=== PATIENT | female | born 1960 | race Hispanic/Latino ===

== ENCOUNTER 2017-08-25 09:13 | Outpatient (CLI) | payer OTHER ==
[2017-08-25] MEDS ORDERED: Iopamidol 370 76% 100 ML VIAL ONE (11:40)
--- NOTE | 2017-08-25 13:02 | CT ---
CT ABDOMEN WITH IV CONTRAST: HISTORY: Renal cysts, acquired bilaterally. FINDINGS: The lung bases are clear. The liver demonstrates decreased attenuation, compared to the spleen, cons istent with fatty infiltration. No calcified gallstones are seen. The spleen, pancreas, and adrenal glands are normal. The right kidney is normal. There is an extrarenal pelvis on the left. A 7 mm, low density lesion i s seen in the posterior cortex of the left kidney, too small to characterize. No free air, free fluid, or lymphadenopathy is seen in the abdomen or pelvis. There are vascular jairo cifications without evidence of aneurysmal dilatation of the abdominal aorta. There is sigmoid diver ticulosis without diverticulitis. A uterus is present. There are degenerative changes in the spine. IMPRESSION: 1. Fatty liver. 2. A 7 mm indeterminate lesion in the left renal cortex. A renal ultrasound would be helpful. 3. Sigmoid diverticulosis. POS: OFF
== END 2017-08-25 09:14 | disposition home or self-care (01) ==
LOC: CT 09:13
PROVIDERS: ATTEND Nurse Practitioner Family
DX: N28.1 Cyst of kidney, acquired (principal); K76.0 Fatty (change of) liver, not elsewhere classified; N28.89 Other specified disorders of kidney and ureter; K57.30 Diverticulosis of large intestine without perforation or abscess without bleeding
CPT/HCPCS: 74160

== ENCOUNTER 2017-08-25 10:47 | Outpatient (CLI) | payer BC | END 2017-08-25 10:48 | disposition home or self-care (01) | LOC: BICMAMMO 10:47 | PROVIDERS: ATTEND Nurse Practitioner Family | DX: Z12.31 Encounter for screening mammogram for malignant neoplasm of breast (principal) | CPT/HCPCS: 77063; 77067 ==

== ENCOUNTER 2017-11-24 12:01 | Outpatient (CLI) | payer BC, OTHER | END 2017-11-24 12:02 | disposition home or self-care (01) | LOC: BICRAD 12:01 | PROVIDERS: ATTEND Internal Medicine Rheumatology | DX: M25.551 Pain in right hip (principal); M25.561 Pain in right knee; M16.11 Unilateral primary osteoarthritis, right hip; M65.28 Calcific tendinitis, other site; M17.11 Unilateral primary osteoarthritis, right knee ==

== ENCOUNTER 2018-11-08 01:34 | Inpatient (IN) | payer BC ==
[2018-11-08] MEDS ORDERED: diphenhydrAMINE 50 MG/ML VIAL ONE (02:02)
[2018-11-08] MEDS ORDERED: Metoclopramide HCl 10 MG/2 ML VIAL ONE (02:07)
[2018-11-08] MEDS ORDERED: Ondansetron PF 4 MG/2 ML Vial ONE ×2 (02:18→09:50)
[2018-11-08] MEDS ORDERED: Morphine 4 MG/ML VIAL ONE (02:18)
[2018-11-08 02:30] LABS: #Basophils 0.1 thou/uL (0.0-0.2); #Eosinphils 0.2 thou/uL (0.0-0.7); #Lymphocytes 2.9 thou/uL (1.20-3.40); #Monocytes 0.8 thou/uL (0.11-0.59); #Neutrophils 9.9 thou/uL (1.40-6.50); %Basophils 0.5 % (0.0-1.0); %Eosinophils 1.2 % (0.0-10.0); %Lymphocytes 21.1 % (21.0-51.0); %Monocytes 5.8 % (0.0-10.0); %Neutrophils 71.4 % (42.0-75.0); Hemoglobin 13.6 g/dL (12.0-16.0); Mean Corpuscular HGB CONC 34.2 g/dL (32.0-36.0); Mean Corpuscular Hemoglobin 31.1 pg (27.0-31.0); Mean Corpuscular Volume 90.8 fL (78.0-98.0); Mean Platelet Volume 7.1 fL (7.4-10.4); Platelet Count 286 thou/uL (130-400); RBC Distribution Width 11.5 % (11.5-14.5); Red Blood Cell (RBC) Count 4.38 mill/uL (4.20-5.40); White Blood Cell (WBC) Count 13.8 thou/uL (4.8-10.8)
[2018-11-08 02:38] LABS: PTT 25.9 SEC (22.9-36.1); Prothrombin Time 13.2 SEC (12.0-14.7)
[2018-11-08 02:51] LABS: ALT (SGPT) 25 U/L (8-55); AST (SGOT) 23 U/L (5-34); Albumin 4.3 g/dL (3.5-5.0); Alkaline Phosphatase 123 U/L (40-150); Anion Gap 14 mmol/L (10-20); BUN (Urea Nitrogen) 17 mg/dL (9.8-20.1); Bilirubin, Total 0.3 mg/dL (0.2-1.2); Calc. Creatinine Clearance 0 mL/min (70-130); Calcium 9.6 mg/dL (7.8-10.44); Carbon Dioxide 24 mmol/L (22-29); Chloride 102 mmol/L (98-107); Estimated GFR-MDRD 78; Globulin 3.7 g/dL (2.4-3.5); Glucose 165 mg/dL (70-105); Potassium 3.7 mmol/L (3.5-5.1); Sodium 136 mmol/L (136-145)
[2018-11-08] MEDS ORDERED: Docusate 100 MG CAP PO PRN (02:51)
[2018-11-08] MEDS ORDERED: diphenhydrAMINE 50 MG CAP PO PRN (02:51)
[2018-11-08] MEDS ORDERED: hydrALAZINE 20 MG/ML VIAL SLOW IVP PRN (02:51)
[2018-11-08] MEDS ORDERED: Labetalol HCl 100 MG/20 ML VIAL SLOW IVP PRN (02:51)
[2018-11-08] MEDS ORDERED: Mag-Al 1200 mg/1200 mg/30 ML UDCUP PO PRN (02:51)
[2018-11-08] MEDS ORDERED: CCU Electrolyte Replacement 1 EACH FS ONE (02:57)
[2018-11-08] MEDS ORDERED: niCARdipine HCl 50 MG in Sodium Chloride 0.9% 250 ML 230 ML IVPB SCH (03:00)
[2018-11-08] MEDS ORDERED: CCU ELECTROLYTE REPLACEMENT PROTOCOL FS PRN (03:03)
[2018-11-08] MEDS ORDERED: Potassium Phosphate 9 MMOL in Sodium Chloride 0.9% 100 ML IVPB PRN (03:03)
[2018-11-08] MEDS ORDERED: PHOS-NAK 1 PKT PACK PO PRN ×2 (03:03)
[2018-11-08] MEDS ORDERED: Potassium Phosphate 15 MMOL in Sodium Chloride 0.9% 250 ML 250 ML IV PRN (03:03)
[2018-11-08] MEDS ORDERED: Magnesium 2 GM/50 ML 2 GM in Premix Bag 1 BAG IVPB PRN (03:03)
[2018-11-08] MEDS ORDERED: Potassium Phosphate 12 MMOL in Sodium Chloride 0.9% 250 ML 250 ML IV PRN (03:03)
[2018-11-08] MEDS ORDERED: Potassium Chloride 40 MEQ in Sodium Chloride 0.9% 250 ML 250 ML IVPB PRN (03:03)
[2018-11-08] MEDS ORDERED: Magnesium Oxide 400 MG TAB PO PRN ×2 (03:03)
[2018-11-08] MEDS ORDERED: niCARdipine 20MG In NaCl 20 MG/200 ML BAG ONE (03:24)
[2018-11-08 03:52] LABS: Bilirubin Negative (Negative); Blood, Urine Negative (Negative); Clarity CLEAR (Clear); Glucose, Urine (Dipstick) Negative (Negative); Leukocyte Negative (Negative); Nitrite Negative (Negative); Protein, Urine (Dipstick) Negative (Neg-Trace); Specific Gravity, Urine 1.037 (1.002-1.036); Urobilinogen 0.2 mg/dL (0.2-1.0)
--- NOTE | 2018-11-08 03:58 | HP ---
HISTORY OF PRESENT ILLNESS: Ms. Mota is a 57-year-old woman, who around midnight tonight, developed severe thunderclap headache with nausea and vomiting and then immediately proceeded to the emergency department here with a CT scan performed revealing diffuse subarachnoid hemorrhage. 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 Her blood pressure when presenting to the department was 158/77. Her current blood pressure is 145/75, I would like to see the systolics below 140. She denies any significant history other than hypertension. Denies taking any blood thinning medications, stating that she only takes home remedies for minor conditions. She does report a known history of hypertension, but does not take medications for this. At bedside, the patient is slightly altered and confused, but is able to tell me her name, date of , location through a son who is interpreting. Pupils are equal, round, and reactive to light. She has full motor function of the bilateral upper and bilateral lower extremities. She continually is rubbing her head and moaning regarding the pain that she feels secondary to this bleed. PAST MEDICAL HISTORY: Significant for diabetes, hypertension. CURRENT MEDICATIONS: Again home remedies, none otherwise. ALLERGIES: NO KNOWN DRUG ALLERGIES. PAST SURGICAL HISTORY: Tubal ligation. PHYSICAL EXAMINATION: HEENT: Pupils equal, round, and reactive to light. Extraocular movements are intact. GENERAL: The patient is in moderate distress, rubbing her head. HEAD: Normocephalic, atraumatic. NEUROLOGIC: 5/5 strength in bilateral upper and bilateral lower extremities. GCS 15. ASSESSMENT: Aneurysmal subarachnoid hemorrhage. PLAN: At this time, we will admit to the ICU. We will consult our hospitalist team for medical management support. She will need pressure control likely with Cardene with systolic pressures under 140 strict. We will need to place a Lima catheter and run normal saline at 125. We will repeat a CT scan at 8 o'clock this morning. We will discuss case with Dr. Crow. The patient will likely need a diagnostic angiogram with coiling later today. We will also start amlodipine and hold her p.o. intake other than medications at this time. Head of bed elevated at 30, and we will need to minimize pain as much as possible. Job ID: [id number]
[2018-11-08] MEDS: Morphine 4 MG/ML VIAL SLOW IVP PRN ×3 (04:21→21:24)
[2018-11-08] MEDS: Sodium Chloride 0.9% 1,000 ML IV SCH ×3 (04:22→20:04)
[2018-11-08] MEDS: niMODipine 30 MG CAP PO SCH ×5 (04:46→20:03)
[2018-11-08] MEDS ORDERED: Dextrose 5% in Water 1,000 ML IV PRN (06:04)
[2018-11-08] MEDS ORDERED: Dextrose 50% Abboject 50 ML SYRINGE SLOW IVP PRN (06:04)
[2018-11-08 06:18] LABS: #Lymphocytes 1.3 thou/uL (1.20-3.40); #Monocytes 0.3 thou/uL (0.11-0.59); #Neutrophils 11.5 thou/uL (1.40-6.50); %Basophils 0.1 % (0.0-1.0); %Eosinophils 0.2 % (0.0-10.0); %Lymphocytes 9.7 % (21.0-51.0); %Monocytes 2.5 % (0.0-10.0); %Neutrophils 87.4 % (42.0-75.0); Hemoglobin 13.6 g/dL (12.0-16.0); Mean Corpuscular HGB CONC 33.5 g/dL (32.0-36.0); Mean Corpuscular Hemoglobin 30.5 pg (27.0-31.0); Mean Corpuscular Volume 91.3 fL (78.0-98.0); Mean Platelet Volume 7.4 fL (7.4-10.4); Platelet Count 273 thou/uL (130-400); RBC Distribution Width 11.6 % (11.5-14.5); Red Blood Cell (RBC) Count 4.47 mill/uL (4.20-5.40); White Blood Cell (WBC) Count 13.1 thou/uL (4.8-10.8)
--- NOTE | 2018-11-08 06:31 | PDOC.PN ---
- Subjective Encounter Start Date: 11/08/18 Encounter Start Time: 06:29 Patient seen and examined for med mngt. h/o DM2 and HTN - home meds unclear. Patient lethargic. Off Cardene drip. - Objective MAR Reviewed: Yes Vital Signs & Weight: Vital Signs (12 hours) Temp Pulse Ox 11/08/18 04:01 97.5 F L 96 Weight Weight 158 lb 11.725 oz Most Recent Monitor Data Heart Rate from ECG 81 NIBP 128/65 NIBP BP-Mean 86 Respiration from ECG 17 SpO2 96 I&O: 11/06/18 11/07/18 11/08/18 06:59 06:59 06:59 Output Total 725 Balance -725 Result Diagrams: 11/08/18 06:00 11/08/18 02:22 EKG Reviewed by me: Yes (Tele SR) Phys Exam - Physical Examination Constitutional: NAD Respiratory: no wheezing, no rhonchi Cardiovascular: RRR, no rub Gastrointestinal: soft, non-tender, positive bowel sounds Musculoskeletal: no edema Dx/Plan - Plan DVT proph w/SCDs 1. 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 HTN emergency - Off Cardene drip 3. DM2 4. h/o HTN 5. CKD 2 6. Leucocytosis - unlikely to be infectious PLAN: Moderate sliding scale Cont PRN antiHTN meds for SBP <140 Nimodipine Will confirm home meds Thank you for this consultation. Will follow Review of Systems - Review of Systems Other: Cannot be reliably obtained due to current mentation - Medications/Allergies Allergies/Adverse Reactions: Allergies Allergy/AdvReac Type Severity Reaction Status Date / Time No Known Allergies Allergy Verified 09/19/13 17:25 Medications: Current Medications Al Hydroxide/Mg Hydroxide (Maalox) 30 ml PO Q6H PRN PRN Reason: Indigestion Dextrose/Water (Dextrose 50%) 25 gm SLOW IVP PRN PRN PRN Reason: Hypoglycemia Diphenhydramine HCl (Benadryl) 50 mg PO Q6H PRN PRN Reason: Itching or Insomnia Docusate Sodium (Colace) 100 mg PO BIDPRN PRN PRN Reason: Constipation Famotidine (Pepcid) 20 mg SLOW IVP Q12HR [facility] Glucagon (Glucagon) 1 mg IM PRN PRN PRN Reason: Hypoglycemia Hydralazine HCl (Apresoline) 5 mg SLOW IVP Q15M PRN PRN Reason: SBP > 140 Nicardipine HCl 50 mg/ Sodium (Chloride) 250 mls @ 0 mls/hr IVPB INF [facility]; Protocol Last Admin: 11/08/18 05:14 Dose: 250 mls Sodium Chloride (Normal Saline 0.9%) 1,000 mls @ 125 mls/hr IV .Q8H [facility] Last Admin: 11/08/18 04:22 Dose: 1,000 mls Potassium Chloride 40 meq/ (Sodium Chloride) 270 mls @ 135 mls/hr IVPB ASDIR PRN PRN Reason: FOR SERUM K+ 2.5 - 3.5 Potassium Chloride 40 meq/ (Device) 100 mls @ 50 mls/hr IVPB ASDIR PRN PRN Reason: FOR SERUM K+ 2.5 - 3.5 Magnesium Sulfate 1 gm/ Sodium (Chloride) 102 mls @ 102 mls/hr IV PRN PRN PRN Reason: MAG LEVEL 1.4 - 2.0 Magnesium Sulfate 2 gm/ Device 50 mls @ 50 mls/hr IVPB ASDIR PRN PRN Reason: MAGNESIUM < 1.4 Potassium Phosphate 9 mmol/ (Sodium Chloride) 103 mls @ 25.75 mls/hr IVPB ASDIR PRN PRN Reason: Phosphate 1.0-1.8 Potassium Phosphate 12 mmol/ (Sodium Chloride) 254 mls @ 63.5 mls/hr IV ASDIR PRN PRN Reason: Serum phosphate 0.5-0.9 Potassium Phosphate 15 mmol/ (Sodium Chloride) 255 mls @ 63.75 mls/hr IV ASDIR PRN PRN Reason: Serum Phos < 0.5 Acetaminophen 1,000 mg/ Device 100 mls @ 400 mls/hr IVPB Q6H PRN PRN Reason: Fever/Mild Pain Stop: 11/09/18 03:24 Dextrose/Water (D5w) 1,000 mls @ 0 mls/hr IV .Q0M PRN PRN Reason: Hypoglycemia Insulin Human Lispro (Humalog) 0 units SC .MODERATE SLIDING SC PRN PRN Reason: Moderate Correctional Scale Labetalol HCl (Normodyne) 10 mg SLOW IVP Q15M PRN PRN Reason: SBP > 140 Magnesium Oxide (Magnesium Oxide) 400 mg PO BIDPRN PRN PRN Reason: FOR SERUM MAG 1.4 - 2.0 Magnesium Oxide (Magnesium Oxide) 800 mg PO PRN PRN PRN Reason: FOR SERUM MAG < 1.4 Miscellaneous Medication (Phos-Nak) 1 pkt PO TIDPRN PRN PRN Reason: FOR PHOS LEVEL 1.0 - 1.8 Miscellaneous Medication (Phos-Nak) 2 pkt PO TIDPRN PRN PRN Reason: FOR PHOS LEVEL 0.5 - 1.0 Morphine Sulfate (Morphine) 2 mg SLOW IVP Q1H PRN PRN Reason: Moderate Pain (4-6) Last Admin: 11/08/18 04:21 Dose: 2 mg Nimodipine (Nimodipine) 60 mg PO Q4HR [facility] Last Admin: 11/08/18 04:46 Dose: Not Given Ccu Electrolyte (Replacement Protocol) 0 each FS PRN PRN PRN Reason: FOR ELECTROLYTE REPLACEMENT Ondansetron HCl (Zofran) 4 mg IVP Q6H PRN PRN Reason: Nausea/Vomiting Potassium Chloride (K-Dur) 40 meq PO ASDIR PRN PRN Reason: FOR SERUM K+ 2.5 - 3.5 Potassium Chloride (Klor-Con) 40 meq PER TUBE ASDIR PRN PRN Reason: FOR SERUM K+ 2.5-3.5
[2018-11-08 06:34] LABS: Anion Gap 16 mmol/L (10-20); BUN (Urea Nitrogen) 13 mg/dL (9.8-20.1); Calc. Creatinine Clearance 97 mL/min (70-130); Calcium 9.3 mg/dL (7.8-10.44); Carbon Dioxide 21 mmol/L (22-29); Chloride 102 mmol/L (98-107); Estimated GFR-MDRD 84; Glucose 171 mg/dL (70-105); Potassium 3.9 mmol/L (3.5-5.1); Sodium 135 mmol/L (136-145)
[2018-11-08] MEDS ORDERED: Iopamidol 370 76% 100 ML VIAL ONE (08:00)
[2018-11-08] MEDS ORDERED: ISOVUE-370 76%-LOCM 1 ML ONE (08:00)
[2018-11-08] MEDS ORDERED: Iopamidol 370 76% 50 ML VIAL FS ONE (08:00)
[2018-11-08] MEDS: Ondansetron PF 4 MG/2 ML Vial IVP PRN ×2 (08:03→17:28)
[2018-11-08] MEDS: Famotidine/PF 20 mg/2ml Vial SLOW IVP SCH ×2 (08:03→19:58)
--- NOTE | 2018-11-08 08:48 | CT ---
PRELIMINARY REPORT/[facility]/EMERGENTY AFTER-HOURS PROCEDURE Addendum created by Danuta Potts MD on 11/08/2018 3:03 AM Central Time ([place] & [place]) THIS REPORT CONTAINS FINDINGS THAT MAY BE CRITICAL TO PATIENT CARE. The findings were verbally commun icated via telephone conference with ELIEL Funes at 2:54 AM CDT on 11/08/2018. The findings w ere acknowledged and understood. Initial Report created on 11/08/2018 3:02 AM Central Time ([place] & [place]) CT Angiography Head Without And With Contrast EXAM DATE/TIME: 11/08/2018 2:32 AM CLINICAL HISTORY: 57 years old, female; Pain; Headache; Patient HX: Er 9; PT woke from sleep with headache, n/v. PT has no HX of headaches. Aphasia. Pt's family deny any recent trauma or injury. TECHNIQUE: Axial computed tomographic angiography images of the head without and with intravenous contrast using CT angiography protocol. Coronal and sagittal reformatted images were created and reviewed. MIP reconstructed images were created and reviewed. COMPARISON: CT Brain WO Con 11/08/2018 2:06 AM FINDINGS: Right internal carotid artery: Unremarkable. Intracranial segment is patent with no significant steno sis. No aneurysm. Right anterior cerebral artery: Unremarkable. No occlusion or significant stenosis. No aneurysm. Right middle cerebral artery: Unremarkable. No occlusion or significant stenosis. No aneurysm. Right posterior cerebral artery: Unremarkable. No occlusion or significant stenosis. No aneurysm. Right vertebral artery: Unremarkable. No occlusion or significant stenosis. No aneurysm. Left internal carotid artery: Ovoid 2 x 4 mm aneurysm distal ICA bifurcation (Se 2, Image 46). Intracranial segment is patent with no significant stenosis. Left anterior cerebral artery: Unremarkable. No occlusion or significant stenosis. No aneurysm. Left middle cerebral artery: Ovoid 4 x 4 mm saccular aneurysm involving distal M1 segment (Se 300, Im age 32) adjacent to bifurcation. Left posterior cerebral artery: Unremarkable. No occlusion or significant stenosis. No aneurysm. Left vertebral artery: Dominant. No occlusion or significant stenosis. No aneurysm. Basilar artery: Unremarkable. No occlusion or significant stenosis. No aneurysm. IMPRESSION: Findings consistent with larger 4 x 4 millimeter aneurysm involving left MCA as described above. Smal ler 2 x 4 mm aneurysm at the distal left ICA bifurcation. Thank you for allowing us to participate in the care of your patient. Dictated and Authenticated by: Danuta Potts MD 11/08/2018 3:02 AM Central Time ([place] & [place]) CT ANGIOGRAM HEAD: HISTORY: Subarachnoid hemorrhage. COMPARISON: None. FINDINGS: This report is in agreement with the preliminary report by [facility]. There is a 5 x 4 mm aneurysm in the distal left M1 segment (adjacent to the left MCA trifurcation). There does appear to be a possible second aneurysm involving the left ICA termination. This aneurysm measures approximately 2 x 2 mm. POS: [facility]
--- NOTE | 2018-11-08 08:49 | CT ---
PRELIMINARY REPORT/[facility]/EMERGENTY AFTER-HOURS PROCEDURE Addendum created by Danuta Potts MD on 11/08/2018 2:22 AM Central Time ([place] & [place]) THIS REPORT CONTAINS FINDINGS THAT MAY BE CRITICAL TO PATIENT CARE. The findings were verbally commun icated via telephone conference with Dr. All HOLLOWAY at 2:18 AM CDT on 11/08/2018. The findings wer e acknowledged and understood. Initial Report created on 11/08/2018 2:21 AM Central Time ([place] & [place]) CT Head Without Contrast EXAM DATE/TIME: 11/08/2018 2:06 AM CLINICAL HISTORY: 57 years old, female; Pain; Headache; Patient HX: Patient presents for evaluation of headache. TECHNIQUE: Axial computed tomography images of the head/brain without contrast. COMPARISON: No relevant prior studies available. FINDINGS: Brain: Moderate-marked diffuse subarachnoid hemorrhage throughout the basilar cisterns and bilateral cerebral sulci. Ventricles: Normal. No ventriculomegaly. Bones/joints: Unremarkable. No acute fracture. Sinuses: Visualized sinuses are unremarkable. No acute sinusitis. Mastoid air cells: Visualized mastoid air cells are unremarkable. No mastoid effusion. Soft tissues: Unremarkable. IMPRESSION: Moderate-marked diffuse subarachnoid hemorrhage throughout the basilar cisterns and bilateral cerebra l sulci. Thank you for allowing us to participate in the care of your patient. Dictated and Authenticated by: Danuta Potts MD 11/08/2018 2:21 AM Central Time ([place] & [place]) FINAL REPORT HEAD CT WITHOUT CONTRAST: HISTORY: Headache. COMPARISON: None. FINDINGS: This report is in agreement with the preliminary report by [facility] [place]. There is diffuse subarachnoid hemorr gem. No midline shift. Cortical whitney-white matter differentiation is preserved. POS: [facility]
[2018-11-08] MEDS ORDERED: Rocuronium Bromide 10 MG/ML (10ML VIAL) ONE (09:50)
[2018-11-08] MEDS ORDERED: PROPOFOL 200 MG/20 ML VIAL ONE (09:50)
[2018-11-08] MEDS ORDERED: Lidocaine 1% PF 5 ML VIAL ONE (09:50)
--- NOTE | 2018-11-08 09:50 | CT ---
CT HEAD NONCONTRAST: COMPARISON: Reference made to head CT from earlier same date. FINDINGS: Redemonstration of diffuse bilateral subarachnoid hemorrhage. There is intraventricular hemorrhagic extension again seen. There is prominence of the temporal horns, relating to a component of obstruct andressa hydrocephalus. No midline shift. IMPRESSION: Redemonstration of diffuse bilateral subarachnoid hemorrhage, with intraventricular hemorrhagic exten corby and obstructive hydrocephalus. Recommend continued imaging followup. POS: [facility]
--- NOTE | 2018-11-08 10:16 | CON ---
DATE OF CONSULTATION: 11/08/2018 CONSULTING PHYSICIAN: Neurosurgical Team. REASON FOR CONSULTATION: ICU management. HISTORY OF PRESENT ILLNESS: This is a 57-year-old Italian-speaking female, obtained her history from reading the chart data. She came in yesterday with a thunderclap headache. She was found to have an aneurysm on the left side. She is going for followup CT this morning. She was hypertensive at the time of admission. She has been placed on a nicardipine drip and her blood pressure right now is running around systolic of 120. Nurse tells me they are not having any problems at this time. PAST MEDICAL HISTORY: 1. Diabetes mellitus. 2. Hypertension. PAST SURGICAL HISTORY: Tubal ligation. MEDICATIONS: Prior to admission, none. ALLERGIES: NONE. PHYSICAL EXAMINATION: VITAL SIGNS: Temperature 98.7; pulse 78; and blood pressure 120/60, that is on nicardipine 2.5 mg/hour. HEENT: Unremarkable. NECK: No JVD. CHEST: Clear. CARDIAC: S1 and S2, regular. ABDOMEN: Soft. EXTREMITIES: No edema. LABORATORY DATA: White blood cell count 13, hematocrit 40, and platelet count 273. Sodium 135, potassium 3.9, chloride 102, CO2 of 21, BUN 13, creatinine 0.7, and glucose 171. IMAGING DATA: CT of the head was reviewed. ASSESSMENT: 1. Aneurysmal brain bleed. 2. Diabetes mellitus. 3. Hypertension. PLAN: Agree with current management including the nicardipine, nimodipine, and sliding-scale insulin. Nothing further to add at this time and we will follow peripherally. Job ID: [id number]
--- NOTE | 2018-11-08 10:57 | PRG ---
DATE OF SERVICE: 11/08/2018 SUBJECTIVE: Ms. Mota is a 57-year-old female admitted after awakening from sleep with severe headache. She presented to the ER where she had a noncontrast head CT which revealed the presence of a diffuse subarachnoid hemorrhage. She had a CT angiogram performed thereafter, which revealed a small left MCA bifurcation aneurysm and a second small left ICA terminus region aneurysm. It is difficult to know which one of these hemorrhage, but there is a propensity blood out within the sylvian fissure, which may suggest the MCA aneurysm was the culprit. CT scan did not show any evidence for ventriculomegaly. She has since had a repeat CT scan which shows that it is stable. I visited with her in the unit today, where she is resting comfortably. She does complain of headache as expected. She has also struggled with nausea over that period of time as well. I met with the patient and three of her daughters, discussed with them the imaging and diagnosis and plans moving forward. I have advocated for cerebral angiography to further characterize the aneurysms. I indicated two of them that they may be amenable to coil endovascular treatment, but if not, she would need a craniotomy with clipping. Also discussed with them ongoing concerns we have over the next couple of few weeks as it relates to hydrocephalus and vasospasm. I did relay to them that she is in a precarious situation and even after treatment of the aneurysm, there are a number of obstacles we will need to overcome. I discussed risks, benefits, and alternatives of all these treatments. They provided informed consent. Job ID: [id number]
[2018-11-08] MEDS ORDERED: Heparin 10,000 UNITS/1 ML VIAL ONE (10:58)
[2018-11-08] MEDS: Acetaminophen 1,000 MG in Premix Bag 1 BAG IVPB PRN ×2 (11:03→19:58)
[2018-11-08] MEDS ORDERED: Heparin 1,000 UNITS/ML VIAL ONE (11:11)
[2018-11-08] MEDS ORDERED: Fentanyl 250 MCG/5 ML VIAL ONE (12:35)
[2018-11-08] MEDS ORDERED: SUGAMMADEX SODIUM 200 MG/2 ML VIAL ONE (14:58)
[2018-11-08] MEDS ORDERED: SUGAMMADEX SODIUM 500 MG/5 ML VIAL ONE (14:58)
[2018-11-08] MEDS ORDERED: Tranexamic Acid 1,000 MG in Sodium Chloride 0.9% 250 ML 250 ML IVPB SCH (17:00)
[2018-11-08] MEDS ORDERED: Tranexamic Acid 1,000 MG in Sodium Chloride 0.9% 100 ML IVPB SCH (17:00)
[2018-11-08] MEDS: Promethazine HCl 25 MG/ML VIAL SLOW IVP PRN (21:24)
--- NOTE | 2018-11-09 01:12 | PRG ---
DATE OF SERVICE: 11/08/2018 This is a 50-minute subsequent patient evaluation, in which greater than 50% of the exam was spent in counseling and coordinating the patient's care. Remainder of the exam was spent in review of patient's medical records and review of appropriate imaging studies. CHIEF COMPLAINT: Status post ruptured left PCOM aneurysm in two areas not amenable to coiling. HISTORY OF PRESENT ILLNESS: As described above, Ms. Mota had presented to our colleague, Dr. Crow with left MCA aneurysm and PCOM ruptured aneurysm and coiling was attempted. Unfortunately, it did not occur and the patient will need clipping of the aneurysm to help secure it. Dr. Cifuentes and I will plan to do this on Thursday. The patient has been started on tranexamic acid and amlodipine and her systolic blood pressure needs to remain less than 140. She clearly is meningitic and that she has significant headaches, nausea and vomiting secondary to irriatation from intracranial hemorrhage throughout the brain. I had a long discussion with the patient and especially her family in regard to treatment and at this time, we will plan to continue clipping of the aneurysm on Thursday. I discussed the possibility of rebleed, which is 3% per day. We will plan for repeat head CT in the morning sooner should the patient decline neurologically. In regard to the patient's exam, again she prefers to keep her eyes closed, will open them, but prefers to keep them closed. She follows commands equally in all four extremities. Again, she is somewhat sleepy and does snore some, but is easily arousable and again follows commands. We will continue to monitor her. Please call with any changes in patient's neurologic status. Job ID: [id number] [facility]
[2018-11-09] MEDS: niMODipine 30 MG CAP PO SCH ×7 (01:19→19:25)
[2018-11-09] MEDS: Sodium Chloride 0.9% 1,000 ML IV SCH ×3 (04:09→16:25)
--- NOTE | 2018-11-09 06:38 | CT ---
CT HEAD WITHOUT CONTRAST: INDICATIONS: Intracranial hemorrhage. Ruptured aneurysm. Followup. COMPARISON: Previous day. FINDINGS: A diffuse bilateral subarachnoid hemorrhage is redemonstrated. No new mass effect, midline shift, or significant size increase of the ventricular system. The prior layering, hyperdense intraventricula r hemorrhage is grossly stable in volume. No additional significant interval change. IMPRESSION: Grossly stable diffuse bilateral subarachnoid hemorrhage. POS: [facility]
[2018-11-09] MEDS: Famotidine/PF 20 mg/2ml Vial SLOW IVP SCH ×2 (07:53→19:25)
[2018-11-09] MEDS: Morphine 4 MG/ML VIAL SLOW IVP PRN ×3 (07:54→19:25)
[2018-11-09] MEDS: Ondansetron PF 4 MG/2 ML Vial IVP PRN ×3 (07:54→20:24)
--- NOTE | 2018-11-09 07:58 | PRG ---
DATE OF SERVICE: 11/09/2018 SUBJECTIVE: The patient is doing reasonably well this morning. She has been weaned off the nicardipine drip. She is communicative. OBJECTIVE: VITAL SIGNS: On exam, temperature is 97.7, pulse 66, blood pressure 124/61, and O2 sat 100%. Intake 3627, output 1930. Weight 168 pounds. HEENT: Unremarkable. NECK: No JVD. CHEST: Clear. CARDIAC: S1 and S2, regular. ABDOMEN: Soft. EXTREMITIES: No edema. LABORATORY DATA: Labs were not done today. ASSESSMENT: 1. Status post brain bleed from aneurysm. 2. Hypertension, which is under control. PLAN: 1. Aneurysmal clipping tomorrow by Dr. Cifuentes. 2. Nicardipine as needed for blood pressure control. 3. Recheck labs tomorrow. Job ID: [id number]
[2018-11-09 10:19] LABS: #Lymphocytes 2.9 thou/uL (1.20-3.40); #Monocytes 0.8 thou/uL (0.11-0.59); #Neutrophils 8.3 thou/uL (1.40-6.50); %Basophils 0.4 % (0.0-1.0); %Lymphocytes 24.3 % (21.0-51.0); %Neutrophils 68.3 % (42.0-75.0); Hemoglobin 13.1 g/dL (12.0-16.0); Mean Corpuscular HGB CONC 32.9 g/dL (32.0-36.0); Mean Corpuscular Hemoglobin 30.2 pg (27.0-31.0); Mean Corpuscular Volume 91.9 fL (78.0-98.0); Mean Platelet Volume 6.8 fL (7.4-10.4); Platelet Count 256 thou/uL (130-400); RBC Distribution Width 11.8 % (11.5-14.5); Red Blood Cell (RBC) Count 4.33 mill/uL (4.20-5.40); White Blood Cell (WBC) Count 12.1 thou/uL (4.8-10.8)
[2018-11-09 10:47] LABS: Anion Gap 12 mmol/L (10-20); BUN (Urea Nitrogen) 8 mg/dL (9.8-20.1); Calc. Creatinine Clearance 120 mL/min (70-130); Calcium 8.8 mg/dL (7.8-10.44); Carbon Dioxide 23 mmol/L (22-29); Chloride 111 mmol/L (98-107); Estimated GFR-MDRD Greater than 90; Glucose 110 mg/dL (70-105); Potassium 3.4 mmol/L (3.5-5.1); Sodium 143 mmol/L (136-145)
--- NOTE | 2018-11-09 11:04 | PRG ---
DATE OF SERVICE: 11/09/2018 This is 50-minute initial hospital visit note, in which 50 minutes were spent reviewing the imaging record, evaluation, examination of the patient, formulation of plan on Colleen Mota. I reviewed the notes of my colleague, Greg Chilel PA-C and I agree with its content. SUBJECTIVE: Ms. Mota is a very pleasant 57-year-old woman, who presented with thunderclap headache early Thursday morning. She is a first-degree relative, namely her father who had a ruptured aneurysm and prior to hospitalization. She has 2 daughters, who were at the bedside currently. While her head CT demonstrated a Hameed 3+1 subarachnoid hemorrhage with intraventricular extension, there was no associated hydrocephalus, but as expected, cerebral edema present. She remains, however, good clinical grade. She is drowsy and has photophobia and phonophobia, not surprising given the subarachnoid hemorrhage and dural irritation, however, she is otherwise nonfocal. She has been on IV fluids and most recently has had increased urine output. Urine specific gravity is 1.003. We are sending a blood sodium to assess her diabetes insipidus. She has also on nimodipine and her hemodynamics have been essentially stable and non-hypertensive. Endovascular attempted coil embolization was performed yesterday. A CT angiogram demonstrated a left PCOM aneurysm and a left MCA bifurcation aneurysm with suspicion that the bleed source is the left MCA aneurysm, but we were unable to endovascularly treat the aneurysm given its morphology and configuration. As such, the plan is for craniotomy and clipping of both aneurysms tomorrow morning. I extensively discussed the surgery of left frontotemporal craniotomy with possible external ventricular drain or lumbar drain placement to treat cerebral edema and hydrocephalus and attempted brain relaxation with the family and clipping of both aneurysms for obliteration. I understand the risks are up to and including, but not limited to, wound healing issues such as infection, dehiscence, CSF leak, recurrence of aneurysm, the need for further surgery such as shunt, stroke, seizure temporary and permanent neurologic deficit and associated medical complications. They understand the morbidity and mortality associated with the aneurysmal subarachnoid hemorrhage despite treatment and they wish that we proceed. We will proceed tomorrow morning. We will follow up on her urine output studies x1, left MCA bifurcation, and left PCOM aneurysm with subarachnoid hemorrhage. Job ID: [id number]
--- NOTE | 2018-11-09 13:47 | PDOC.PN ---
- Subjective Encounter Start Date: 11/09/18 Encounter Start Time: 13:00 Subjective: awake, c/o headache, no vomiting but mild nausea - Objective MAR Reviewed: Yes Vital Signs & Weight: Vital Signs (12 hours) Temp Pulse Pulse BP BP Pulse Ox Pulse Ox 11/09/18 10:15 69 70 128/54 L 131/56 L 100 99 11/09/18 08:00 97.5 F L 11/09/18 04:00 97.7 F Weight Admit Weight 168 lb Weight 168 lb 3.403 oz Most Recent Monitor Data Heart Rate from ECG 70 NIBP 135/57 NIBP BP-Mean 83 Respiration from ECG 18 SpO2 100 I&O: 11/08/18 11/09/18 11/10/18 06:59 06:59 06:59 Intake Total 3627 60 Output Total 725 1498 8081 Balance -725 1379 -2228 Result Diagrams: 11/09/18 10:11 11/09/18 10:11 Additional Labs: Accuchecks 11/09/18 11/09/18 11/08/18 12:07 04:58 21:38 POC Glucose 105 136 H 145 H 11/08/18 16:24 POC Glucose 120 H Phys Exam - Physical Examination HEENT: PERRLA, moist MMs Neck: no JVD, supple Respiratory: no wheezing, no rales Cardiovascular: RRR, no significant murmur Gastrointestinal: soft, non-tender, positive bowel sounds Musculoskeletal: no edema, pulses present Neurological: non-focal, moves all 4 limbs Psychiatric: normal affect, A&O x 3 Dx/Plan (1) SAH (subarachnoid hemorrhage) Code(s): I60.9 - NONTRAUMATIC SUBARACHNOID HEMORRHAGE, UNSPECIFIED Status: Acute (2) Intracranial aneurysm Code(s): I67.1 - CEREBRAL ANEURYSM, NONRUPTURED Status: Acute Comment: pcom for clipping in am (3) HTN (hypertension) Code(s): I10 - ESSENTIAL (PRIMARY) HYPERTENSION Status: Acute Qualifiers: Hypertension type: essential hypertension Qualified Code(s): I10 - Essential (primary) hypertension - Plan for aneurysmal clipping in am by -: nimodipine, cardene prn for sbp <140 -: morphine and ultram prn -: hemostable now, no motor deficits as of now -: family had detailed d/w at bedside * . Review of Systems - Medications/Allergies Allergies/Adverse Reactions: Allergies Allergy/AdvReac Type Severity Reaction Status Date / Time No Known Allergies Allergy Verified 09/19/13 17:25 Medications: Current Medications Al Hydroxide/Mg Hydroxide (Maalox) 30 ml PO Q6H PRN PRN Reason: Indigestion Dextrose/Water (Dextrose 50%) 25 gm SLOW IVP PRN PRN PRN Reason: Hypoglycemia Diphenhydramine HCl (Benadryl) 50 mg PO Q6H PRN PRN Reason: Itching or Insomnia Docusate Sodium (Colace) 100 mg PO BIDPRN PRN PRN Reason: Constipation Famotidine (Pepcid) 20 mg SLOW IVP Q12HR [facility] Last Admin: 11/09/18 07:53 Dose: 20 mg Glucagon (Glucagon) 1 mg IM PRN PRN PRN Reason: Hypoglycemia Hydralazine HCl (Apresoline) 5 mg SLOW IVP Q15M PRN PRN Reason: SBP > 140 Nicardipine HCl 50 mg/ Sodium (Chloride) 250 mls @ 0 mls/hr IVPB INF ARIEL; Protocol Last Admin: 11/08/18 05:14 Dose: 250 mls Sodium Chloride (Normal Saline 0.9%) 1,000 mls @ 125 mls/hr IV .Q8H [facility] Last Admin: 11/09/18 12:10 Dose: Not Given Potassium Chloride 40 meq/ (Sodium Chloride) 270 mls @ 135 mls/hr IVPB ASDIR PRN PRN Reason: FOR SERUM K+ 2.5 - 3.5 Potassium Chloride 40 meq/ (Device) 100 mls @ 50 mls/hr IVPB ASDIR PRN PRN Reason: FOR SERUM K+ 2.5 - 3.5 Magnesium Sulfate 1 gm/ Sodium (Chloride) 102 mls @ 102 mls/hr IV PRN PRN PRN Reason: MAG LEVEL 1.4 - 2.0 Magnesium Sulfate 2 gm/ Device 50 mls @ 50 mls/hr IVPB ASDIR PRN PRN Reason: MAGNESIUM < 1.4 Potassium Phosphate 9 mmol/ (Sodium Chloride) 103 mls @ 25.75 mls/hr IVPB ASDIR PRN PRN Reason: Phosphate 1.0-1.8 Potassium Phosphate 12 mmol/ (Sodium Chloride) 254 mls @ 63.5 mls/hr IV ASDIR PRN PRN Reason: Serum phosphate 0.5-0.9 Potassium Phosphate 15 mmol/ (Sodium Chloride) 255 mls @ 63.75 mls/hr IV ASDIR PRN PRN Reason: Serum Phos < 0.5 Dextrose/Water (D5w) 1,000 mls @ 0 mls/hr IV .Q0M PRN PRN Reason: Hypoglycemia Tranexamic Acid 1,000 mg/ (Sodium Chloride) 260 mls @ 32.5 mls/hr IVPB INF [facility] Stop: 11/10/18 12:00 Last Admin: 11/08/18 17:14 Dose: 260 mls Insulin Human Lispro (Humalog) 0 units SC .MODERATE SLIDING SC PRN PRN Reason: Moderate Correctional Scale Labetalol HCl (Normodyne) 10 mg SLOW IVP Q15M PRN PRN Reason: SBP > 140 Magnesium Oxide (Magnesium Oxide) 400 mg PO BIDPRN PRN PRN Reason: FOR SERUM MAG 1.4 - 2.0 Magnesium Oxide (Magnesium Oxide) 800 mg PO PRN PRN PRN Reason: FOR SERUM MAG < 1.4 Miscellaneous Medication (Phos-Nak) 1 pkt PO TIDPRN PRN PRN Reason: FOR PHOS LEVEL 1.0 - 1.8 Miscellaneous Medication (Phos-Nak) 2 pkt PO TIDPRN PRN PRN Reason: FOR PHOS LEVEL 0.5 - 1.0 Morphine Sulfate (Morphine) 2 mg SLOW IVP Q1H PRN PRN Reason: Moderate Pain (4-6) Last Admin: 11/09/18 07:54 Dose: 2 mg Nimodipine (Nimodipine) 60 mg PO Q4HR [facility] Last Admin: 11/09/18 07:54 Dose: 60 mg Ccu Electrolyte (Replacement Protocol) 0 each FS PRN PRN PRN Reason: FOR ELECTROLYTE REPLACEMENT Ondansetron HCl (Zofran) 4 mg IVP Q6H PRN PRN Reason: Nausea/Vomiting Last Admin: 11/09/18 07:54 Dose: 4 mg Potassium Chloride (K-Dur) 40 meq PO ASDIR PRN PRN Reason: FOR SERUM K+ 2.5 - 3.5 Potassium Chloride (Klor-Con) 40 meq PER TUBE ASDIR PRN PRN Reason: FOR SERUM K+ 2.5-3.5 Promethazine HCl (Phenergan) 6.25 mg SLOW IVP Q6H PRN PRN Reason: Nausea/Vomiting Last Admin: 11/08/18 21:24 Dose: 6.25 mg Tramadol HCl (Ultram) 50 mg PO Q6H PRN PRN Reason: Pain
[2018-11-09] MEDS: traMADol HCl 50 MG TAB PO PRN ×2 (14:09→20:24)
[2018-11-09] MEDS: Promethazine HCl 25 MG/ML VIAL SLOW IVP PRN (17:50)
[2018-11-09] MEDS: Promethazine HCl 6.25 MG in Sodium Chloride 0.9% 50 ML IVPB PRN (23:40)
[2018-11-10] MEDS: niMODipine 30 MG CAP PO SCH ×6 (00:18→21:06)
[2018-11-10] MEDS: Sodium Chloride 0.9% 1,000 ML IV SCH ×4 (03:12→21:07)
[2018-11-10] MEDS: Morphine 4 MG/ML VIAL SLOW IVP PRN (03:12)
[2018-11-10 04:19] LABS: #Lymphocytes 2.6 thou/uL (1.20-3.40); #Monocytes 0.7 thou/uL (0.11-0.59); #Neutrophils 7.4 thou/uL (1.40-6.50); %Basophils 0.2 % (0.0-1.0); %Eosinophils 0.1 % (0.0-10.0); %Lymphocytes 24.1 % (21.0-51.0); %Monocytes 6.3 % (0.0-10.0); %Neutrophils 69.3 % (42.0-75.0); Hemoglobin 12.1 g/dL (12.0-16.0); Mean Corpuscular HGB CONC 33.5 g/dL (32.0-36.0); Mean Corpuscular Hemoglobin 30.9 pg (27.0-31.0); Mean Corpuscular Volume 92.3 fL (78.0-98.0); Mean Platelet Volume 6.9 fL (7.4-10.4); Platelet Count 226 thou/uL (130-400); RBC Distribution Width 11.8 % (11.5-14.5); Red Blood Cell (RBC) Count 3.93 mill/uL (4.20-5.40); White Blood Cell (WBC) Count 10.7 thou/uL (4.8-10.8)
[2018-11-10 04:37] LABS: Anion Gap 13 mmol/L (10-20); BUN (Urea Nitrogen) 9 mg/dL (9.8-20.1); Calc. Creatinine Clearance 126 mL/min (70-130); Calcium 8.3 mg/dL (7.8-10.44); Carbon Dioxide 21 mmol/L (22-29); Chloride 104 mmol/L (98-107); Estimated GFR-MDRD Greater than 90; Glucose 110 mg/dL (70-105); Potassium 3.3 mmol/L (3.5-5.1); Sodium 135 mmol/L (136-145)
[2018-11-10] MEDS: Potassium Chloride 20 MEQ TAB PO PRN (05:29)
[2018-11-10] MEDS: traMADol HCl 50 MG TAB PO PRN (05:29)
[2018-11-10] MEDS ORDERED: niCARdipine HCl 25 MG in Sodium Chloride 0.9% 250 ML 240 ML IVPB SCH (06:00)
[2018-11-10] MEDS ORDERED: Midazolam HCl 2 mg/2 ml Vial ONE (06:49)
[2018-11-10] MEDS ORDERED: Fentanyl 100 MCG/2 ML VIAL ONE ×4 (06:49→10:35)
[2018-11-10] MEDS ORDERED: Papaverine 60 MG/2 ML VIAL ONE (06:51)
[2018-11-10] MEDS ORDERED: Lidocaine 0.5%/Epinephrine 1:200,000 50 ml Vial ONE (06:51)
[2018-11-10] MEDS ORDERED: Sodium Chloride 0.9% 30 ML ONE (06:52)
[2018-11-10] MEDS ORDERED: Bacitracin Zinc Ointment 30 gm TUBE ONE (06:52)
[2018-11-10] MEDS ORDERED: Indocyanine Green 25 MG/10 ML VIAL ONE (07:00)
[2018-11-10] MEDS ORDERED: Insulin Regular 300 UNITS/3 ML VIAL ONE (07:06)
--- NOTE | 2018-11-10 07:51 | PRG ---
DATE OF SERVICE: 11/10/2018 SUBJECTIVE: Ms. Mota is doing well and only complaints of a headache. She is scheduled to go down for craniotomy for aneurysm clipping today. OBJECTIVE: VITAL SIGNS: On exam, temperature is 98.2, pulse 67, blood pressure 131/67. Intake 3606, output 5960. HEENT: Unremarkable. NECK: No JVD. CHEST: Clear. CARDIAC: S1, S2. Regular. ABDOMEN: Soft. EXTREMITIES: Trace edema. LABORATORY DATA: Sodium 135, down from 143, potassium 3.3, chloride 104, CO2 of 21, BUN 9, creatinine 0.5, glucose 110. White blood cell count 10.7, hemoglobin 12, hematocrit 36, and platelet count 226. Her serum osmolality was 296. ASSESSMENT: 1. Status post aneurysmal bleed. 2. Two brain aneurysms. 3. Salt-wasting leading to excess urine output. 4. Hypertension. 5. Hypokalemia. PLAN: 1. Her potassium will be replaced. 2. Continue to monitor sodium. 3. Continue CCU care. It is anticipated she will be in here for quite a while, because of risk of vasospasms. Job ID: [id number]
[2018-11-10] MEDS: Famotidine/PF 20 mg/2ml Vial SLOW IVP SCH ×2 (09:23→21:06)
[2018-11-10] MEDS ORDERED: Ondansetron PF 4 MG/2 ML Vial ONE (09:56)
[2018-11-10] MEDS ORDERED: PHENYLEPHRINE-NS 100 MCG/ML 10 ML SYRINGE ONE (09:56)
[2018-11-10] MEDS ORDERED: Lidocaine 1% PF 5 ML VIAL ONE (09:56)
[2018-11-10] MEDS ORDERED: Dexamethasone 20 MG/5 ML VIAL ONE (09:56)
[2018-11-10] MEDS ORDERED: Glycopyrrolate 0.2 MG/ML 5 ML SYRINGE ONE (09:56)
[2018-11-10] MEDS ORDERED: Rocuronium Bromide 10 MG/ML (10ML VIAL) ONE (09:56)
[2018-11-10] MEDS ORDERED: PROPOFOL 200 MG/20 ML VIAL ONE (09:56)
[2018-11-10] MEDS ORDERED: Rocuronium Bromide 50 MG/5 ML VIAL ONE (10:35)
[2018-11-10] MEDS ORDERED: Sodium Chloride 0.9% 10 ML ONE (13:09)
[2018-11-10] MEDS ORDERED: Labetalol HCl 100 MG/20 ML VIAL SLOW IVP PRN (14:56)
[2018-11-10] MEDS ORDERED: hydrALAZINE 20 MG/ML VIAL SLOW IVP PRN (14:57)
[2018-11-10] MEDS ORDERED: Promethazine HCl 25 MG/ML VIAL IM PRN (15:23)
[2018-11-10] MEDS ORDERED: Ondansetron HCl/PF 4 MG/2 ML Vial IVP PRN (15:23)
[2018-11-10] MEDS ORDERED: Promethazine HCl 25 MG/ML VIAL SLOW IVP PRN (15:23)
[2018-11-10] MEDS: HumaLOG 300 UNITS/3 ML VIAL SC PRN (16:17)
--- NOTE | 2018-11-10 19:22 | PDOC.PN ---
- Subjective Encounter Start Date: 11/10/18 Encounter Start Time: 17:00 Patient seen and examined for med mngt. No new complaints. No overnight events - Objective MAR Reviewed: Yes Vital Signs & Weight: Vital Signs (12 hours) Temp Pulse Ox 11/10/18 16:25 98 11/10/18 16:00 98.7 F Weight Admit Weight 168 lb Weight 161 lb 6.054 oz Most Recent Monitor Data Heart Rate from ECG 68 NIBP 137/63 NIBP BP-Mean 87 Respiration from ECG 15 SpO2 98 I&O: 11/09/18 11/10/18 11/11/18 06:59 06:59 06:59 Intake Total 3627 3606.9 283 Output Total 1930 5960 660 Balance 1697 -2353.1 -377 Result Diagrams: 11/10/18 04:10 11/10/18 04:10 Additional Labs: Accuchecks 11/10/18 11/10/18 11/09/18 16:01 05:37 23:01 POC Glucose 155 H 95 108 Phys Exam - Physical Examination Constitutional: NAD Respiratory: no wheezing, no rhonchi Cardiovascular: RRR, no rub Gastrointestinal: soft, positive bowel sounds Musculoskeletal: no edema Neurological: moves all 4 limbs Dx/Plan - Plan DVT proph w/SCDs 1. 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 HTN emergency 3. DM2 4. Hypokalemia 5. h/o HTN 6. CKD 2 PLAN: Cont sliding scale Cont PRN antiHTN meds for SBP <140 Nimodipine Cont IVF AM labs Review of Systems - Review of Systems Cardiovascular: negative: chest pain, palpitations, orthopnea, paroxysmal nocturnal dyspnea, edema, light headedness, other Gastrointestinal: negative: Nausea, Vomiting, Abdominal Pain, Diarrhea, Constipation, Melena, Hematochezia, Other - Medications/Allergies Allergies/Adverse Reactions: Allergies Allergy/AdvReac Type Severity Reaction Status Date / Time No Known Allergies Allergy Verified 09/19/13 17:25 Medications: Current Medications Al Hydroxide/Mg Hydroxide (Maalox) 30 ml PO Q6H PRN PRN Reason: Indigestion Dextrose/Water (Dextrose 50%) 25 gm SLOW IVP PRN PRN PRN Reason: Hypoglycemia Diphenhydramine HCl (Benadryl) 50 mg PO Q6H PRN PRN Reason: Itching or Insomnia Docusate Sodium (Colace) 100 mg PO BIDPRN PRN PRN Reason: Constipation Famotidine (Pepcid) 20 mg SLOW IVP Q12HR [facility] Last Admin: 11/10/18 09:23 Dose: Not Given Glucagon (Glucagon) 1 mg IM PRN PRN PRN Reason: Hypoglycemia Hydralazine HCl (Apresoline) 5 mg SLOW IVP Q15M PRN PRN Reason: SBP > 190 Potassium Chloride 40 meq/ (Sodium Chloride) 270 mls @ 135 mls/hr IVPB ASDIR PRN PRN Reason: FOR SERUM K+ 2.5 - 3.5 Last Admin: 11/09/18 16:25 Dose: 270 mls Potassium Chloride 40 meq/ (Device) 100 mls @ 50 mls/hr IVPB ASDIR PRN PRN Reason: FOR SERUM K+ 2.5 - 3.5 Magnesium Sulfate 1 gm/ Sodium (Chloride) 102 mls @ 102 mls/hr IV PRN PRN PRN Reason: MAG LEVEL 1.4 - 2.0 Last Admin: 11/09/18 16:25 Dose: 102 mls Magnesium Sulfate 2 gm/ Device 50 mls @ 50 mls/hr IVPB ASDIR PRN PRN Reason: MAGNESIUM < 1.4 Potassium Phosphate 9 mmol/ (Sodium Chloride) 103 mls @ 25.75 mls/hr IVPB ASDIR PRN PRN Reason: Phosphate 1.0-1.8 Potassium Phosphate 12 mmol/ (Sodium Chloride) 254 mls @ 63.5 mls/hr IV ASDIR PRN PRN Reason: Serum phosphate 0.5-0.9 Potassium Phosphate 15 mmol/ (Sodium Chloride) 255 mls @ 63.75 mls/hr IV ASDIR PRN PRN Reason: Serum Phos < 0.5 Dextrose/Water (D5w) 1,000 mls @ 0 mls/hr IV .Q0M PRN PRN Reason: Hypoglycemia Promethazine HCl 6.25 mg/ (Sodium Chloride) 50.25 mls @ 201 mls/hr IVPB Q6H PRN PRN Reason: Nausea Last Admin: 11/09/18 23:40 Dose: 50.25 mls Sodium Chloride (Normal Saline 0.9%) 1,000 mls @ 150 mls/hr IV .Q6H40M [facility] Last Admin: 11/10/18 16:20 Dose: 1,000 mls Cefazolin Sodium/Dextrose 2 gm (/ Device) 50 mls @ 100 mls/hr IVPB Q8HR [facility] Insulin Human Lispro (Humalog) 0 units SC .MODERATE SLIDING SC PRN PRN Reason: Moderate Correctional Scale Last Admin: 11/10/18 16:17 Dose: 2 unit Labetalol HCl (Normodyne) 10 mg SLOW IVP Q15M PRN PRN Reason: SBP > 190 Magnesium Oxide (Magnesium Oxide) 400 mg PO BIDPRN PRN PRN Reason: FOR SERUM MAG 1.4 - 2.0 Magnesium Oxide (Magnesium Oxide) 800 mg PO PRN PRN PRN Reason: FOR SERUM MAG < 1.4 Miscellaneous Medication (Phos-Nak) 1 pkt PO TIDPRN PRN PRN Reason: FOR PHOS LEVEL 1.0 - 1.8 Miscellaneous Medication (Phos-Nak) 2 pkt PO TIDPRN PRN PRN Reason: FOR PHOS LEVEL 0.5 - 1.0 Morphine Sulfate (Morphine) 2 mg SLOW IVP Q1H PRN PRN Reason: Moderate Pain (4-6) Last Admin: 11/10/18 03:12 Dose: 2 mg Nimodipine (Nimodipine) 60 mg PO Q4HR [facility] Last Admin: 11/10/18 17:33 Dose: 60 mg Ccu Electrolyte (Replacement Protocol) 0 each FS PRN PRN PRN Reason: FOR ELECTROLYTE REPLACEMENT Ondansetron HCl (Zofran) 4 mg IVP Q6H PRN PRN Reason: Nausea/Vomiting Last Admin: 11/09/18 20:24 Dose: 4 mg Potassium Chloride (K-Dur) 40 meq PO ASDIR PRN PRN Reason: FOR SERUM K+ 2.5 - 3.5 Last Admin: 11/10/18 05:29 Dose: 40 meq Potassium Chloride (Klor-Con) 40 meq PER TUBE ASDIR PRN PRN Reason: FOR SERUM K+ 2.5-3.5 Promethazine HCl (Phenergan) 6.25 mg SLOW IVP Q6H PRN PRN Reason: Nausea/Vomiting Last Admin: 11/09/18 17:50 Dose: 6.25 mg Tramadol HCl (Ultram) 50 mg PO Q6H PRN PRN Reason: Pain Last Admin: 11/10/18 05:29 Dose: 50 mg
[2018-11-10] MEDS: CEFAZOLIN 2 GM in Premix Bag 1 BAG IVPB SCH (21:07)
[2018-11-10] MEDS: Ondansetron PF 4 MG/2 ML Vial IVP PRN (21:58)
[2018-11-11] MEDS: niMODipine 30 MG CAP PO SCH ×6 (02:06→20:33)
[2018-11-11 03:30] LABS: Anion Gap 12 mmol/L (10-20); BUN (Urea Nitrogen) 11 mg/dL (9.8-20.1); Calc. Creatinine Clearance 121 mL/min (70-130); Calcium 7.7 mg/dL (7.8-10.44); Carbon Dioxide 20 mmol/L (22-29); Chloride 110 mmol/L (98-107); Estimated GFR-MDRD Greater than 90; Glucose 112 mg/dL (70-105); Potassium 3.1 mmol/L (3.5-5.1); Sodium 139 mmol/L (136-145)
[2018-11-11] MEDS: CEFAZOLIN 2 GM in Premix Bag 1 BAG IVPB SCH ×3 (05:07→20:35)
[2018-11-11] MEDS: Sodium Chloride 0.9% 1,000 ML IV SCH ×3 (05:12→17:03)
--- NOTE | 2018-11-11 06:56 | CT ---
CT HEAD NONCONTRAST: CLINICAL HISTORY: Status post aneurysm clipping. History of ruptured aneurysm with acute subarachnoid hemorrhage. COMPARISON: 11/09/2018 FINDINGS: Interval development of left pterional craniotomy with aneurysm clips present at the course of the le ft MCA with associated streak artifact. There is a postoperative pneumocephalus. There is residual, diffuse bilateral subarachnoid hemorrhage, although this has decreased in volume slightly. Mild res idual intraventricular hemorrhage is present, which has decreased in density. The ventricular system has slightly decreased in volume. Mild rightward midline shift measures approximately 4 mm at the l evel of the septum pellucidum. Partially imaged small fluid level is seen at the inferior right maxi llary sinus. There is opacification of the left frontal air cell. IMPRESSION: 1. Status post left middle cerebral artery region aneurysm clipping with streak artifact. 2. There is a postoperative pneumocephalus with mild rightward subfalcine herniation. 3. Interval slight decrease in volume of diffuse bilateral subarachnoid hemorrhage. Recommend continued imaging followup. POS: [facility]
--- NOTE | 2018-11-11 08:01 | PRG ---
DATE OF SERVICE: 11/11/2018 SUBJECTIVE: The patient is status post aneurysmal clipping yesterday. She has done well. It does not look like she has required any type of vasopressor therapy for vasospasm. OBJECTIVE: VITAL SIGNS: Temperature 98.5, pulse 74, blood pressure 141/73, O2 saturation 100%. HEENT: She has a large dressing around her head. Oropharynx clear. NECK: No adenopathy. No JVD. CHEST: Clear. CARDIAC: S1, S2. Regular. ABDOMEN: Soft, nontender. EXTREMITIES: She has generalized edema throughout. LABORATORY DATA: Sodium 139, potassium 3.1, chloride 110, CO2 of 20, BUN 11, creatinine 0.5, glucose 112. Head CT result was reviewed. ASSESSMENT: 1. Status post aneurysmal clipping. 2. Salt-wasting leading to excessive urine output, which is now stabilized. 3. Hypertension. 4. Hypokalemia. PLAN: 1. Replace potassium. 2. Continue to monitor in the CCU for vasospasm. 3. She continues on nimodipine. 4. Continue IV fluids. Job ID: [id number]
[2018-11-11] MEDS: Famotidine/PF 20 mg/2ml Vial SLOW IVP SCH ×2 (10:11→20:33)
[2018-11-11 11:15] LABS: Sodium 138 mmol/L (136-145)
--- NOTE | 2018-11-11 13:41 | OP ---
DATE OF PROCEDURE: 11/10/2018 MANAGER ADOBE: Greg Chilel PA-C. 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 POSTPROCEDURE DIAGNOSES: Two anterior circulation aneurysms, one left PCOM aneurysm and one left MCA bifurcation aneurysm with subarachnoid hemorrhage (left PCOM was the ruptured aneurysm). PROCEDURES PERFORMED: 1. Left frontotemporal craniotomy with drilling down of the sphenoid wing for exposure with subfrontal/transylvian approach for clipping of simple left PCOM aneurysm and clipping reconstruction of complex left MCA aneurysm. 2. Use of operative microscope for microdissection. DESCRIPTION OF PROCEDURE: After informed consent was obtained from the patient' s family, the patient was brought to the OR. Proper patient, pause, and identification were carried out. She was placed under excellent endotracheal anesthesia and positioned supine on the OR table with her head turned to the right and secured in the [place] [facility] head cook. Identified the left frontotemporal region allowing for the malar eminence to be the highest point. We then clipped hair and berna out a question-carolyn incision and this area was sterilely cleansed, prepared, and draped. Local anesthetic was used for the pin sites in the incision. This area was sterilely cleansed, prepared, and draped. Proper patient, pause, and identification were carried out. The wound was then opened with combination of sharp, monopolar, and blunt dissection and then scalp flap was flapped forward with the temporalis muscle included, frankie holes were fashioned and a craniotomy was performed. We did not enter the frontal sinus. I made sure we came low enough to allow for subfrontal transsylvian approach. The dura was opened and flapped with the scalp flap. Copious irrigation occurred. We maximized hemostasis. The microscope was then brought into the field and with the use of the Seferino Halo retractor, we gently retracted the inferior left frontal lobe. I then proceeded to expose the left optic nerve and the opticocarotid triangle. I visualized the left third nerve in the PCOM aneurysm. I was sure to obtain proximal control with the left supraclinoid carotid in case of intraoperative rupture as it was unclear which of the two aneurysms had presented with rupture for causing the patient's subarachnoid hemorrhage. I dissected the neck of the aneurysm and it was adherent to the third nerve. While dissecting along the neck, rebleed occurred, and I knew that the left PCOM aneurysm was one that hemorrhaged. I then put a temporary clip on the supraclinoid carotid for 62 seconds and was able to obtain control and then clipped the PCOM aneurysm. I assured the clip was free of the PCOM and the third nerve and did not incorporate the anterior choroidal artery. Again, the clamp time on the carotid was 62 seconds and the clip was removed and perfusion restored. We then dissected along the medial sylvian fissure and identified the supraclinoid for the portions of the carotid terminus along with the left M1. I proceeded along the M1 to the bifurcation and it was at that point, I discovered a very complex multilobulated with at least three daughter sacs aneurysm at the left MCA bifurcation. This had not ruptured, but it was quite adherent to both of the post bifurcation segments of the M1. In fact, it took quite tedious dissection to at least to free it up from one of the segments. I was able to do so, but it was quite clear that in order to secure this aneurysm, I needed to use multiple clips as such I used a right angled clip, a curved clip, and a straight clip to obliterate the aneurysm. At the conclusion, we used IC green angiography to make sure that we did not have any worrisome stenosis. There was moderate vasospasm of the MCA and I used papaverine to promote vasodilation. At the conclusion, we copiously irrigated the wound, maximized hemostasis. The dura was reapproximated as was the craniotomy flap with titanium plates and screws. The wound was then closed in anatomic layers over drain. The patient then emerged from anesthesia. Job ID: [id number] [facility]AMPUSLeonela
--- NOTE | 2018-11-11 14:41 | OP ---
DATE OF PROCEDURE: 11/10/2018 PIG MACHINE OPERATOR HELPER: Greg Chilel PA-C PREPROCEDURE DIAGNOSES: 1. Ruptured left middle cerebral artery versus left posterior cerebral artery aneurysm with subarachnoid hemorrhage. 2. Left frontotemporal craniotomy with clipping of left middle cerebral artery and left posterior cerebral artery aneurysm. POSTPROCEDURE DIAGNOSES: 1. Ruptured left middle cerebral artery versus left posterior cerebral artery aneurysm with subarachnoid hemorrhage. 2. Left frontotemporal craniotomy with clipping of left middle cerebral artery and left posterior cerebral artery aneurysm. SPECIMENS: None. ESTIMATED BLOOD LOSS: 400 mL. FINDINGS: 1. Ruptured left MCA versus left SIGNAL INSPECTOR aneurysm with subarachnoid hemorrhage. 2. Left frontotemporal craniotomy with clipping of left MCA and left SIGNAL INSPECTOR aneurysm. Job ID: [id number]
--- NOTE | 2018-11-11 16:10 | ULT ---
BILATERAL LOWER EXTREMITY VENOUS DOPPLER ULTRASOUND: Date: 11/11/18 HISTORY: Recent brain surgery, bilateral lower extremity pain and edema. TECHNIQUE: Bueno scale ultrasound with color flow and spectral Doppler imaging of the deep venous systems of the lower extremities was performed bilaterally. FINDINGS: There is good flow, compression, and augmentation noted in the common femoral, femoral, deep femoral, popliteal, posterior tibial, and greater saphenous veins on either side. IMPRESSION: No evidence of deep venous thrombosis in either lower extremity. POS: [facility]
--- NOTE | 2018-11-11 16:17 | SPC ---
SONOGRAPHIC GUIDED LEFT UPPER EXTREMITY PICC PLACEMENT: Date: 11/11/18 HISTORY: Infection. Need for long-term antibiotics. FINDINGS: After explaining the procedure and answering all questions, the left upper extremity was prepped and draped in the usual sterile fashion. Sterile technique, buffered local anesthesia, sonographic guidan ce, and a 22 gauge needle were used to carefully access the left cephalic vein. Standard technique wa s then used to place the tip of a 5 Macedonian dual lumen PICC so that the tip lies at the level of the c avoatrial junction. The catheter was flushed and secured externally. The patient tolerated the proced ure well. IMPRESSION: Left upper extremity PICC is ready for use. POS: [facility]
[2018-11-11 16:41] LABS: Sodium 140 mmol/L (136-145)
[2018-11-11] MEDS: Morphine 4 MG/ML VIAL SLOW IVP PRN ×2 (20:33→23:19)
[2018-11-11] MEDS: Promethazine HCl 6.25 MG in Sodium Chloride 0.9% 50 ML IVPB PRN (21:00)
--- NOTE | 2018-11-11 22:42 | PDOC.PN ---
- Subjective Encounter Start Date: 11/11/18 Encounter Start Time: 13:00 Patient seen and examined for med mngt. No new complaints. No overnight events - Objective MAR Reviewed: Yes Vital Signs & Weight: Vital Signs (12 hours) Temp 11/11/18 20:00 99.1 F 11/11/18 15:00 98.4 F 11/11/18 13:00 98.5 F Weight Admit Weight 168 lb Weight 162 lb 14.4 oz Most Recent Monitor Data Heart Rate from ECG 69 NIBP 140/68 NIBP BP-Mean 92 Respiration from ECG 18 SpO2 97 I&O: 11/10/18 11/11/18 11/12/18 06:59 06:59 06:59 Intake Total 3606.9 2123 2608 Output Total 5960 6790 3830 Balance -2353.1 -247 -1222 Result Diagrams: 11/12/18 04:40 11/12/18 04:40 Additional Labs: Accuchecks 11/11/18 11/11/18 11/11/18 22:12 16:12 11:15 POC Glucose 106 113 H 111 H 11/11/18 11/10/18 11/10/18 05:07 12:53 08:48 POC Glucose 114 H 135 H 112 H EKG Reviewed by me: Yes (Tele SR) Phys Exam - Physical Examination Constitutional: NAD Respiratory: no wheezing, no rhonchi Cardiovascular: RRR, no rub Gastrointestinal: soft, non-tender, positive bowel sounds Musculoskeletal: no edema Dx/Plan - Plan plan discussed w/ family, DVT proph w/SCDs 1. 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 HTN emergency - Off Cardene drip 3. DM2 - on sliding scale 4. Hypokalemia 5. h/o HTN 6. CKD 2 PLAN: Cont sliding scale - ACHS Nimodipine Q6hr Cont IVF AM labs Not on antiplatelet agent due to SAH. Review of Systems - Review of Systems Respiratory: negative: Cough, Dry, Shortness of Breath, Hemoptysis, SOB with Excertion, Pleuritic Pain, Sputum, Wheezing Cardiovascular: negative: chest pain, palpitations, orthopnea, paroxysmal nocturnal dyspnea, edema, light headedness, other - Medications/Allergies Allergies/Adverse Reactions: Allergies Allergy/AdvReac Type Severity Reaction Status Date / Time No Known Allergies Allergy Verified 09/19/13 17:25 Medications: Current Medications Al Hydroxide/Mg Hydroxide (Maalox) 30 ml PO Q6H PRN PRN Reason: Indigestion Dextrose/Water (Dextrose 50%) 25 gm SLOW IVP PRN PRN PRN Reason: Hypoglycemia Diphenhydramine HCl (Benadryl) 50 mg PO Q6H PRN PRN Reason: Itching or Insomnia Docusate Sodium (Colace) 100 mg PO BIDPRN PRN PRN Reason: Constipation Famotidine (Pepcid) 20 mg SLOW IVP Q12HR [facility] Last Admin: 11/11/18 20:33 Dose: 20 mg Glucagon (Glucagon) 1 mg IM PRN PRN PRN Reason: Hypoglycemia Hydralazine HCl (Apresoline) 5 mg SLOW IVP Q15M PRN PRN Reason: SBP > 190 Potassium Chloride 40 meq/ (Sodium Chloride) 270 mls @ 135 mls/hr IVPB ASDIR PRN PRN Reason: FOR SERUM K+ 2.5 - 3.5 Last Admin: 11/09/18 16:25 Dose: 270 mls Potassium Chloride 40 meq/ (Device) 100 mls @ 50 mls/hr IVPB ASDIR PRN PRN Reason: FOR SERUM K+ 2.5 - 3.5 Magnesium Sulfate 1 gm/ Sodium (Chloride) 102 mls @ 102 mls/hr IV PRN PRN PRN Reason: MAG LEVEL 1.4 - 2.0 Last Admin: 11/09/18 16:25 Dose: 102 mls Magnesium Sulfate 2 gm/ Device 50 mls @ 50 mls/hr IVPB ASDIR PRN PRN Reason: MAGNESIUM < 1.4 Potassium Phosphate 9 mmol/ (Sodium Chloride) 103 mls @ 25.75 mls/hr IVPB ASDIR PRN PRN Reason: Phosphate 1.0-1.8 Potassium Phosphate 12 mmol/ (Sodium Chloride) 254 mls @ 63.5 mls/hr IV ASDIR PRN PRN Reason: Serum phosphate 0.5-0.9 Potassium Phosphate 15 mmol/ (Sodium Chloride) 255 mls @ 63.75 mls/hr IV ASDIR PRN PRN Reason: Serum Phos < 0.5 Dextrose/Water (D5w) 1,000 mls @ 0 mls/hr IV .Q0M PRN PRN Reason: Hypoglycemia Promethazine HCl 6.25 mg/ (Sodium Chloride) 50.25 mls @ 201 mls/hr IVPB Q6H PRN PRN Reason: Nausea Last Admin: 11/11/18 21:00 Dose: 50.25 mls Sodium Chloride (Normal Saline 0.9%) 1,000 mls @ 150 mls/hr IV .Q6H40M [facility] Last Admin: 11/11/18 17:03 Dose: 1,000 mls Cefazolin Sodium/Dextrose 2 gm (/ Device) 50 mls @ 100 mls/hr IVPB Q8HR [facility] Last Admin: 11/11/18 20:35 Dose: 50 mls Norepinephrine Bitartrate (Levophed) 250 mls @ 0 mls/hr IVPB INF [facility]; Protocol Insulin Human Lispro (Humalog) 0 units SC .MODERATE SLIDING SC PRN PRN Reason: Moderate Correctional Scale Last Admin: 11/10/18 16:17 Dose: 2 unit Labetalol HCl (Normodyne) 10 mg SLOW IVP Q15M PRN PRN Reason: SBP > 190 Magnesium Oxide (Magnesium Oxide) 400 mg PO BIDPRN PRN PRN Reason: FOR SERUM MAG 1.4 - 2.0 Magnesium Oxide (Magnesium Oxide) 800 mg PO PRN PRN PRN Reason: FOR SERUM MAG < 1.4 Miscellaneous Medication (Phos-Nak) 1 pkt PO TIDPRN PRN PRN Reason: FOR PHOS LEVEL 1.0 - 1.8 Miscellaneous Medication (Phos-Nak) 2 pkt PO TIDPRN PRN PRN Reason: FOR PHOS LEVEL 0.5 - 1.0 Morphine Sulfate (Morphine) 2 mg SLOW IVP Q1H PRN PRN Reason: Moderate Pain (4-6) Last Admin: 11/11/18 20:33 Dose: 2 mg Nimodipine (Nimodipine) 60 mg PO Q4HR [facility] Last Admin: 11/11/18 20:33 Dose: 60 mg Ccu Electrolyte (Replacement Protocol) 0 each FS PRN PRN PRN Reason: FOR ELECTROLYTE REPLACEMENT Ondansetron HCl (Zofran) 4 mg IVP Q6H PRN PRN Reason: Nausea/Vomiting Last Admin: 11/10/18 21:58 Dose: 4 mg Potassium Chloride (K-Dur) 40 meq PO ASDIR PRN PRN Reason: FOR SERUM K+ 2.5 - 3.5 Last Admin: 11/10/18 05:29 Dose: 40 meq Potassium Chloride (Klor-Con) 40 meq PER TUBE ASDIR PRN PRN Reason: FOR SERUM K+ 2.5-3.5 Promethazine HCl (Phenergan) 6.25 mg SLOW IVP Q6H PRN PRN Reason: Nausea/Vomiting Last Admin: 11/09/18 17:50 Dose: 6.25 mg Tramadol HCl (Ultram) 50 mg PO Q6H PRN PRN Reason: Pain Last Admin: 11/10/18 05:29 Dose: 50 mg
[2018-11-12] MEDS: niMODipine 30 MG CAP PO SCH ×6 (01:47→21:00)
[2018-11-12] MEDS: Sodium Chloride 0.9% 1,000 ML IV SCH ×4 (03:45→21:33)
[2018-11-12 04:56] LABS: #Basophils 0.1 thou/uL (0.0-0.2); #Lymphocytes 2.7 thou/uL (1.20-3.40); %Basophils 0.5 % (0.0-1.0); %Eosinophils 0.1 % (0.0-10.0); %Lymphocytes 21.2 % (21.0-51.0); %Monocytes 7.6 % (0.0-10.0); %Neutrophils 70.6 % (42.0-75.0); Hemoglobin 10.3 g/dL (12.0-16.0); Mean Corpuscular HGB CONC 33.6 g/dL (32.0-36.0); Mean Corpuscular Hemoglobin 30.8 pg (27.0-31.0); Mean Corpuscular Volume 91.7 fL (78.0-98.0); Mean Platelet Volume 6.8 fL (7.4-10.4); Platelet Count 241 thou/uL (130-400); RBC Distribution Width 11.6 % (11.5-14.5); Red Blood Cell (RBC) Count 3.35 mill/uL (4.20-5.40); White Blood Cell (WBC) Count 12.8 thou/uL (4.8-10.8)
[2018-11-12 05:18] LABS: Anion Gap 12 mmol/L (10-20); BUN (Urea Nitrogen) 8 mg/dL (9.8-20.1); Calc. Creatinine Clearance 134 mL/min (70-130); Calcium 7.9 mg/dL (7.8-10.44); Carbon Dioxide 25 mmol/L (22-29); Chloride 104 mmol/L (98-107); Estimated GFR-MDRD Greater than 90; Glucose 99 mg/dL (70-105); Magnesium 1.8 mg/dL (1.6-2.6); Phosphorus 2.6 mg/dL (2.3-4.7); Sodium 138 mmol/L (136-145)
[2018-11-12 05:22] LABS: Potassium 2.6 mmol/L (3.5-5.1)
[2018-11-12] MEDS: CEFAZOLIN 2 GM in Premix Bag 1 BAG IVPB SCH ×3 (06:07→21:33)
[2018-11-12] MEDS: Potassium Chloride 40 MEQ in Premix Bag 1 BAG IVPB PRN ×2 (06:10→19:03)
[2018-11-12] MEDS: traMADol HCl 50 MG TAB PO PRN ×2 (09:16→18:41)
[2018-11-12] MEDS: Famotidine/PF 20 mg/2ml Vial SLOW IVP SCH ×2 (09:17→21:34)
--- NOTE | 2018-11-12 10:05 | PRG ---
DATE OF SERVICE: 11/12/2018 SUBJECTIVE: The patient is doing okay. She still has a headache. OBJECTIVE: VITAL SIGNS: Temperature 99.2, pulse 73, blood pressure 134/59, O2 saturation 94%. HEENT: Unremarkable, except for the head dressing. NECK: No JVD. CHEST: Clear. CARDIAC: S1, S2. Regular. ABDOMEN: Soft. EXTREMITIES: No edema. LABORATORY DATA: White blood cell count 12.8, hematocrit 30.7, and platelet count 241. Sodium 138, potassium 2.6, chloride 104, CO2 of 25, BUN 8, creatinine 0.5, glucose 99. ASSESSMENT: 1. Status post aneurysmal bleed. 2. Status post aneurysmal clipping. 3. Hypokalemia. 4. Possible vasospasm. PLAN: 1. I will touch base with the neurosurgeons to see whether or not they want the Levophed drip on and what pressure they want the patient to be titrated to. 2. We need to replace her potassium and recheck it this afternoon. Job ID: [id number]
[2018-11-12] MEDS ORDERED: Potassium Chloride 40 MEQ in Premix Bag 1 BAG IVPB SCH (10:30)
--- NOTE | 2018-11-12 11:33 | PRG ---
DATE OF SERVICE: 11/12/2018 Ms. 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 She is Tajik-speaking only, but this morning, she is able to speak appropriately. She is alert. She follows commands in a nonfocal way in all four extremities. She remains on nimodipine 60 mg every 4 hours and we are using pressors to try and drive her blood pressure over 140 systolic, given her risk of vasospasm. She is on normal saline at 150 mL/h, and her fluid balance has been essentially slightly negative. Ultrasound of lower extremities was negative for DVT yesterday. I would be fine with beginning to mobilize her and we have consulted Rehab. The pressor support is only if she is not able to maintain adequate perfusion. She has a KENDELL drain in place and Ancef as well. KENDELL is in the subgaleal space and may be removed perhaps sometime this weekend as the drain output is decreasing. Job ID: [id number]
[2018-11-12] MEDS: Morphine 4 MG/ML VIAL SLOW IVP PRN ×2 (13:00→21:34)
[2018-11-12 17:40] LABS: Potassium 3.1 mmol/L (3.5-5.1)
[2018-11-12] MEDS: Norepinephrine 8 MG/250 ML IVPB SCH (21:36)
[2018-11-13] MEDS: Sodium Chloride 0.9% 1,000 ML IV SCH ×3 (00:17→16:20)
[2018-11-13] MEDS: niMODipine 30 MG CAP PO SCH ×6 (00:18→21:08)
[2018-11-13 04:50] LABS: Anion Gap 14 mmol/L (10-20); BUN (Urea Nitrogen) 6 mg/dL (9.8-20.1); Calc. Creatinine Clearance 117 mL/min (70-130); Calcium 8.1 mg/dL (7.8-10.44); Carbon Dioxide 23 mmol/L (22-29); Chloride 103 mmol/L (98-107); Estimated GFR-MDRD Greater than 90; Glucose 131 mg/dL (70-105); Potassium 3.3 mmol/L (3.5-5.1); Sodium 137 mmol/L (136-145)
[2018-11-13] MEDS: CEFAZOLIN 2 GM in Premix Bag 1 BAG IVPB SCH ×3 (05:25→21:09)
[2018-11-13] MEDS: Potassium Chloride 40 MEQ in Premix Bag 1 BAG IVPB PRN (06:30)
[2018-11-13] MEDS: Famotidine/PF 20 mg/2ml Vial SLOW IVP SCH ×2 (08:36→21:10)
[2018-11-13] MEDS: traMADol HCl 50 MG TAB PO PRN ×3 (08:41→19:19)
[2018-11-13] MEDS: HumaLOG 300 UNITS/3 ML VIAL SC PRN ×2 (10:51→17:04)
[2018-11-13] MEDS: Morphine 4 MG/ML VIAL SLOW IVP PRN ×4 (10:52→19:12)
--- NOTE | 2018-11-13 11:08 | PRG ---
DATE OF SERVICE: 11/13/2018 SUBJECTIVE: Ms. Mota is actually doing fairly well. She has a mild headache, but says overall that has improved. She is on a Levophed drip because of a labile blood pressure; however, she has had no real symptoms of vasospasm. OBJECTIVE: VITAL SIGNS: Temperature is 99.0, pulse 69, blood pressure 135/61, O2 saturation 99%. HEENT: Unremarkable except for the dressing in place. NECK: No JVD. CHEST: Clear to auscultation. CARDIAC: S1 and S2 regular. ABDOMEN: Soft. EXTREMITIES: No edema. LABORATORY DATA: Sodium 137, potassium 3.3, BUN 6, creatinine 0.5, glucose 131. ASSESSMENT: 1. Status post craniotomy for aneurysmal clipping. 2. 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 3. Hypokalemia. PLAN: 1. Additional dose of potassium this afternoon. 2. Continue Levophed to maintain adequate blood pressure. 3. Continue CCU care at this time. Job ID: [id number]
--- NOTE | 2018-11-13 12:23 | PRG ---
DATE OF SERVICE: 11/13/2018 SUBJECTIVE: Ms. Mota has subarachnoid hemorrhage day #3, post clipping day #2 for aneurysmal subarachnoid hemorrhage from ruptured left PCOM and left MCA aneurysm. The stoma is doing relatively well. She is speaking in Ukrainian to her family. She makes perfect sense. She has good memory. They report that she is doing well and just complaining of head pain. OBJECTIVE: VITAL SIGNS: T-max was 100.1 degrees Fahrenheit. Her other vital signs have been stable. Dr. Cifuentes's goal systolic blood pressures have been 140s to 180s prophylactically to prevent symptomatic vasospasm. We will continue that protocol. In my examination, Ms. Mota has no lateralized motor or sensory deficits. Her cranial nerves are intact. Her speech is fluent. LABORATORY DATA: Sodium is 137 this morning. Her white blood cell count is 12.8. Going forward, we will check her sodium twice a day, first with the morning labs and then and one in the afternoon. We will continue to check a CBC. We will monitor blood pressure. IV fluids are running at 150 mL an hour and I think keeping her pressures in the 140s to 180s seems reasonable. If there is any hint of neurological decline, we will get a CT angiogram looking for vasospasm. A 1.5 normal saline can be begun, if she develops any hyponatremia. Job ID: [id number]
[2018-11-13] MEDS: Potassium Chloride 20 MEQ TAB PO SCH (14:43)
[2018-11-13] MEDS: Norepinephrine 8 MG/250 ML IVPB SCH (14:45)
[2018-11-13 19:27] LABS: Sodium 134 mmol/L (136-145)
--- NOTE | 2018-11-13 21:14 | PDOC.PN ---
- Subjective Encounter Start Date: 11/13/18 Encounter Start Time: 12:30 Patient seen and examined for med mngt. No new complaints. No overnight events - Objective MAR Reviewed: Yes Vital Signs & Weight: Vital Signs (12 hours) Temp 11/13/18 20:00 100.8 F H 11/13/18 16:00 98.6 F 11/13/18 12:00 98.4 F Weight Admit Weight 168 lb Weight 151 lb 10.848 oz Most Recent Monitor Data Heart Rate from ECG 70 NIBP 165/72 NIBP BP-Mean 103 Respiration from ECG 20 SpO2 95 I&O: 11/12/18 11/13/18 11/14/18 06:59 06:59 06:59 Intake Total 4640 5470.1 2313 Output Total 5105 4565 2505 Balance -465 905.1 -192 Result Diagrams: 11/12/18 04:40 11/13/18 19:09 Additional Labs: Accuchecks 11/13/18 11/13/18 11/13/18 17:04 10:45 05:33 POC Glucose 163 H 163 H 117 H Phys Exam - Physical Examination Constitutional: NAD Respiratory: no wheezing, no rhonchi Cardiovascular: RRR, no rub Gastrointestinal: soft, non-tender, positive bowel sounds Musculoskeletal: no edema Dx/Plan - Plan DVT proph w/SCDs 1. 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 HTN emergency - Off Cardene drip 3. DM2 - on sliding scale 4. Hypokalemia 5. h/o HTN 6. CKD 2 PLAN: Cont sliding scale - ACHS Nimodipine Q6hr per NSG Cont IVF AM labs Not on antiplatelet agent due to SAH. Review of Systems - Review of Systems Cardiovascular: negative: chest pain, palpitations, orthopnea, paroxysmal nocturnal dyspnea, edema, light headedness, other Gastrointestinal: negative: Nausea, Vomiting, Abdominal Pain, Diarrhea, Constipation, Melena, Hematochezia, Other - Medications/Allergies Allergies/Adverse Reactions: Allergies Allergy/AdvReac Type Severity Reaction Status Date / Time No Known Allergies Allergy Verified 09/19/13 17:25 Medications: Current Medications Al Hydroxide/Mg Hydroxide (Maalox) 30 ml PO Q6H PRN PRN Reason: Indigestion Dextrose/Water (Dextrose 50%) 25 gm SLOW IVP PRN PRN PRN Reason: Hypoglycemia Diphenhydramine HCl (Benadryl) 50 mg PO Q6H PRN PRN Reason: Itching or Insomnia Docusate Sodium (Colace) 100 mg PO BIDPRN PRN PRN Reason: Constipation Famotidine (Pepcid) 20 mg SLOW IVP Q12HR [facility] Last Admin: 11/13/18 21:10 Dose: 20 mg Glucagon (Glucagon) 1 mg IM PRN PRN PRN Reason: Hypoglycemia Hydralazine HCl (Apresoline) 5 mg SLOW IVP Q15M PRN PRN Reason: SBP > 190 Potassium Chloride 40 meq/ (Sodium Chloride) 270 mls @ 135 mls/hr IVPB ASDIR PRN PRN Reason: FOR SERUM K+ 2.5 - 3.5 Last Admin: 11/09/18 16:25 Dose: 270 mls Potassium Chloride 40 meq/ (Device) 100 mls @ 50 mls/hr IVPB ASDIR PRN PRN Reason: FOR SERUM K+ 2.5 - 3.5 Last Admin: 11/13/18 06:30 Dose: 100 mls Magnesium Sulfate 1 gm/ Sodium (Chloride) 102 mls @ 102 mls/hr IV PRN PRN PRN Reason: MAG LEVEL 1.4 - 2.0 Last Admin: 11/09/18 16:25 Dose: 102 mls Magnesium Sulfate 2 gm/ Device 50 mls @ 50 mls/hr IVPB ASDIR PRN PRN Reason: MAGNESIUM < 1.4 Potassium Phosphate 9 mmol/ (Sodium Chloride) 103 mls @ 25.75 mls/hr IVPB ASDIR PRN PRN Reason: Phosphate 1.0-1.8 Potassium Phosphate 12 mmol/ (Sodium Chloride) 254 mls @ 63.5 mls/hr IV ASDIR PRN PRN Reason: Serum phosphate 0.5-0.9 Potassium Phosphate 15 mmol/ (Sodium Chloride) 255 mls @ 63.75 mls/hr IV ASDIR PRN PRN Reason: Serum Phos < 0.5 Dextrose/Water (D5w) 1,000 mls @ 0 mls/hr IV .Q0M PRN PRN Reason: Hypoglycemia Promethazine HCl 6.25 mg/ (Sodium Chloride) 50.25 mls @ 201 mls/hr IVPB Q6H PRN PRN Reason: Nausea Last Admin: 11/11/18 21:00 Dose: 50.25 mls Sodium Chloride (Normal Saline 0.9%) 1,000 mls @ 150 mls/hr IV .Q6H40M [facility] Last Admin: 11/13/18 16:20 Dose: 1,000 mls Cefazolin Sodium/Dextrose 2 gm (/ Device) 50 mls @ 100 mls/hr IVPB Q8HR [facility] Last Admin: 11/13/18 21:09 Dose: 50 mls Norepinephrine Bitartrate (Levophed) 250 mls @ 0 mls/hr IVPB INF [facility]; Protocol Last Admin: 11/13/18 14:45 Dose: 250 mls Insulin Human Lispro (Humalog) 0 units SC .MODERATE SLIDING SC PRN PRN Reason: Moderate Correctional Scale Last Admin: 11/13/18 17:04 Dose: 2 unit Labetalol HCl (Normodyne) 10 mg SLOW IVP Q15M PRN PRN Reason: SBP > 190 Magnesium Oxide (Magnesium Oxide) 400 mg PO BIDPRN PRN PRN Reason: FOR SERUM MAG 1.4 - 2.0 Magnesium Oxide (Magnesium Oxide) 800 mg PO PRN PRN PRN Reason: FOR SERUM MAG < 1.4 Miscellaneous Medication (Phos-Nak) 1 pkt PO TIDPRN PRN PRN Reason: FOR PHOS LEVEL 1.0 - 1.8 Miscellaneous Medication (Phos-Nak) 2 pkt PO TIDPRN PRN PRN Reason: FOR PHOS LEVEL 0.5 - 1.0 Morphine Sulfate (Morphine) 2 mg SLOW IVP Q1H PRN PRN Reason: Moderate Pain (4-6) Last Admin: 11/13/18 19:12 Dose: 2 mg Nimodipine (Nimodipine) 60 mg PO Q4HR [facility] Last Admin: 11/13/18 21:08 Dose: 60 mg Ccu Electrolyte (Replacement Protocol) 0 each FS PRN PRN PRN Reason: FOR ELECTROLYTE REPLACEMENT Ondansetron HCl (Zofran) 4 mg IVP Q6H PRN PRN Reason: Nausea/Vomiting Last Admin: 11/10/18 21:58 Dose: 4 mg Potassium Chloride (K-Dur) 40 meq PO ASDIR PRN PRN Reason: FOR SERUM K+ 2.5 - 3.5 Last Admin: 11/10/18 05:29 Dose: 40 meq Potassium Chloride (Klor-Con) 40 meq PER TUBE ASDIR PRN PRN Reason: FOR SERUM K+ 2.5-3.5 Potassium Chloride (K-Dur) 40 meq PO 1500 [facility] Stop: 11/14/18 17:00 Last Admin: 11/13/18 14:43 Dose: 40 meq Promethazine HCl (Phenergan) 6.25 mg SLOW IVP Q6H PRN PRN Reason: Nausea/Vomiting Last Admin: 11/09/18 17:50 Dose: 6.25 mg Tramadol HCl (Ultram) 50 mg PO Q6H PRN PRN Reason: Pain Last Admin: 11/13/18 19:19 Dose: 50 mg
[2018-11-14] MEDS: Sodium Chloride 0.9% 1,000 ML IV SCH ×2 (00:04→05:47)
[2018-11-14] MEDS: niMODipine 30 MG CAP PO SCH ×6 (00:04→21:02)
[2018-11-14] MEDS: Norepinephrine 8 MG/250 ML IVPB SCH ×3 (03:14→23:46)
[2018-11-14] MEDS: Morphine 4 MG/ML VIAL SLOW IVP PRN ×2 (03:18→16:49)
[2018-11-14] MEDS: CEFAZOLIN 2 GM in Premix Bag 1 BAG IVPB SCH (05:51)
[2018-11-14 05:56] LABS: Anion Gap 12 mmol/L (10-20); BUN (Urea Nitrogen) 5 mg/dL (9.8-20.1); Calc. Creatinine Clearance 135 mL/min (70-130); Calcium 8.1 mg/dL (7.8-10.44); Carbon Dioxide 23 mmol/L (22-29); Chloride 101 mmol/L (98-107); Estimated GFR-MDRD Greater than 90; Glucose 140 mg/dL (70-105); Potassium 3.2 mmol/L (3.5-5.1); Sodium 133 mmol/L (136-145)
[2018-11-14] MEDS ORDERED: SODIUM CHLORIDE IV SCH (07:15)
[2018-11-14] MEDS ORDERED: STERILE WATER IV SCH (07:15)
[2018-11-14] MEDS: Famotidine/PF 20 mg/2ml Vial SLOW IVP SCH ×2 (07:38→21:02)
[2018-11-14] MEDS: Potassium Chloride 20 MEQ TAB PO PRN (08:22)
--- NOTE | 2018-11-14 10:42 | PRG ---
DATE OF SERVICE: 11/14/2018 SUBJECTIVE: The patient is awake and alert, has no complaints. OBJECTIVE: VITAL SIGNS: On exam; temperature 99.7, pulse 72, blood pressure 147/60, and O2 saturation 97%. Currently on a Levophed drip at 10 mcg/minute. HEENT: She has a bandage in place. NECK: No JVD. CHEST: Clear. CARDIAC: S1 and S2. Regular. ABDOMEN: Soft. EXTREMITIES: No edema. LABORATORY DATA: Sodium 133, potassium 3.2, chloride 101, CO2 of 23, BUN 5, creatinine 0.5, and glucose 140. ASSESSMENT: 1. Salt wasting nephropathy. 2. Status post aneurysmal clipping. 3. Receiving empiric treatment for vasospasm with Levophed. PLAN: 1. She has been switched to 1.5% normal saline by the Neurosurgery Service and they are monitoring her sodium level. 2. Potassium supplementation. 3. Continue Levophed. Job ID: [id number]
[2018-11-14 11:38] LABS: Bilirubin Negative (Negative); Blood, Urine Small (Negative); Clarity CLEAR (Clear); Glucose, Urine (Dipstick) 250 mg/dL (Negative); Leukocyte Negative (Negative); Nitrite Negative (Negative); Protein, Urine (Dipstick) Negative (Neg-Trace); Specific Gravity, Urine 1.008 (1.002-1.036); pH, Urine 6.5 (5.0-9.0)
[2018-11-14 11:40] LABS: Bacteria/HPF None Seen HPF (None Seen); Hyaline Casts/LPF 0-3 HYALINE CAST LPF (0-3 Hyaline); Squamous Epithelial None Seen HPF (0-3); WBC/HPF None Seen HPF (0-3)
--- NOTE | 2018-11-14 11:45 | PRG ---
DATE OF SERVICE: 11/14/2018 I saw Ms. Mota. She is on subarachnoid hemorrhage day 4, post clipping day 3 from aneurysmal subarachnoid hemorrhage. She has been changed from normal saline to 1.5 normal saline. We are attempting to keep blood pressures in the 140s to 180s in anticipation of trouble vasospasm. Overnight, her family tells me that she is a little confused. When she speaks, all the words are appropriate, she makes sense, she responds to questions. However, at some point, the phrases do not seem to make sense. She once told her family that the pillows need to be put in front of the fireplace, and there is obviously no fireplace in the room. Her vital signs have been relatively stable. Her sodium is drifting down, however. On exam, she has no focal motor or sensory deficits. She has mild confusion. I will order a CT angiogram of the brain for the morning. This is to assess the caliber of the cerebral arteries. I will not make change to the blood pressure parameters, but I will increase to 1.5 normal saline. We ensured she is off her D5. If the sodium continues to drift down, we can even increase the rate of her 1.5 normal saline which we moved up to 150 mL an hour this morning and it could be moved up to 175 later if necessary. We will start needing pressors and increase her goal blood pressure significantly, then we will enlist the support of her Critical Care colleagues. For now, we will attempt to treat her with IV changes alone. Job ID: [id number]
[2018-11-14] MEDS: STERILE WATER IV SCH ×3 (12:17→21:01)
[2018-11-14] MEDS: traMADol HCl 50 MG TAB PO PRN ×2 (12:17→21:09)
[2018-11-14] MEDS: SODIUM CHLORIDE IV SCH ×3 (12:17→21:01)
[2018-11-14] MEDS: HumaLOG 300 UNITS/3 ML VIAL SC PRN ×2 (12:20→16:51)
[2018-11-14 14:01] LABS: Sodium 134 mmol/L (136-145)
[2018-11-14] MEDS ORDERED: Acetaminophen 650 MG Suppository PR PRN (14:45)
--- NOTE | 2018-11-14 15:34 | CT ---
CT BRAIN: DATE: 11/14/2018. PROVIDED CLINICAL HISTORY: Change in mental status, confusion. FINDINGS: Comparison is made with the study dated 11/11/2018. Postoperative changes of the left MCA aneurysm cl ipping are redemonstrated. There is diminished attenuation within the adjacent left frontal lobe. I nterval decrease in degree of pneumocephalus. Scattered subarachnoid hemorrhage is again noted, appe aring probably slightly less than on prior. There is no significant shift of the midline structures. The visualized portions of the basilar cistern is not obscured by susceptibility artifact appear pa tent. The extracranial soft tissues and osseous structures demonstrate no significant interval burroughs e. IMPRESSION: 1. Interval improvement in pneumocephalus and stable to slightly less conspicuous scattered subarach noid hemorrhage. 2. Diminished attenuation within the posterior left frontal region adjacent to the aneurysm clips wh ich may reflect edema or infarct. POS: [facility]
--- NOTE | 2018-11-14 15:35 | RAD ---
PORTABLE CHEST: 11/14/2018 PROVIDED CLINICAL HISTORY: Fever. COMPARISON: None. FINDINGS: The cardiac silhouette appears enlarged, which may be at least partially on the basis of the portable technique. No focal consolidation, pleural fluid, or pneumothorax apparent. A left upper extremity PICC line is noted, overlying the expected location of the right atrium. IMPRESSION: No evidence for an acute cardiopulmonary process. POS: [facility]
[2018-11-14] MEDS: Acetaminophen 325 MG TAB PO PRN (15:52)
[2018-11-14] MEDS: Potassium Chloride 20 MEQ TAB PO SCH (15:53)
--- NOTE | 2018-11-14 16:07 | ULT ---
BILATERAL LOWER EXTREMITY VENOUS DOPPLER ULTRASOUND: 11/14/2018 HISTORY: Recent brain surgery. Immobility. Assess for DVT. COMPARISON: None. TECHNIQUE: Multiplanar whitney-scale sonographic imaging of the venous structures of the bilateral lower extremitie s obtained with color-flow and spectral analysis. FINDINGS: Bilateral greater saphenous veins, common femoral veins, profunda femoral veins, femoral veins, popli teal veins, and posterior tibial veins are patent. Normal blood flow, augmentation, and compression within the deep venous system bilaterally. No evidence for DVT on either side. IMPRESSION: No evidence for deep venous thrombosis of either lower extremity. POS: [facility]
[2018-11-14 16:53] LABS: Sodium 132 mmol/L (136-145)
[2018-11-14] MEDS ORDERED: [UNRECOGNIZED DRUG - REMARK] FS SCH (17:45)
[2018-11-14 18:21] LABS: Sodium 134 mmol/L (136-145)
--- NOTE | 2018-11-14 23:08 | PDOC.PN ---
- Subjective Encounter Start Date: 11/14/18 Encounter Start Time: 11:30 Patient seen and examined for med mngt. Mild gen headache. No new focal deficits. No new complaints. No overnight events - Objective MAR Reviewed: Yes Vital Signs & Weight: Vital Signs (12 hours) Temp Pulse Pulse BP BP Pulse Ox Pulse Ox 11/14/18 20:00 98.2 F 98 11/14/18 17:00 100.5 F H 11/14/18 14:04 75 80 146/61 H 141/63 H 97 11/14/18 14:00 101.0 F H 11/14/18 12:00 99.6 F Pulse Ox 11/14/18 20:00 11/14/18 17:00 11/14/18 14:04 98 11/14/18 14:00 11/14/18 12:00 Weight Admit Weight 168 lb Weight 160 lb 14.999 oz Most Recent Monitor Data Heart Rate from ECG 76 NIBP 148/62 NIBP BP-Mean 90 Respiration from ECG 17 SpO2 97 I&O: 11/13/18 11/14/18 11/15/18 06:59 06:59 06:59 Intake Total 5470.1 5607 2303 Output Total 4565 4490 3635 Balance 905.1 1117 -0262 Result Diagrams: 11/12/18 04:40 11/14/18 18:07 Additional Labs: Accuchecks 11/14/18 11/14/18 11/14/18 21:16 16:48 12:13 POC Glucose 160 H 173 H 179 H EKG Reviewed by me: Yes (Tele SR) Phys Exam - Physical Examination Constitutional: NAD Respiratory: no wheezing, no rhonchi Cardiovascular: RRR, no rub Gastrointestinal: soft, non-tender, positive bowel sounds Musculoskeletal: no edema Neurological: moves all 4 limbs Dx/Plan - Plan DVT proph w/SCDs 1. SAH due to aneurysmal rupture - Mngt per NSG, On Leveophed to maintain SBP > 140, On Nimodipine 2. HTN emergency requiring Cardene drip on admission 3. DM2 - on sliding scale 4. Fever 5. h/o HTN 6. CKD 2 7. Hypokalemia PLAN: CXR UA Blood culture Cont sliding scale - ACHS Cont IVF AM labs Not on antiplatelet agent due to SAH. Review of Systems - Review of Systems Respiratory: negative: Cough, Dry, Shortness of Breath, Hemoptysis, SOB with Excertion, Pleuritic Pain, Sputum, Wheezing Cardiovascular: negative: chest pain, palpitations, orthopnea, paroxysmal nocturnal dyspnea, edema, light headedness, other - Medications/Allergies Allergies/Adverse Reactions: Allergies Allergy/AdvReac Type Severity Reaction Status Date / Time No Known Allergies Allergy Verified 09/19/13 17:25 Medications: Current Medications Acetaminophen (Tylenol) 650 mg PO Q4H PRN PRN Reason: Headache/Fever or Mild Pain Last Admin: 11/14/18 15:52 Dose: 650 mg Acetaminophen (Tylenol) 650 mg AK Q4H PRN PRN Reason: Headache/Fever or Pain Al Hydroxide/Mg Hydroxide (Maalox) 30 ml PO Q6H PRN PRN Reason: Indigestion Diphenhydramine HCl (Benadryl) 50 mg PO Q6H PRN PRN Reason: Itching or Insomnia Docusate Sodium (Colace) 100 mg PO BIDPRN PRN PRN Reason: Constipation Famotidine (Pepcid) 20 mg SLOW IVP Q12HR ARIEL Last Admin: 11/14/18 21:02 Dose: 20 mg Glucagon (Glucagon) 1 mg IM PRN PRN PRN Reason: Hypoglycemia Hydralazine HCl (Apresoline) 5 mg SLOW IVP Q15M PRN PRN Reason: SBP > 190 Potassium Chloride 40 meq/ (Sodium Chloride) 270 mls @ 135 mls/hr IVPB ASDIR PRN PRN Reason: FOR SERUM K+ 2.5 - 3.5 Last Admin: 11/09/18 16:25 Dose: 270 mls Potassium Chloride 40 meq/ (Device) 100 mls @ 50 mls/hr IVPB ASDIR PRN PRN Reason: FOR SERUM K+ 2.5 - 3.5 Last Admin: 11/13/18 06:30 Dose: 100 mls Magnesium Sulfate 1 gm/ Sodium (Chloride) 102 mls @ 102 mls/hr IV PRN PRN PRN Reason: MAG LEVEL 1.4 - 2.0 Last Admin: 11/09/18 16:25 Dose: 102 mls Magnesium Sulfate 2 gm/ Device 50 mls @ 50 mls/hr IVPB ASDIR PRN PRN Reason: MAGNESIUM < 1.4 Potassium Phosphate 9 mmol/ (Sodium Chloride) 103 mls @ 25.75 mls/hr IVPB ASDIR PRN PRN Reason: Phosphate 1.0-1.8 Potassium Phosphate 12 mmol/ (Sodium Chloride) 254 mls @ 63.5 mls/hr IV ASDIR PRN PRN Reason: Serum phosphate 0.5-0.9 Potassium Phosphate 15 mmol/ (Sodium Chloride) 255 mls @ 63.75 mls/hr IV ASDIR PRN PRN Reason: Serum Phos < 0.5 Promethazine HCl 6.25 mg/ (Sodium Chloride) 50.25 mls @ 201 mls/hr IVPB Q6H PRN PRN Reason: Nausea Last Admin: 11/11/18 21:00 Dose: 50.25 mls Norepinephrine Bitartrate (Levophed) 250 mls @ 0 mls/hr IVPB INF ARIEL; Protocol Last Admin: 11/14/18 16:51 Dose: 250 mls Sodium Chloride 256.66 meq/ (Sterile Water) 1,064.165 mls @ 175 mls/hr IV .Q6H5M ARIEL Last Admin: 11/14/18 21:01 Dose: 1,064.165 mls Insulin Human Lispro (Humalog) 0 units SC .MODERATE SLIDING SC PRN PRN Reason: Moderate Correctional Scale Last Admin: 11/14/18 16:51 Dose: 2 unit Labetalol HCl (Normodyne) 10 mg SLOW IVP Q15M PRN PRN Reason: SBP > 190 Magnesium Oxide (Magnesium Oxide) 400 mg PO BIDPRN PRN PRN Reason: FOR SERUM MAG 1.4 - 2.0 Magnesium Oxide (Magnesium Oxide) 800 mg PO PRN PRN PRN Reason: FOR SERUM MAG < 1.4 Miscellaneous Medication (Phos-Nak) 1 pkt PO TIDPRN PRN PRN Reason: FOR PHOS LEVEL 1.0 - 1.8 Miscellaneous Medication (Phos-Nak) 2 pkt PO TIDPRN PRN PRN Reason: FOR PHOS LEVEL 0.5 - 1.0 Morphine Sulfate (Morphine) 2 mg SLOW IVP Q1H PRN PRN Reason: Moderate Pain (4-6) Last Admin: 11/14/18 16:49 Dose: 2 mg Nimodipine (Nimodipine) 60 mg PO Q4HR ARIEL Last Admin: 11/14/18 21:02 Dose: 60 mg Ccu Electrolyte (Replacement Protocol) 0 each FS PRN PRN PRN Reason: FOR ELECTROLYTE REPLACEMENT No Hypotonic Solns 0 each FS .NO HYPOTONIC SOLNS ARIEL Ondansetron HCl (Zofran) 4 mg IVP Q6H PRN PRN Reason: Nausea/Vomiting Last Admin: 11/10/18 21:58 Dose: 4 mg Potassium Chloride (K-Dur) 40 meq PO ASDIR PRN PRN Reason: FOR SERUM K+ 2.5 - 3.5 Last Admin: 11/14/18 08:22 Dose: 40 meq Potassium Chloride (Klor-Con) 40 meq PER TUBE ASDIR PRN PRN Reason: FOR SERUM K+ 2.5-3.5 Promethazine HCl (Phenergan) 6.25 mg SLOW IVP Q6H PRN PRN Reason: Nausea/Vomiting Last Admin: 11/09/18 17:50 Dose: 6.25 mg Tramadol HCl (Ultram) 50 mg PO Q6H PRN PRN Reason: Pain Last Admin: 11/14/18 21:09 Dose: 50 mg
[2018-11-15] MEDS: niMODipine 30 MG CAP PO SCH ×6 (01:34→19:47)
[2018-11-15] MEDS: traMADol HCl 50 MG TAB PO PRN (03:16)
[2018-11-15 03:45] LABS: #Basophils 0.1 thou/uL (0.0-0.2); #Lymphocytes 1.5 thou/uL (1.20-3.40); #Monocytes 0.8 thou/uL (0.11-0.59); #Neutrophils 10.8 thou/uL (1.40-6.50); %Basophils 0.4 % (0.0-1.0); %Eosinophils 0.3 % (0.0-10.0); %Lymphocytes 11.5 % (21.0-51.0); %Monocytes 6.1 % (0.0-10.0); %Neutrophils 81.8 % (42.0-75.0); Hemoglobin 10.5 g/dL (12.0-16.0); Mean Corpuscular HGB CONC 33.7 g/dL (32.0-36.0); Mean Corpuscular Hemoglobin 30.9 pg (27.0-31.0); Mean Corpuscular Volume 91.5 fL (78.0-98.0); Mean Platelet Volume 6.6 fL (7.4-10.4); Platelet Count 324 thou/uL (130-400); RBC Distribution Width 12.2 % (11.5-14.5); Red Blood Cell (RBC) Count 3.41 mill/uL (4.20-5.40); White Blood Cell (WBC) Count 13.2 thou/uL (4.8-10.8)
[2018-11-15 04:04] LABS: Anion Gap 13 mmol/L (10-20); BUN (Urea Nitrogen) 5 mg/dL (9.8-20.1); Calc. Creatinine Clearance 147 mL/min (70-130); Calcium 8.3 mg/dL (7.8-10.44); Carbon Dioxide 22 mmol/L (22-29); Chloride 104 mmol/L (98-107); Estimated GFR-MDRD Greater than 90; Glucose 181 mg/dL (70-105); Magnesium 1.7 mg/dL (1.6-2.6); Potassium 3.4 mmol/L (3.5-5.1); Sodium 136 mmol/L (136-145)
[2018-11-15] MEDS: HumaLOG 300 UNITS/3 ML VIAL SC PRN ×4 (06:34→20:13)
[2018-11-15] MEDS: Norepinephrine 8 MG/250 ML IVPB SCH ×3 (06:47→19:47)
[2018-11-15] MEDS: Potassium Chloride 20 MEQ TAB PO PRN (07:01)
[2018-11-15] MEDS: Acetaminophen 325 MG TAB PO PRN ×3 (07:01→21:33)
--- NOTE | 2018-11-15 08:10 | CT ---
CTA OF THE HEAD WITH AND WITHOUT CONTRAST UTILIZING 3D REFORMATTED IMAGING: INDICATION: Followup subarachnoid hemorrhage and evaluate for vasospasm. COMPARISON: Noncontrast CT of the brain dated 11/14/[address] of the head dated 11/08/2018. FINDINGS: The area of subcortical hypodensity involving the anterior convexity of the left frontal lobe is stab le possibly reflecting edema or infarct. Area of edema or infarct involving the anterior left insula r cortex is stable. Four separate aneurysm clips involving the left MCA trifurcation and left caroti d terminus are stable. There is not apparent flow seen within the previously demonstrated aneurysm t o the left carotid terminus or left MCA trifurcation. Beam scattered artifact slightly limits evalua te ion of the M1 and M2 segments of the left MCA; however, there is opacification seen within the MCA branches overlying the left convexity. No additional hemodynamically significant stenosis, occlusio n, or aneurysmal formation evident. The right vertebral artery terminates as PICA. The left vertebr al artery is dominant. There is slightly less subarachnoid hemorrhage seen within the sulci overlyin g the convexities bilaterally. There is improvement in the extent of the pneumocephalus overlying th e left frontal convexity. Left frontotemporal craniotomy site is unchanged. IMPRESSION: 1. Improvement in the extent of the subarachnoid hemorrhage overlying the sulci of both cerebral hem ispheres. Improvement in pneumocephalus overlying the left frontal convexity. 2. Opacification of the left middle cerebral artery branches distal to the aneurysm clips. Beam sca ttered artifact limits evaluation of the M1 and M2 segments of the left middle cerebral artery and le ft carotid terminus. There is no visible opacification of the previously demonstrated aneurysms of t he left carotid terminus and left middle cerebral artery bifurcation. 3. No midline shift or hydrocephalus is demonstrated. 4. Small air fluid level within the right and left maxillary sinuses. POS: [facility]
[2018-11-15] MEDS ORDERED: VANCOMYCIN IVPB PRN (08:30)
--- NOTE | 2018-11-15 08:56 | PRG ---
DATE OF SERVICE: 11/15/2018 SUBJECTIVE: Ms. Mota began having altered mental status yesterday and suspected that she could be having cerebral vasospasm; however, around the same time, she began spiking some fever. She is currently not on any antibiotics, although she was on Ancef for prophylactic coverage prior to yesterday. OBJECTIVE: VITAL SIGNS: Temperature 100.9, pulse 76, blood pressure 151/72, O2 saturation 95%. 24-hour intake 4717, output 6710. HEENT: Unremarkable. NECK: No JVD. LUNGS: Clear to auscultation. CARDIAC: S1 and S2 regular. ABDOMEN: Soft. EXTREMITIES: No edema. NEUROLOGICAL: She is not alert or oriented. LABORATORY DATA: White blood cell count 13.2, hematocrit 31.2, and platelet count 324 with 81% neutrophils. Sodium 136, potassium 3.4, chloride 104, CO2 of 22, BUN 5, creatinine 0.5, glucose 181. Urinalysis from yesterday did not show any white blood cells. ASSESSMENT: 1. Altered mental status-vasospasm versus meningitis/encephalitis. 2. Status post aneurysmal clipping. 3. Status post subarachnoid hemorrhage. PLAN: 1. I will go ahead and re-culture and start broad-spectrum IV antibiotics include cefepime and vancomycin. 2. Continue Levophed as needed for her blood pressure. 3. Keep in CCU. Job ID: [id number]
[2018-11-15] MEDS: Famotidine/PF 20 mg/2ml Vial SLOW IVP SCH ×2 (09:17→19:48)
[2018-11-15] MEDS: Cefepime 1 GM in Sodium Chloride 0.9% 100 ML IVPB SCH ×2 (09:17→19:47)
[2018-11-15] MEDS: STERILE WATER IV SCH ×3 (09:20→19:46)
[2018-11-15] MEDS: SODIUM CHLORIDE IV SCH ×3 (09:20→19:46)
[2018-11-15] MEDS: Vancomycin HCl 1.5 GM in Sodium Chloride 0.9% 250 ML 300 ML IVPB SCH ×2 (09:25→21:29)
--- NOTE | 2018-11-15 09:36 | PRG ---
DATE OF SERVICE: 11/15/2018 SUBJECTIVE: Ms. 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 CT angiogram this morning demonstrates no obvious concerning vasospasm. The left frontal hypodensity in my opinion is simply edema from exposure of the aneurysm. We performed subfrontal transsylvian approach. This morning, she does tell us good morning, but otherwise is drowsy and much less verbal than she was last week. I think it is simply going to take time. Cultures have been ordered. Her sodium is 136. She is on 1.5% saline fluids. There is no hydrocephalus on her CT scan. We will continue to closely follow her. Job ID: [id number]
--- NOTE | 2018-11-15 11:43 | PDOC.PN ---
- Subjective Encounter Start Date: 11/15/18 Encounter Start Time: 12:20 Subjective: Patient still confused, not making sense to family in room. -: No changes overnight. - Objective MAR Reviewed: Yes Vital Signs & Weight: Vital Signs (12 hours) Temp Pulse Ox 11/15/18 11:00 99.2 F 11/15/18 08:00 98.9 F 11/15/18 07:55 95 11/15/18 04:00 100.9 F H 11/15/18 00:00 98.3 F Weight Admit Weight 168 lb Weight 155 lb 3.287 oz Most Recent Monitor Data Heart Rate from ECG 75 NIBP 167/69 NIBP BP-Mean 101 Respiration from ECG 20 SpO2 98 I&O: 11/14/18 11/15/18 11/16/18 06:59 06:59 06:59 Intake Total 5607 4717 420 Output Total 4490 6710 860 Balance 1117 -1993 -440 Result Diagrams: 11/15/18 03:20 11/15/18 03:20 Additional Labs: Accuchecks 11/15/18 11/15/18 11/14/18 11:17 06:33 21:16 POC Glucose 166 H 177 H 160 H 11/14/18 11/14/18 16:48 12:13 POC Glucose 173 H 179 H Phys Exam - Physical Examination Constitutional: NAD HEENT: moist MMs Respiratory: no wheezing, no rales, no rhonchi Cardiovascular: RRR, no significant murmur Gastrointestinal: soft, positive bowel sounds Musculoskeletal: no edema Deviation from normal: sleeping, arousable but goes right back to sleep Dx/Plan (1) SAH (subarachnoid hemorrhage) Code(s): I60.9 - NONTRAUMATIC SUBARACHNOID HEMORRHAGE, UNSPECIFIED Status: Acute Comment: due to aneurismal rupture, s/p clipping Left PCOM and Left MCA aneurysms (2) Intracranial aneurysm Code(s): I67.1 - CEREBRAL ANEURYSM, NONRUPTURED Status: Resolved (3) HTN (hypertension) Code(s): I10 - ESSENTIAL (PRIMARY) HYPERTENSION Status: Acute Qualifiers: Hypertension type: essential hypertension Qualified Code(s): I10 - Essential (primary) hypertension Comment: hypertensive emergency resolved with cardene drip (4) Acute metabolic encephalopathy Code(s): G93.41 - METABOLIC ENCEPHALOPATHY Status: Acute (5) Sepsis Code(s): A41.9 - SEPSIS, UNSPECIFIED ORGANISM Status: Acute Comment: fever and leukocytosis, cultured and abx started 11/14/2018 Cefepime and Vancomycin (6) Hypokalemia Code(s): E87.6 - HYPOKALEMIA Status: Acute Comment: replacing - Plan cont current plan of care, continue antibiotics, PT/OT * . - Discharge Day Encounter end time: 12:40
[2018-11-15 16:34] LABS: Sodium 133 mmol/L (136-145)
[2018-11-16] MEDS: niMODipine 30 MG CAP PO SCH ×7 (00:10→21:35)
[2018-11-16] MEDS: Norepinephrine 8 MG/250 ML IVPB SCH ×4 (02:26→20:42)
[2018-11-16] MEDS: Acetaminophen 325 MG TAB PO PRN ×2 (04:49→13:06)
[2018-11-16 05:18] LABS: #Basophils 0.1 thou/uL (0.0-0.2); #Eosinphils 0.1 thou/uL (0.0-0.7); #Monocytes 0.9 thou/uL (0.11-0.59); #Neutrophils 8.7 thou/uL (1.40-6.50); %Basophils 0.7 % (0.0-1.0); %Eosinophils 0.5 % (0.0-10.0); %Lymphocytes 17.4 % (21.0-51.0); %Monocytes 7.2 % (0.0-10.0); %Neutrophils 74.3 % (42.0-75.0); Hemoglobin 10.4 g/dL (12.0-16.0); Mean Corpuscular HGB CONC 34.6 g/dL (32.0-36.0); Mean Corpuscular Hemoglobin 31.5 pg (27.0-31.0); Mean Corpuscular Volume 91.1 fL (78.0-98.0); Mean Platelet Volume 6.7 fL (7.4-10.4); Platelet Count 287 thou/uL (130-400); RBC Distribution Width 12.3 % (11.5-14.5); Red Blood Cell (RBC) Count 3.32 mill/uL (4.20-5.40); White Blood Cell (WBC) Count 11.8 thou/uL (4.8-10.8)
[2018-11-16 05:37] LABS: Anion Gap 14 mmol/L (10-20); BUN (Urea Nitrogen) 5 mg/dL (9.8-20.1); Calc. Creatinine Clearance 110 mL/min (70-130); Calcium 8.4 mg/dL (7.8-10.44); Carbon Dioxide 23 mmol/L (22-29); Chloride 104 mmol/L (98-107); Estimated GFR-MDRD Greater than 90; Glucose 166 mg/dL (70-105); Sodium 138 mmol/L (136-145)
[2018-11-16] MEDS: SODIUM CHLORIDE IV SCH ×3 (06:07→21:03)
[2018-11-16] MEDS: Potassium Chloride 20 MEQ TAB PO PRN (06:07)
[2018-11-16] MEDS: STERILE WATER IV SCH ×3 (06:07→21:03)
[2018-11-16] MEDS: Potassium Chloride 40 MEQ in Premix Bag 1 BAG IVPB PRN (06:22)
[2018-11-16] MEDS: Cefepime 1 GM in Sodium Chloride 0.9% 100 ML IVPB SCH ×2 (08:53→20:42)
[2018-11-16] MEDS: Vancomycin HCl 1.5 GM in Sodium Chloride 0.9% 250 ML 300 ML IVPB SCH ×2 (08:54→22:07)
[2018-11-16] MEDS: Famotidine/PF 20 mg/2ml Vial SLOW IVP SCH ×2 (08:54→20:43)
--- NOTE | 2018-11-16 09:29 | PRG ---
DATE OF SERVICE: 11/16/2018 SUBJECTIVE: She is continuing to experience cerebral vasospasm. Her mental status waxes and wanes. It is definitely dependent on blood pressure and the goal now is keeping her blood pressure between 160 and 180 systolic. OBJECTIVE: VITAL SIGNS: Temperature is 100.4, it has been as high as 101.7, pulse 81, and blood pressure 167/81. HEENT: Unremarkable except for the dressing. NECK: No JVD. CHEST: Clear. CARDIAC: S1 and S2. Regular. ABDOMEN: Soft. EXTREMITIES: No edema. LABORATORY DATA: Sodium 138, potassium 3.0, chloride 104, CO2 of 23, BUN 5, creatinine 0.5, and glucose 166. White count 11.8, hematocrit 30.2, and platelet count 287. Micro shows no growth to-date. ASSESSMENT AND PLAN: 1. The patient is experiencing cerebral vasospasms. She is being treated with 1.5% saline to maintain adequate sodium. She is also on Levophed for blood pressure management. 2. She is having a fever, started empiric cefepime and vancomycin yesterday. I will check a chest x-ray today. 3. Tube feeding needs to be started through a Dobbhoff tube as she is not consistently eating. We will check a KUB for tube placement. Job ID: [id number]
--- NOTE | 2018-11-16 09:31 | RAD ---
SINGLE VIEW CHEST: Date: 11/16/18 COMPARISON: 11/14/18. HISTORY: Pulmonary infiltrate. FINDINGS: Single view of the chest shows a cardiomediastinal silhouette which is upper limits of normal in size . The PICC line is unchanged n position. There is a Dobbhoff tube with its tip in the left upper quad rant of the abdomen, likely within the stomach. There is no evidence of consolidation, mass, or pleur al effusion. IMPRESSION: No evidence of acute cardiopulmonary disease. POS: [facility]
--- NOTE | 2018-11-16 10:22 | RAD ---
RADIOGRAPH ABDOMEN ONE VIEW: 11/16/2018 8:37 a.m. HISTORY: A 58-year-old female, status post Dobhoff tube placement. FINDINGS: Dobhoff tube descends from the left paramedian chest, takes a wide loop across the midline at the mid abdomen, and then doubles back upon itself to the medial aspect of the left upper quadrant, very nimco se to the diaphragmatic shadow. The introducer sheath envelopes almost the entire Dobhoff feeding tu be, except for its distal tip. IMPRESSION: The Dobhoff feeding tube is apparently doubling back upon itself from the mid to distal body of the s tomach, back to the gastric fundus or cardia. POS: [facility]
--- NOTE | 2018-11-16 10:28 | PDOC.PN ---
- Subjective Encounter Start Date: 11/16/18 Encounter Start Time: 11:00 Subjective: Patient not as responsive today. Still saying things that don't make -: sense per family. - Objective MAR Reviewed: Yes Vital Signs & Weight: Vital Signs (12 hours) Temp 11/16/18 08:00 100.4 F H 11/16/18 04:00 101.7 F H 11/16/18 03:00 100.9 F H 11/16/18 00:00 100.9 F H Weight Admit Weight 168 lb Weight 140 lb 14.006 oz Most Recent Monitor Data Heart Rate from ECG 79 NIBP 151/83 NIBP BP-Mean 105 Respiration from ECG 22 SpO2 98 I&O: 11/15/18 11/16/18 11/17/18 06:59 06:59 06:59 Intake Total 4717 6814 Output Total 6710 5825 575 989 -075 Result Diagrams: 11/16/18 04:46 11/16/18 04:46 Additional Labs: Accuchecks 11/15/18 11/15/18 11/15/18 20:11 16:06 11:17 POC Glucose 262 H 159 H 166 H Phys Exam - Physical Examination Constitutional: NAD HEENT: moist MMs Respiratory: no wheezing, no rales, no rhonchi Cardiovascular: RRR Gastrointestinal: soft, positive bowel sounds Deviation from normal: opens eyes to stimulation, not following any commands, no vocalization for me Dx/Plan (1) SAH (subarachnoid hemorrhage) Code(s): I60.9 - NONTRAUMATIC SUBARACHNOID HEMORRHAGE, UNSPECIFIED Status: Acute Comment: due to aneurismal rupture, s/p clipping Left PCOM and Left MCA aneurysms (2) Intracranial aneurysm Code(s): I67.1 - CEREBRAL ANEURYSM, NONRUPTURED Status: Resolved (3) HTN (hypertension) Code(s): I10 - ESSENTIAL (PRIMARY) HYPERTENSION Status: Acute Qualifiers: Hypertension type: essential hypertension Qualified Code(s): I10 - Essential (primary) hypertension Comment: hypertensive emergency resolved with cardene drip (4) Acute metabolic encephalopathy Code(s): G93.41 - METABOLIC ENCEPHALOPATHY Status: Acute Comment: due to cerebral vasospasm, keep BP 160-180 (5) Sepsis Code(s): A41.9 - SEPSIS, UNSPECIFIED ORGANISM Status: Acute Comment: fever and leukocytosis, cultured and abx started 11/14/2018 Cefepime and Vancomycin (6) Hypokalemia Code(s): E87.6 - HYPOKALEMIA Status: Acute Comment: replacing - Plan cont current plan of care, continue antibiotics, PT/OT * . - Discharge Day Encounter end time: 11:10
--- NOTE | 2018-11-16 10:30 | PRG ---
DATE OF SERVICE: 11/16/2018 SUBJECTIVE: Ms. Mota is hospital day 8 and also bleed day 8 for ruptured left PCOM aneurysm and clipping of both the left PCOM and the left MCA aneurysm. CT angiogram did not disclose any worrisome vasospasm yesterday. There was no hydrocephalus. There was clearing of her subarachnoid hemorrhage and obliteration of both aneurysms with clipping. This morning, she opens her eyes, looks at me and smiles and even says hello. She follows commands. Her family continues to be concerned about her neurologic state, although daily, we have re-emphasized on multiple occasions that ruptured aneurysm can sometimes be fatal and often times carries high morbidity and requires prolongation for recovery along with patients. We obtained an ultrasound of the lower extremities on the and this was negative. We had also obtained one on the and this was also negative. I should note that she has a mild leukocytosis at 11.8, but is on antibiotics. Her fluid balance yesterday was positive and I should note her sodium is currently 138, which is acceptable. Continue to closely follow Ms. Mota. I have let the family know that we are likely on the downward slope in regard to vasospasm in which is good news. Job ID: [id number]
--- NOTE | 2018-11-16 11:19 | RAD ---
Exam: Single view of the abdomen HISTORY: Abdominal pain COMPARISON: None FINDINGS: Single view of the abdomen shows a nonspecific, nonobstructive bowel gas pattern. A Dobbhof f tube is seen in the stomach. No suspicious calcifications are seen. The bones are unremarkable. IMPRESSION: Dobbhoff tube located in the stomach.
--- NOTE | 2018-11-16 12:12 | RAD ---
ABDOMEN 1 VIEW: Date: 11/16/18 HISTORY: Dobbhoff tube placement. FINDINGS/IMPRESSION: Comparison made with exam at 1102 hours from the same date. The feeding tube is in the stomach. Bowel gas pattern is unremarkable. POS: [facility]
[2018-11-16] MEDS: HumaLOG 300 UNITS/3 ML VIAL SC PRN (13:20)
[2018-11-16 16:24] LABS: Sodium 137 mmol/L (136-145)
[2018-11-16 21:27] LABS: Vancomycin, Trough 5.7 ug/mL
[2018-11-17] MEDS: Acetaminophen 325 MG TAB PO PRN (00:12)
[2018-11-17] MEDS: SODIUM CHLORIDE IV SCH ×4 (00:12→20:04)
[2018-11-17] MEDS: STERILE WATER IV SCH ×4 (00:12→20:04)
[2018-11-17] MEDS: niMODipine 30 MG CAP PO SCH ×6 (00:13→20:41)
[2018-11-17] MEDS: Norepinephrine 8 MG/250 ML IVPB SCH ×3 (02:03→21:05)
[2018-11-17] MEDS: Vancomycin HCl 1.5 GM in Sodium Chloride 0.9% 250 ML 300 ML IVPB SCH ×3 (05:46→22:04)
[2018-11-17 06:06] LABS: #Basophils 0.1 thou/uL (0.0-0.2); #Eosinphils 0.1 thou/uL (0.0-0.7); #Lymphocytes 3.1 thou/uL (1.20-3.40); #Monocytes 1.1 thou/uL (0.11-0.59); #Neutrophils 7.5 thou/uL (1.40-6.50); %Basophils 0.7 % (0.0-1.0); %Eosinophils 0.9 % (0.0-10.0); %Lymphocytes 26.3 % (21.0-51.0); %Neutrophils 63.1 % (42.0-75.0); Hemoglobin 10.6 g/dL (12.0-16.0); Mean Corpuscular HGB CONC 33.3 g/dL (32.0-36.0); Mean Corpuscular Hemoglobin 30.8 pg (27.0-31.0); Mean Corpuscular Volume 92.3 fL (78.0-98.0); Mean Platelet Volume 6.7 fL (7.4-10.4); Platelet Count 335 thou/uL (130-400); RBC Distribution Width 12.5 % (11.5-14.5); Red Blood Cell (RBC) Count 3.44 mill/uL (4.20-5.40); White Blood Cell (WBC) Count 11.8 thou/uL (4.8-10.8)
[2018-11-17 06:15] LABS: Anion Gap 14 mmol/L (10-20); BUN (Urea Nitrogen) 8 mg/dL (9.8-20.1); Calc. Creatinine Clearance 110 mL/min (70-130); Calcium 8.5 mg/dL (7.8-10.44); Carbon Dioxide 22 mmol/L (22-29); Chloride 106 mmol/L (98-107); Estimated GFR-MDRD Greater than 90; Glucose 160 mg/dL (70-105); Sodium 139 mmol/L (136-145)
[2018-11-17 06:19] LABS: Potassium 2.9 mmol/L (3.5-5.1)
[2018-11-17] MEDS: Potassium Chloride 40 MEQ in Premix Bag 1 BAG IVPB PRN (06:25)
--- NOTE | 2018-11-17 07:55 | PRG ---
DATE OF SERVICE: 11/17/2018 SUBJECTIVE: She is more awake and alert this morning. Her Nimotop was held because of wildly fluctuating blood pressures. OBJECTIVE: VITAL SIGNS: Temperature 99.2. Her T-max is 101.5. Pulse 72, blood pressure 178/74. HEENT: Unremarkable, except for NG tube in her left naris. NECK: No JVD. CHEST: Clear to auscultation without wheezing. CARDIAC: S1, S2. Regular. ABDOMEN: Soft. EXTREMITIES: No edema. LABORATORY DATA: Sodium 139, potassium 2.9, chloride 106, CO2 of 22, BUN 8, creatinine 0.5, glucose 160. White blood cell count 11.8, hematocrit 31.8, and platelet count 335. Chest x-ray shows no mass, effusion, or infiltrate. The KUB shows that the Dobhoff tube was located in the stomach. ASSESSMENT: 1. Cerebral vasospasm, which clinically appears to be improved today symptomatic. 2. Status post aneurysmal bleed. 3. Hypokalemia secondary to salt wasting due to giving her slightly hypertonic saline. PLAN: 1. Replace potassium. 2. Continue the empiric antibiotics for the time being, although so far cultures have not come back positive. It is my feeling that the fever is probably central in nature. 3. Discontinue the Seroquel. 4. Recheck potassium later today. Job ID: [id number]
--- NOTE | 2018-11-17 08:52 | RAD ---
CHEST 1 VIEW: INDICATION: History of pneumonia. COMPARISON: Prior exam dated 11/16/2018. FINDINGS: Tubes and lines are stable. Mild cardiomegaly persists. No consolidation or pleural effusion is lamine dent. IMPRESSION: Stable exam. POS: [facility]
[2018-11-17] MEDS: Cefepime 1 GM in Sodium Chloride 0.9% 100 ML IVPB SCH ×2 (09:23→20:40)
[2018-11-17] MEDS: Famotidine/PF 20 mg/2ml Vial SLOW IVP SCH ×2 (09:24→20:41)
--- NOTE | 2018-11-17 10:40 | ULT ---
FUltrasound Doppler duplex venous bilateral lower extremities: 11/17/2018 HISTORY: Bilateral lower extremity edema in 58-year-old female. TECHNIQUE: Grayscale, color-flow, and spectral analysis, of major veins of bilateral lower extremities. FINDINGS: There is demonstration of blood flow with normal compressibility, of the bilateral common femoral, pr ofunda femoral, greater saphenous, femoral, popliteal, and posterior tibial, veins. IMPRESSION: Negative. No deep venous thrombosis of bilateral lower extremities.
[2018-11-17] MEDS: traMADol HCl 50 MG TAB PO PRN ×2 (11:36→16:51)
--- NOTE | 2018-11-17 12:19 | PDOC.PN ---
- Subjective Encounter Start Date: 11/17/18 Encounter Start Time: 12:20 Subjective: Patient with improvement in alertness and mentation today, talking -: a little more sense and responding more normally. Still confused. - Objective MAR Reviewed: Yes Vital Signs & Weight: Vital Signs (12 hours) Temp Pulse Ox 11/17/18 08:00 100 11/17/18 04:00 99.2 F Weight Admit Weight 168 lb Weight 140 lb 12.8 oz Most Recent Monitor Data Heart Rate from ECG 73 NIBP 168/72 NIBP BP-Mean 104 Respiration from ECG 25 SpO2 98 I&O: 11/16/18 11/17/18 11/18/18 06:59 06:59 06:59 Intake Total 6814 4467 Output Total 5886 5313 655 Balance 989 559 -965 Result Diagrams: 11/17/18 05:30 11/17/18 12:42 Additional Labs: Accuchecks 11/16/18 11/16/18 11/16/18 20:26 17:18 13:14 POC Glucose 181 H 136 H 157 H Phys Exam - Physical Examination Constitutional: NAD HEENT: moist MMs Respiratory: no wheezing, no rales, no rhonchi Cardiovascular: RRR Gastrointestinal: soft, positive bowel sounds Musculoskeletal: no edema Psychiatric: normal affect Deviation from normal: alert, responding properly to pleasantries Dx/Plan (1) SAH (subarachnoid hemorrhage) Code(s): I60.9 - NONTRAUMATIC SUBARACHNOID HEMORRHAGE, UNSPECIFIED Status: Acute Comment: due to aneurismal rupture, s/p clipping Left PCOM and Left MCA aneurysms (2) Intracranial aneurysm Code(s): I67.1 - CEREBRAL ANEURYSM, NONRUPTURED Status: Resolved (3) HTN (hypertension) Code(s): I10 - ESSENTIAL (PRIMARY) HYPERTENSION Status: Acute Qualifiers: Hypertension type: essential hypertension Qualified Code(s): I10 - Essential (primary) hypertension Comment: hypertensive emergency resolved with cardene drip (4) Acute metabolic encephalopathy Code(s): G93.41 - METABOLIC ENCEPHALOPATHY Status: Acute Comment: due to cerebral vasospasm, keep BP 160-180 (5) Sepsis Code(s): A41.9 - SEPSIS, UNSPECIFIED ORGANISM Status: Acute Comment: fever and leukocytosis, cultured and abx started 11/14/2018 Cefepime and Vancomycin, all cultures neg so likely central in origin (6) Hypokalemia Code(s): E87.6 - HYPOKALEMIA Status: Acute Comment: replacing - Plan cont current plan of care, continue antibiotics, PT/OT * . - Discharge Day Encounter end time: 12:30
--- NOTE | 2018-11-17 12:41 | PRG ---
DATE OF SERVICE: 11/17/2018 This is Greg Chilel PA-C dictating a report for Maxi Cifuentes MD. Ms. Mota is now hospital day 9 and post bleed day #9 with postoperative day #7, having undergone ruptured aneurysm and clipping of aneurysm. She is doing well today. She smiles and is awake and interactive. Her incision is covered. She has fluctuating blood pressures, but is still able to follow commands equally in all four extremities. She is doing well today. I have updated her family in great detail that she may have some waxing and waning of symptoms, but overall she is improving. I would like to normalize her as much as possible, and therefore, I have asked that she become more mobile and work with therapies more actively. She is still on the vasospasm window and she remains on Levophed in order to improve her blood pressure. Please call with any changes in the patient's neurologic status. I should note that we will check an ultrasound of the bilateral lower extremities, but again, plan to mobilize her much more and hope to normalize her activity soon. Please call with any changes in the patient's neurologic status. Job ID: [id number]
[2018-11-17 13:16] LABS: Potassium 3.6 mmol/L (3.5-5.1)
[2018-11-17 15:37] LABS: Potassium 3.1 mmol/L (3.5-5.1)
[2018-11-17 17:02] LABS: Sodium 140 mmol/L (136-145)
[2018-11-17] MEDS: HumaLOG 300 UNITS/3 ML VIAL SC PRN (18:04)
[2018-11-17 21:57] LABS: Vancomycin, Trough 12.8 ug/mL
[2018-11-18] MEDS: niMODipine 30 MG CAP PO SCH ×6 (00:04→20:04)
[2018-11-18] MEDS: Melatonin 3 MG TAB PO PRN (00:17)
[2018-11-18] MEDS: SODIUM CHLORIDE IV SCH ×4 (01:13→17:49)
[2018-11-18] MEDS: STERILE WATER IV SCH ×4 (01:13→17:49)
[2018-11-18] MEDS: Norepinephrine 8 MG/250 ML IVPB SCH ×2 (01:44→06:42)
[2018-11-18] MEDS: traMADol HCl 50 MG TAB PO PRN ×4 (01:47→22:42)
[2018-11-18 04:43] LABS: #Basophils 0.1 thou/uL (0.0-0.2); #Eosinphils 0.2 thou/uL (0.0-0.7); #Monocytes 0.9 thou/uL (0.11-0.59); #Neutrophils 8.8 thou/uL (1.40-6.50); %Basophils 0.9 % (0.0-1.0); %Eosinophils 1.6 % (0.0-10.0); %Lymphocytes 16.4 % (21.0-51.0); %Monocytes 7.7 % (0.0-10.0); %Neutrophils 73.4 % (42.0-75.0); Hemoglobin 10.6 g/dL (12.0-16.0); Mean Corpuscular HGB CONC 33.8 g/dL (32.0-36.0); Mean Corpuscular Hemoglobin 31.3 pg (27.0-31.0); Mean Corpuscular Volume 92.6 fL (78.0-98.0); Mean Platelet Volume 6.8 fL (7.4-10.4); Platelet Count 344 thou/uL (130-400); RBC Distribution Width 12.5 % (11.5-14.5)
[2018-11-18 05:01] LABS: Anion Gap 13 mmol/L (10-20); BUN (Urea Nitrogen) 4 mg/dL (9.8-20.1); Calc. Creatinine Clearance 118 mL/min (70-130); Calcium 8.4 mg/dL (7.8-10.44); Carbon Dioxide 26 mmol/L (22-29); Chloride 101 mmol/L (98-107); Estimated GFR-MDRD Greater than 90; Glucose 166 mg/dL (70-105); Sodium 137 mmol/L (136-145)
[2018-11-18 05:04] LABS: Potassium 2.5 mmol/L (3.5-5.1)
[2018-11-18] MEDS: Potassium Chloride 40 MEQ in Premix Bag 1 BAG IVPB PRN (05:07)
[2018-11-18] MEDS: Acetaminophen 325 MG TAB PO PRN ×3 (05:07→21:10)
[2018-11-18] MEDS: Vancomycin HCl 1.5 GM in Sodium Chloride 0.9% 250 ML 300 ML IVPB SCH (05:07)
[2018-11-18] MEDS: HumaLOG 300 UNITS/3 ML VIAL SC PRN ×2 (06:11→15:50)
[2018-11-18] MEDS: Cefepime 1 GM in Sodium Chloride 0.9% 100 ML IVPB SCH ×2 (08:32→21:17)
[2018-11-18] MEDS: Famotidine/PF 20 mg/2ml Vial SLOW IVP SCH ×2 (08:32→21:09)
--- NOTE | 2018-11-18 09:00 | PRG ---
DATE OF SERVICE: 11/18/2018 SUBJECTIVE: She is in much better spirits. Family says she is more oriented. She remains on a Levophed drip at 20 mcg/minute. OBJECTIVE: VITAL SIGNS: Temperature is 97.6, pulse 79, blood pressure 154/67, and O2 saturation 98%. HEENT: Remarkable for bandage in place. NECK: No JVD. CHEST: Clear. CARDIAC: S1 and S2. Regular. ABDOMEN: Soft. EXTREMITIES: No edema. LABORATORY DATA: Sodium 137 and potassium is 2.5. Hemoglobin 10.6, hematocrit 31.5, and platelet count 344. ASSESSMENT: 1. Cerebral vasospasm, which has improved. 2. Hypokalemia. PLAN: 1. Replace potassium and wean Levophed. 2. I will go ahead and stop the vancomycin. I think the gram-positive lesli that resulted is a contaminant. She will continue the cefepime. Neurosurgery may be moving her to the floor once she is off the Levophed. Job ID: [id number]
--- NOTE | 2018-11-18 09:50 | PRG ---
DATE OF SERVICE: 11/18/2018 SUBJECTIVE: Ms. Mota is now 10 days out of her following her subarachnoid hemorrhage, 8 days out from clipping of both aneurysms. She is alert and appropriate this morning. She follows commands and is nonfocal. We will decrease her 1.5% fluids to 100 mL an hour, and I should note an ultrasound of lower extremities was negative yesterday. We will discontinue her pressor support. She is coming here the end of her vasospasm window, and a CT angiogram postoperatively demonstrated obliteration of the aneurysms and no worrisome vasospasm. We will plan to mobilize her on the floor and arrange for inpatient rehab. Job ID: [id number]
--- NOTE | 2018-11-18 10:21 | PDOC.PN ---
- Subjective Encounter Start Date: 11/18/18 Encounter Start Time: 12:20 Subjective: Patient much more alert, talking normally. Some persistent headache , no -: other complaints. Weaning off levophed per NS recs. - Objective MAR Reviewed: Yes Vital Signs & Weight: Vital Signs (12 hours) Temp 11/18/18 03:00 97.6 F 11/17/18 23:00 99.8 F H Weight Admit Weight 168 lb Weight 138 lb 13.201 oz Most Recent Monitor Data Heart Rate from ECG 79 NIBP 154/67 NIBP BP-Mean 96 Respiration from ECG 20 SpO2 98 I&O: 11/17/18 11/18/18 11/19/18 06:59 06:59 06:59 Intake Total 4467 5668 Output Total 4150 4160 Balance 317 1508 Result Diagrams: 11/18/18 04:05 11/18/18 04:05 Additional Labs: Accuchecks 11/17/18 11/17/18 11/17/18 21:13 17:24 11:59 POC Glucose 149 H 180 H 169 H 11/17/18 05:31 POC Glucose 142 H Phys Exam - Physical Examination Constitutional: NAD HEENT: moist MMs scalp incision well closed, healing well Respiratory: no wheezing, no rales, no rhonchi Cardiovascular: RRR, no significant murmur Gastrointestinal: soft, non-tender, positive bowel sounds Neurological: moves all 4 limbs Psychiatric: normal affect Dx/Plan (1) SAH (subarachnoid hemorrhage) Code(s): I60.9 - NONTRAUMATIC SUBARACHNOID HEMORRHAGE, UNSPECIFIED Status: Acute Comment: due to aneurismal rupture, s/p clipping Left PCOM and Left MCA aneurysms (2) Intracranial aneurysm Code(s): I67.1 - CEREBRAL ANEURYSM, NONRUPTURED Status: Resolved (3) HTN (hypertension) Code(s): I10 - ESSENTIAL (PRIMARY) HYPERTENSION Status: Acute Qualifiers: Hypertension type: essential hypertension Qualified Code(s): I10 - Essential (primary) hypertension Comment: hypertensive emergency resolved with cardene drip (4) Acute metabolic encephalopathy Code(s): G93.41 - METABOLIC ENCEPHALOPATHY Status: Acute Comment: due to cerebral vasospasm, keep BP 160-180, markedly improved (5) Sepsis Code(s): A41.9 - SEPSIS, UNSPECIFIED ORGANISM Status: Acute Comment: fever and leukocytosis, cultured and abx started 11/14/2018 Cefepime and Vancomycin, likely central in origin. 1/2 cultures positive for gram + rods on day 4, likely contaminent. Keep abx up for now until ID'd (6) Hypokalemia Code(s): E87.6 - HYPOKALEMIA Status: Acute Comment: replacing - Plan cont current plan of care, PT/OT Can transfer to floor once off levophed and work on rehab placement * . - Discharge Day Encounter end time: 12:30
[2018-11-18] MEDS: Ondansetron PF 4 MG/2 ML Vial IVP PRN (16:06)
[2018-11-18 16:11] LABS: Sodium 135 mmol/L (136-145)
[2018-11-18 16:12] LABS: Potassium 3.3 mmol/L (3.5-5.1)
[2018-11-18] MEDS: Potassium Chloride 20 MEQ TAB PO PRN (17:21)
[2018-11-18 21:14] LABS: Vancomycin, Trough 5.9 ug/mL
[2018-11-19] MEDS: niMODipine 30 MG CAP PO SCH ×6 (01:55→20:34)
[2018-11-19] MEDS ORDERED: Lorazepam 1 MG TAB PO PRN (02:11)
[2018-11-19] MEDS: SODIUM CHLORIDE IV SCH ×5 (05:55→16:35)
[2018-11-19] MEDS: STERILE WATER IV SCH ×5 (05:55→16:35)
[2018-11-19 08:42] LABS: #Monocytes 0.6 thou/uL (0.11-0.59); #Neutrophils 9.2 thou/uL (1.40-6.50); %Basophils 0.2 % (0.0-1.0); %Eosinophils 0.3 % (0.0-10.0); %Monocytes 5.8 % (0.0-10.0); %Neutrophils 84.8 % (42.0-75.0); Hemoglobin 10.1 g/dL (12.0-16.0); Mean Corpuscular HGB CONC 33.8 g/dL (32.0-36.0); Mean Corpuscular Hemoglobin 30.7 pg (27.0-31.0); Mean Corpuscular Volume 90.9 fL (78.0-98.0); Mean Platelet Volume 6.9 fL (7.4-10.4); Platelet Count 307 thou/uL (130-400); RBC Distribution Width 12.4 % (11.5-14.5); Red Blood Cell (RBC) Count 3.28 mill/uL (4.20-5.40); White Blood Cell (WBC) Count 10.9 thou/uL (4.8-10.8)
[2018-11-19] MEDS: Cefepime 1 GM in Sodium Chloride 0.9% 100 ML IVPB SCH ×2 (08:51→20:33)
[2018-11-19] MEDS: Famotidine/PF 20 mg/2ml Vial SLOW IVP SCH ×2 (08:51→20:33)
[2018-11-19 09:01] LABS: Anion Gap 10 mmol/L (10-20); BUN (Urea Nitrogen) 5 mg/dL (9.8-20.1); Calc. Creatinine Clearance 143 mL/min (70-130); Calcium 8.8 mg/dL (7.8-10.44); Carbon Dioxide 26 mmol/L (22-29); Chloride 100 mmol/L (98-107); Estimated GFR-MDRD Greater than 90; Glucose 148 mg/dL (70-105); Potassium 3.2 mmol/L (3.5-5.1); Sodium 133 mmol/L (136-145)
--- NOTE | 2018-11-19 09:08 | PRG ---
DATE OF SERVICE: 11/19/2018 SUBJECTIVE: I saw Ms. Mota upon the surgical floor this morning. The patient is very confused. The daughter states that the patient had a bad night. She was screaming out, did not sleep, was not acting herself all night long. These are symptoms that have been consistent with vasospasm in her in the past. OBJECTIVE: VITAL SIGNS: Currently, her temperature is 98.1, pulse 65, blood pressure 110/57, O2 saturation 95%. HEENT: Unremarkable. NECK: No JVD. CHEST: Clear to auscultation. CARDIAC: S1 and S2, regular. ABDOMEN: Soft. EXTREMITIES: No edema. LABORATORY DATA: For some reason, her labs were not done today. ASSESSMENT: 1. Probable recurrent vasospasm. 2. Status post aneurysmal clipping. PLAN: 1. She will be transferred to the ICU. We will check a stat basic metabolic panel. She is currently on 1.5% saline. This may need to be changed in the upcoming days. 2. Discussed with Dr. Cifuentes. We will repeat CT angiogram. 3. I will go ahead and restart the Levophed for the time being. Job ID: [id number]
--- NOTE | 2018-11-19 10:19 | CT ---
FCT angiogram of head with and without contrast: DATE: 11/19/2018 HISTORY: 58-year-old female status post clipping of intracranial aneurysm. Vasospasm follow-up. COMPARISON: 11/15/2018 TECHNIQUE: Noncontrast brain CT performed. Iodinated IV contrast injected. Bolus chasing technique scan performed through the head. Coronal and sagittal 3-D MIP reconstructions. FINDINGS: Again noted are the left pterional craniotomy changes. Again noted are the aneurysm clips in the irene on of the left middle cerebral artery. There is contrast opacification of the posterior circulation a nd the M1 segments of the bilateral middle cerebral arteries. All visualized intracranial arteries ar e diffusely small in caliber. No contrast opacification of the aneurysm is visualized, but there is s evere streak artifact from the aneurysm clips could easily obscure it. There is contrast opacificatio n of branches of the left middle cerebral artery. Again noted is the small focus of brain parenchymal low attenuation in the left upper frontal lobe. Small amount of left temporal subdural blood is unch anged. There is edema in the brain parenchyma adjacent to the aneurysm clips. There is another region of edema focally in the left lateral suprasylvian brain parenchyma which may represent a new acute i nfarction (axial image 21 of 36, series 2). No new hemorrhage. No obstructive hydrocephalus. No mass effect or midline shift. Diffuse effacement of sulcal markings unchanged. Small amount of intraventri cular hemorrhage in the occipital horns has become less dense. IMPRESSION: 1. Status post clipping of left middle cerebral artery aneurysm via a left pterional craniotomy. 2. There is contrast opacification of branches of the left middle cerebral artery. 3. Interval development of small acute infarction in left middle cerebral artery territory at left fr ontotemporal lateral junction. 4. Left inferior frontal and left superior frontal small infarctions, recent, unchanged.
[2018-11-19] MEDS: Potassium Chloride 20 MEQ TAB PO PRN (10:51)
[2018-11-19 11:04] LABS: Anion Gap 13 mmol/L (10-20); BUN (Urea Nitrogen) 5 mg/dL (9.8-20.1); Calc. Creatinine Clearance 132 mL/min (70-130); Calcium 9.1 mg/dL (7.8-10.44); Carbon Dioxide 25 mmol/L (22-29); Chloride 99 mmol/L (98-107); Estimated GFR-MDRD Greater than 90; Glucose 139 mg/dL (70-105); Potassium 3.5 mmol/L (3.5-5.1); Sodium 133 mmol/L (136-145)
--- NOTE | 2018-11-19 11:55 | PRG ---
DATE OF SERVICE: 11/19/2018 SUBJECTIVE: Ms. Mota is hospital day 11 and postoperative day 9 for clipping of a ruptured left PCOM aneurysm and an ruptured left MCA aneurysm. From a neurological standpoint, she had a couple days of doing very well on the ICU and was beyond the peak vasospasm window. Head CT was satisfactory with area of hypodensity in the subfrontal region, likely related to retraction edema. However, no clear vasospasm. As such, I felt that she was safe to transfer to the floor. We did this and evidently last night, she had a very difficult night with hallucinations, delirium nonfocal exam, appeared to be more drowsy. Head CT, CTA this morning demonstrates no evidence of hydrocephalus. There is a small left frontal infarct that was minimally visible on the prior head CT and I do not think this is clinically symptomatic and may be a smaller one in the left temporal region, although I did a subfrontal transsylvian approach, some of this may be simply edema. There is no clear vasospasm on the CTA and the aneurysms remain secure and again there is no hydrocephalus and there has been clearing of her subarachnoid hemorrhage. I think that the delirium may be related to change of location given the fact that she has been essentially prolonged bed rest and she has mild hyponatremia at 133, I decreased to 1.5% IV fluids from 175 mL/h to 100 mL/h, and what I will plan to do is transfer her back to the ICU for closer monitoring as I do not think she is out of the vasospasm window necessarily at this point, and we will increase her fluids to 175 mL an hour. We will restart Levophed for pressor to obtain target systolic blood pressures in the 140 to 180 range and we will check b.i.d. sodiums. My hope is that we will only need to be in the ICU through the weekend and perhaps transfer back to the floor on early this week. On exam, she is drowsy, but does follow commands and wakens easily. Her wound is healing well. She has not demonstrated any evidence of delirium or hallucinations at this point. The family has been updated. I should note we will also check cultures as she had one positive culture of gram-positive lesli, but she has been on cefepime already and she has been afebrile with mild leukocytosis at 10.9, which is trended down from high point of 13.2 four days ago. Overall, I am very pleased with how Ms. Mota is doing, this is typical for postoperative subarachnoid hemorrhage related aneurysm rupture and clipping. Job ID: [id number]
[2018-11-19] MEDS: Norepinephrine 8 MG/0.9% NS 250 ML IVPB SCH (12:00)
[2018-11-19] MEDS ORDERED: Norepinephrine 8 MG/250 ML IVPB SCH (13:00)
--- NOTE | 2018-11-19 13:09 | PDOC.PN ---
- Subjective Encounter Start Date: 11/19/18 Encounter Start Time: 13:08 Subjective: had confusion and hallucinations last night. -: could not get nimodipine due to soft BP. Transfered back to ICU. -: Sleeping. - Objective Vital Signs & Weight: Vital Signs (12 hours) Temp Pulse Resp BP BP Pulse Ox 11/19/18 09:45 99.3 F 11/19/18 09:20 126/79 11/19/18 08:10 110/57 L 11/19/18 08:00 98.6 F 72 16 110/57 L 93 L 11/19/18 04:00 98.1 F 65 20 137/74 95 11/19/18 02:12 77 134/71 Weight Admit Weight 168 lb Weight 163 lb 3 oz Most Recent Monitor Data Heart Rate from ECG 74 NIBP 133/74 NIBP BP-Mean 93 Respiration from ECG 28 SpO2 97 I&O: 11/18/18 11/19/18 11/20/18 06:59 06:59 06:59 Intake Total 5667 3493 240 Output Total 4160 4475 1600 Balance 1508 -862 -2760 Result Diagrams: 11/19/18 08:28 11/19/18 10:30 Additional Labs: Accuchecks 11/19/18 11/18/18 11/18/18 05:56 20:59 15:49 POC Glucose 150 H 124 H 172 H Phys Exam - Physical Examination Constitutional: NAD HEENT: moist MMs Neck: no JVD, supple Respiratory: no wheezing, no rhonchi fair air entry bilaterally Cardiovascular: RRR Gastrointestinal: soft, no distention, positive bowel sounds Musculoskeletal: no edema Neurological: moves all 4 limbs sleeping but arousable Dx/Plan (1) Hyponatremia Code(s): E87.1 - HYPO-OSMOLALITY AND HYPONATREMIA Status: Acute (2) Acute metabolic encephalopathy Code(s): G93.41 - METABOLIC ENCEPHALOPATHY Status: Acute Comment: thought to be due to cerebral vasospasm, keep BP 140-180. (3) HTN (hypertension) Code(s): I10 - ESSENTIAL (PRIMARY) HYPERTENSION Status: Acute Qualifiers: Hypertension type: essential hypertension Qualified Code(s): I10 - Essential (primary) hypertension Comment: BP soft hence started on levophed. (4) Hypokalemia Code(s): E87.6 - HYPOKALEMIA Status: Acute Comment: replacing (5) SAH (subarachnoid hemorrhage) Code(s): I60.9 - NONTRAUMATIC SUBARACHNOID HEMORRHAGE, UNSPECIFIED Status: Acute Comment: due to aneurismal rupture, s/p clipping Left PCOM and Left MCA aneurysms (6) Intracranial aneurysm Code(s): I67.1 - CEREBRAL ANEURYSM, NONRUPTURED Status: Resolved (7) Diabetes mellitus Code(s): E11.9 - TYPE 2 DIABETES MELLITUS WITHOUT COMPLICATIONS Status: Acute - Plan Keep SBP between 140 to 180 with levophed. -: Hypertonic saline treatment as per Neurology. -: Get magnesium level. Replete serum potassium. -: Neurochecks and close monitoring. -: Continue nimodipine, sefepime and sliding scale insulin. * .
[2018-11-19] MEDS ORDERED: ISOVUE-370 76%-LOCM 1 ML ONE (15:24)
[2018-11-19] MEDS: Acetaminophen 325 MG TAB PO PRN ×3 (15:25→20:24)
[2018-11-19 16:19] LABS: Sodium 137 mmol/L (136-145)
[2018-11-20] MEDS: niMODipine 30 MG CAP PO SCH ×6 (00:29→21:28)
[2018-11-20] MEDS: Acetaminophen 325 MG TAB PO PRN ×3 (00:31→16:12)
[2018-11-20] MEDS: SODIUM CHLORIDE IV SCH ×2 (01:30→15:00)
[2018-11-20] MEDS: STERILE WATER IV SCH ×2 (01:30→15:00)
[2018-11-20] MEDS: traMADol HCl 50 MG TAB PO PRN ×2 (05:10→10:31)
[2018-11-20] MEDS: HumaLOG 300 UNITS/3 ML VIAL SC PRN (05:47)
[2018-11-20 05:57] LABS: Anion Gap 12 mmol/L (10-20); BUN (Urea Nitrogen) 8 mg/dL (9.8-20.1); Calc. Creatinine Clearance 134 mL/min (70-130); Calcium 8.5 mg/dL (7.8-10.44); Carbon Dioxide 24 mmol/L (22-29); Chloride 104 mmol/L (98-107); Estimated GFR-MDRD Greater than 90; Glucose 146 mg/dL (70-105); Sodium 137 mmol/L (136-145)
[2018-11-20 06:00] LABS: Potassium 2.8 mmol/L (3.5-5.1)
[2018-11-20] MEDS: Famotidine/PF 20 mg/2ml Vial SLOW IVP SCH ×2 (08:00→21:27)
[2018-11-20] MEDS: Cefepime 1 GM in Sodium Chloride 0.9% 100 ML IVPB SCH ×2 (08:01→21:27)
[2018-11-20] MEDS: Potassium Chloride 20 MEQ TAB PO PRN (08:01)
[2018-11-20] MEDS: Norepinephrine 8 MG/0.9% NS 250 ML IVPB SCH (09:20)
--- NOTE | 2018-11-20 10:14 | PRG ---
DATE OF SERVICE: 11/20/2018 SUBJECTIVE: The patient is a 58-year-old female, hospital day #12 and postoperative day #10, status post clipping of a ruptured left PCOM aneurysm and a left MCA aneurysm. Yesterday, she required transfer back to the ICU after worsening delirium, was transferred to the floor. She was also found to have slight hyponatremia at 133 and her 1.5 NS was increased to 175 an hour. Since her transfer back to the ICU, she has improved significantly. She is much less confused at this time. Her sodium is now normal, and I have decreased her fluids back to 100 mL per hour. She did have hypokalemia at 2.7 this morning. OBJECTIVE: NEUROLOGIC: My exam, this morning, the patient is awake and oriented x3, in no acute distress. Her pupils are equal and reactive to light. Her extraocular movements are intact. She has no focal neurologic deficits appreciated on my exam. PLAN: We will plan to continue to monitor her in the ICU. We will continue her 1.5 NS at 100 mL per hour. Her potassium has also been replaced, and we will continue to monitor this with rechecks of her labs. I anticipate she will remain with us in the ICU throughout the weekend. Job ID: [id number]
[2018-11-20] MEDS ORDERED: Bisacodyl 10 MG SUPP PR PRN (10:34)
--- NOTE | 2018-11-20 10:58 | PRG ---
DATE OF SERVICE: 11/20/2018 SERVICE: Pulmonary Medicine. INTERVAL HISTORY: The patient is doing fine from respiratory standpoint. Her mentation is improved significantly with elevated blood pressure, and improvement in sodium. She has no complaints of chills, nausea, vomiting, or fevers. There has been no overnight events. She has not had a bowel movement in several days. Otherwise, she is actually doing quite well. PHYSICAL EXAMINATION: VITAL SIGNS: Afebrile, pulse 80, blood pressure 114/78, respirations 26, and saturation 99% on room air. GENERAL: The patient is awake and alert, in no apparent distress. LUNGS: Excellent air entry. No prolonged expiratory phase or wheezing is appreciated. HEART: Normal rate, regular. ABDOMEN: Soft, nontender, and nondistended. Bowel sounds are positive. MUSCULOSKELETAL: No cyanosis or clubbing. No pitting in bilateral lower extremities. NEUROLOGIC: Grossly nonfocal. LABORATORY DATA: Sodium 137, potassium 2.8. Basic metabolic profile is otherwise unremarkable. Blood cultures x2 are negative. IMAGING: CT of the [place] of [place] demonstrates status post clipping of the left MCA aneurysm. Contrast opacification at the branch of the left MCA. Interval development of a small acute infarction in the left MCA territory at left frontotemporal lateral junction. Left inferior frontal and left superior frontal small infarctions, recent interval change. ASSESSMENT: 1. Subarachnoid hemorrhage. 2. Hyponatremia. 3. Vasospasm, likely recurrent. DISCUSSION AND PLAN: We will continue her hypertonic fluid. I will replace the potassium. She got 40 so far and we will give her additional 80. I will recheck a level tomorrow morning. Dulcolax will be scheduled to be used on a p.r.n. basis. Pulmonary/Critical Care will continue to follow along as the patient will need to remain in the ICU. We will wean pressors as tolerated over the next 24 to 48 hours. Job ID: [id number]
[2018-11-20] MEDS: Potassium Chloride 20 MEQ TAB PO SCH ×2 (11:15→16:12)
[2018-11-20] MEDS: Morphine 2 MG/ML SYRINGE SLOW IVP PRN ×2 (12:48→19:20)
--- NOTE | 2018-11-20 14:42 | PDOC.PN ---
- Subjective Encounter Start Date: 11/20/18 Encounter Start Time: 14:40 Subjective: Mentation is improving. -: c/o headaches. -: No chest pain or fever - Objective Vital Signs & Weight: Vital Signs (12 hours) Temp Pulse Ox 11/20/18 12:00 100.8 F H 11/20/18 08:00 99 11/20/18 07:00 97.8 F 11/20/18 04:00 98.7 F Weight Admit Weight 168 lb Weight 171 lb 4.787 oz Most Recent Monitor Data Heart Rate from ECG 65 NIBP 183/83 NIBP BP-Mean 116 Respiration from ECG 21 SpO2 96 I&O: 11/19/18 11/20/18 11/21/18 06:59 06:59 06:59 Intake Total 3493 3351 750 Output Total 8255 5180 1045 [facility] -[phone] Result Diagrams: 11/19/18 08:28 11/20/18 04:35 Phys Exam - Physical Examination HEENT: moist MMs Neck: supple Respiratory: no wheezing, no rhonchi, clear to auscultation bilateral Cardiovascular: RRR systolic murmur noted Gastrointestinal: soft, non-tender, no distention, positive bowel sounds Musculoskeletal: no edema, pulses present conversational when awake. moving all limbs Dx/Plan (1) Hypokalemia Code(s): E87.6 - HYPOKALEMIA Status: Acute Comment: replacing (2) Hyponatremia Code(s): E87.1 - HYPO-OSMOLALITY AND HYPONATREMIA Status: Acute (3) Acute metabolic encephalopathy Code(s): G93.41 - METABOLIC ENCEPHALOPATHY Status: Acute Comment: May be due to poor perfusion due to soft BP and cerebral vasospasm. Improved with BP 140-180 and continuation of nimodipine. (4) HTN (hypertension) Code(s): I10 - ESSENTIAL (PRIMARY) HYPERTENSION Status: Acute Qualifiers: Hypertension type: essential hypertension Qualified Code(s): I10 - Essential (primary) hypertension Comment: BP soft hence started on levophed. (5) SAH (subarachnoid hemorrhage) Code(s): I60.9 - NONTRAUMATIC SUBARACHNOID HEMORRHAGE, UNSPECIFIED Status: Acute Comment: due to aneurismal rupture, s/p clipping Left PCOM and Left MCA aneurysms (6) Intracranial aneurysm Code(s): I67.1 - CEREBRAL ANEURYSM, NONRUPTURED Status: Resolved (7) Diabetes mellitus Code(s): E11.9 - TYPE 2 DIABETES MELLITUS WITHOUT COMPLICATIONS Status: Acute - Plan Replete serum potassium. Get serum magnesium and replete as needed -: Continue other treatments. -: Analgesic as needed for headache. -: Continue supportive care in the ICU -: Monitor electrolytes and replete as needed * .
[2018-11-20 16:23] LABS: Sodium 136 mmol/L (136-145)
[2018-11-21] MEDS: Norepinephrine 8 MG/0.9% NS 250 ML IVPB SCH ×2 (01:33→23:17)
[2018-11-21] MEDS: SODIUM CHLORIDE IV SCH ×3 (01:33→20:33)
[2018-11-21] MEDS: STERILE WATER IV SCH ×3 (01:33→20:33)
[2018-11-21] MEDS: niMODipine 30 MG CAP PO SCH ×6 (01:34→20:34)
[2018-11-21] MEDS: Morphine 2 MG/ML SYRINGE SLOW IVP PRN ×4 (02:20→23:21)
[2018-11-21 05:58] LABS: Anion Gap 12 mmol/L (10-20); BUN (Urea Nitrogen) 7 mg/dL (9.8-20.1); Calc. Creatinine Clearance 133 mL/min (70-130); Calcium 8.7 mg/dL (7.8-10.44); Carbon Dioxide 24 mmol/L (22-29); Chloride 102 mmol/L (98-107); Estimated GFR-MDRD Greater than 90; Glucose 144 mg/dL (70-105); Potassium 3.4 mmol/L (3.5-5.1); Sodium 135 mmol/L (136-145)
[2018-11-21] MEDS: traMADol HCl 50 MG TAB PO PRN (07:45)
[2018-11-21] MEDS ORDERED: Potassium Chloride 20 MEQ TAB PO SCH (08:30)
[2018-11-21] MEDS: Potassium Chloride 20 MEQ TAB PO PRN (09:17)
[2018-11-21] MEDS: Cefepime 1 GM in Sodium Chloride 0.9% 100 ML IVPB SCH ×2 (09:18→20:34)
[2018-11-21] MEDS: Famotidine/PF 20 mg/2ml Vial SLOW IVP SCH ×2 (09:18→20:33)
--- NOTE | 2018-11-21 09:47 | PRG ---
DATE OF SERVICE: 11/21/2018 The patient is alert and appropriate. She is fully interactive and moves all 4s. She is verbally interactive, although her is acting as a food selector. She remains on pressors and her blood pressure has been elevated as desired. There were transient drops with amlodipine, but not substantially so. Her sodium yesterday was 136 and a sodium this morning is pending. We will continue with hyperosmolar and hyperdynamic treatment through the weekend, at which time, Dr. Cifuentes will consider weaning these. Job ID: [id number]
--- NOTE | 2018-11-21 09:51 | PRG ---
DATE OF SERVICE: 11/21/2018 SERVICE: Pulmonary Medicine. INTERVAL HISTORY: The patient is doing really well from mentation standpoint. Last night, she got an amlodipine. It dropped her blood pressures down to the 80s and we had to go up on the Levophed ever so slightly. Denies any current chest pain, fevers, or chills. Otherwise, there are no mentation issues overnight. PHYSICAL EXAMINATION: VITAL SIGNS: Afebrile with a T-max of 100.8 at noon yesterday, pulse 66, blood pressure 143/63, respirations 22, and saturation 97% on room air. GENERAL: The patient is awake and alert, in no apparent distress. LUNGS: Decent air entry without any prolonged expiratory phase or wheezing. HEART: Normal rate, regular. ABDOMEN: Soft, nontender, and nondistended. Bowel sounds are positive. MUSCULOSKELETAL: No cyanosis or clubbing. There is no pitting in bilateral lower extremities. NEUROLOGIC: Grossly nonfocal. LABORATORY DATA: Sodium 135 and roughly stable, potassium 3.4. Basic metabolic profile is otherwise unremarkable. Magnesium 1.9. Blood culture x2 are unremarkable. ASSESSMENT: 1. Subarachnoid hemorrhage. 2. Status post aneurysmal clipping. 3. Vasospasm. 4. Hyponatremia. DISCUSSION AND PLAN: We will continue our hypertonic fluid. I will replace potassium today. We will wean away pressors as tolerated. She requires amlodipine. Whenever she gets a dose, occasionally she will drop blood pressure and develop mentation issues. We will encourage a little bit of fluid today. Obviously, this will not be a free water type of a scenario. She will need to remain in the ICU because she is on 2 medicines requiring intensive monitoring. Job ID: [id number]
[2018-11-21] MEDS: HumaLOG 300 UNITS/3 ML VIAL SC PRN (10:19)
[2018-11-21] MEDS: Acetaminophen 325 MG TAB PO PRN (13:33)
--- NOTE | 2018-11-21 13:46 | PDOC.PN ---
- Subjective Encounter Start Date: 11/21/18 Encounter Start Time: 13:44 Subjective: Had hypotension last following amlodipine associated with AMS -: Feeling better. Still c/o righgt sided severe headache. -: No fever, chest pain. - Objective Vital Signs & Weight: Vital Signs (12 hours) Temp Pulse Ox 11/21/18 12:00 99.4 F 98 11/21/18 08:00 97.7 F 11/21/18 07:50 98 11/21/18 04:00 98.0 F Weight Admit Weight 168 lb Weight 162 lb 0.636 oz Most Recent Monitor Data Heart Rate from ECG 87 NIBP 148/68 NIBP BP-Mean 94 Respiration from ECG 23 SpO2 98 I&O: 11/20/18 11/21/18 11/22/18 06:59 06:59 06:59 Intake Total 3351 2679 1320 Output Total 5170 3615 1570 Balance -1829 -886 -250 Result Diagrams: 11/19/18 08:28 11/21/18 05:22 Additional Labs: Accuchecks 11/20/18 11/20/18 11/20/18 21:41 17:31 12:30 POC Glucose 144 H 133 H 131 H 11/20/18 11/19/18 11/19/18 05:46 20:33 17:04 POC Glucose 176 H 132 H 137 H 11/19/18 10:57 POC Glucose 159 H Phys Exam - Physical Examination acutely ill looking, afebrile, fatigued HEENT: PERRLA, moist MMs Neck: supple Respiratory: no wheezing fair air entry b ilaterally Cardiovascular: RRR Gastrointestinal: soft, no distention, positive bowel sounds Musculoskeletal: no edema, pulses present Neurological: moves all 4 limbs Psychiatric: A&O x 3 Dx/Plan (1) Hypokalemia Code(s): E87.6 - HYPOKALEMIA Status: Acute Comment: Persistent. (2) Hyponatremia Code(s): E87.1 - HYPO-OSMOLALITY AND HYPONATREMIA Status: Acute Comment: Resolved. (3) Acute metabolic encephalopathy Code(s): G93.41 - METABOLIC ENCEPHALOPATHY Status: Acute Comment: Due to poor perfusion due to soft BP and cerebral vasospasm. Improved with BP 140-180 and continuation of nimodipine. (4) HTN (hypertension) Code(s): I10 - ESSENTIAL (PRIMARY) HYPERTENSION Status: Acute Qualifiers: Hypertension type: essential hypertension Qualified Code(s): I10 - Essential (primary) hypertension Comment: BP soft hence started on levophed. (5) SAH (subarachnoid hemorrhage) Code(s): I60.9 - NONTRAUMATIC SUBARACHNOID HEMORRHAGE, UNSPECIFIED Status: Acute Comment: due to aneurismal rupture, s/p clipping Left PCOM and Left MCA aneurysms (6) Intracranial aneurysm Code(s): I67.1 - CEREBRAL ANEURYSM, NONRUPTURED Status: Resolved Comment: s/ p clipping (7) Diabetes mellitus Code(s): E11.9 - TYPE 2 DIABETES MELLITUS WITHOUT COMPLICATIONS Status: Acute Comment: Glycemic control acceptable. - Plan Continue levophed and nimodipine as well as hyperton ic solution. -: Analgesic as needed -: Continue other treatments and supportice care in the ICU -: Replete serum potassium. * .
[2018-11-21 16:25] LABS: Sodium 134 mmol/L (136-145)
[2018-11-22] MEDS: niMODipine 30 MG CAP PO SCH ×2 (01:11→05:02)
[2018-11-22] MEDS: Morphine 2 MG/ML SYRINGE SLOW IVP PRN ×2 (03:33→22:58)
[2018-11-22 05:31] LABS: #Basophils 0.1 thou/uL (0.0-0.2); #Eosinphils 0.3 thou/uL (0.0-0.7); #Lymphocytes 2.4 thou/uL (1.20-3.40); #Monocytes 0.9 thou/uL (0.11-0.59); #Neutrophils 7.8 thou/uL (1.40-6.50); %Basophils 0.8 % (0.0-1.0); %Eosinophils 2.9 % (0.0-10.0); %Lymphocytes 20.7 % (21.0-51.0); %Monocytes 8.1 % (0.0-10.0); %Neutrophils 67.5 % (42.0-75.0); Hemoglobin 10.8 g/dL (12.0-16.0); Mean Corpuscular HGB CONC 33.4 g/dL (32.0-36.0); Mean Corpuscular Hemoglobin 30.7 pg (27.0-31.0); Mean Platelet Volume 6.9 fL (7.4-10.4); Platelet Count 459 thou/uL (130-400); Red Blood Cell (RBC) Count 3.52 mill/uL (4.20-5.40); White Blood Cell (WBC) Count 11.6 thou/uL (4.8-10.8)
[2018-11-22 06:00] LABS: Anion Gap 13 mmol/L (10-20); BUN (Urea Nitrogen) 7 mg/dL (9.8-20.1); Calc. Creatinine Clearance 123 mL/min (70-130); Calcium 9.1 mg/dL (7.8-10.44); Carbon Dioxide 24 mmol/L (22-29); Chloride 102 mmol/L (98-107); Estimated GFR-MDRD Greater than 90; Glucose 159 mg/dL (70-105); Potassium 3.9 mmol/L (3.5-5.1); Sodium 135 mmol/L (136-145)
[2018-11-22] MEDS: STERILE WATER IV SCH ×2 (08:40→13:00)
[2018-11-22] MEDS: SODIUM CHLORIDE IV SCH ×2 (08:40→13:00)
[2018-11-22] MEDS: Cefepime 1 GM in Sodium Chloride 0.9% 100 ML IVPB SCH ×2 (08:59→20:09)
[2018-11-22] MEDS: Acetaminophen 325 MG TAB PO PRN ×3 (09:01→21:43)
[2018-11-22] MEDS: Famotidine/PF 20 mg/2ml Vial SLOW IVP SCH ×2 (09:01→20:15)
--- NOTE | 2018-11-22 09:01 | PRG ---
DATE OF SERVICE: 11/22/2018 SUBJECTIVE: Ms. Mota remains in the CCU. She complains of a headache. She continues to have labile blood pressures that are exacerbated by the Nimotop. She is also on a Levophed drip to help control some of that lability. OBJECTIVE: VITAL SIGNS: On exam, her temperature is 98.0; pulse 72; blood pressure 123/51, currently on Levophed at 50 mcg/minute; O2 saturation 97%. GENERAL: Currently, she is sitting up in a chair. HEENT: Remarkable for the staple line along the left worship area. NECK: No JVD. CHEST: Clear to auscultation without wheezing. CARDIAC: S1 and S2, regular. ABDOMEN: Soft. EXTREMITIES: No edema. LABORATORY DATA: White blood cell count 11.6, hematocrit 32.4, and platelet count 459. Sodium 135, potassium 3.9, chloride 102, CO2 of 24, BUN 7, creatinine 0.5, and glucose 159. Her IV fluids are 1.5% normal saline at 100 mL/hours. ASSESSMENT: 1. Status post aneurysmal clipping. 2. Cerebral vasospasms with blood pressure lability secondary to Nimotop. PLAN: 1. I will cut the Nimotop dose in half and try to spread this out every 6 hours to every 4. This will be in hopes of getting the Levophed off. 2. Continue to monitor labs. Job ID: [id number]
[2018-11-22] MEDS: Norepinephrine 8 MG/0.9% NS 250 ML IVPB SCH ×2 (09:02→20:16)
[2018-11-22] MEDS ORDERED: SODIUM CHLORIDE IV SCH (09:30)
[2018-11-22] MEDS ORDERED: STERILE WATER IV SCH (09:30)
--- NOTE | 2018-11-22 09:42 | PRG ---
DATE OF SERVICE: 11/22/2018 This is Greg Chilel PA-C dictating a report for Maxi Cifuentes MD. Ms. Mota is now post bleed day #14, postoperative day 12, having undergone left FURNITURE MANAGER and MCA aneurysm clipping. She had a good weekend. She does have some headache today. She remains on Levophed for target systolic blood pressure of 140-180 and is continuing to receive her nimodipine. Confusion seems to be much improved over the weekend. She remains afebrile and her blood culture preliminarily is negative, though remains on cefepime. Her sodium is slightly improved at 135 this morning and her potassium is at good level. White blood cell count is 11, slightly elevated from 10.9 from yesterday. At this time, neurologically, she follows commands equally and states she is doing okay today. At this time, we will continue to monitor and unfortunately may need to leave her on the unit until she is able to be weaned off the Levophed. Her family was updated at bedside. Please call with any changes in the patient's neurologic status. Job ID: [id number]
[2018-11-22] MEDS: HumaLOG 300 UNITS/3 ML VIAL SC PRN (11:56)
[2018-11-22] MEDS ORDERED: niMODipine 30 MG CAP PO SCH (12:00)
[2018-11-22] MEDS: traMADol HCl 50 MG TAB PO PRN (15:11)
[2018-11-22 16:24] LABS: Sodium 138 mmol/L (136-145)
[2018-11-22 16:52] LABS: Actual Bicarbonate (HCO3a) 21.4 mEq/L (22-28); Analyzer IN Cardio OR; Base Excess (BEa) -2.4 mEq/L (-2.0 to +3.0); CO2 Tension 33.8 mmHg (35.0-45.0); Calcium, Ionized 1.06 mmol/L (1.12-1.30); Carboxyhemoglobin (COHb) 0.4 gm% (0.0-3.0); Hemoglobin (Hb) 12.6 g/dL (12.0-16.0); O2 Tension (PaO2) 323.9 mmHg (> 80.0); Potassium - ABG Lab 3.09 mmol/L (3.70-5.30); pH, Arterial 7.42 (7.35-7.45)
[2018-11-22 16:52] LABS: Analyzer IN Cardio OR; Base Excess (BEa) -5.4 mEq/L (-2.0 to +3.0); Calcium, Ionized 1.04 mmol/L (1.12-1.30); Carboxyhemoglobin (COHb) 0.3 gm% (0.0-3.0); Hemoglobin (Hb) 10.7 g/dL (12.0-16.0); O2 Tension (PaO2) 379.8 mmHg (> 80.0); Potassium - ABG Lab 3.91 mmol/L (3.70-5.30); pH, Arterial 7.38 (7.35-7.45)
[2018-11-22 17:10] LABS: Puncture Site ALINE
[2018-11-22 17:10] LABS: Puncture Site ALINE
--- NOTE | 2018-11-22 17:16 | PDOC.PN ---
- Subjective Encounter Start Date: 11/22/18 Encounter Start Time: 13:00 Subjective: awake, moves all extremities -: family at bedside -: no specific weakness or dizziness - Objective MAR Reviewed: Yes Vital Signs & Weight: Vital Signs (12 hours) Temp Pulse Pulse BP BP Pulse Ox Pulse Ox 11/22/18 16:00 97.6 F 11/22/18 12:00 98.4 F 11/22/18 10:30 68 160/85 H 100 11/22/18 09:05 63 81 156/74 H 153/75 H 99 99 11/22/18 08:00 98.5 F Weight Admit Weight 168 lb Weight 160 lb 11.472 oz Most Recent Monitor Data Heart Rate from ECG 57 NIBP 165/83 NIBP BP-Mean 110 Respiration from ECG 21 SpO2 99 I&O: 11/21/18 11/22/18 11/23/18 06:59 06:59 06:59 Intake Total 2679 5030 813 Output Total 3564 3848 2400 Balance -880 162 -4813 Result Diagrams: 11/22/18 04:45 11/22/18 16:08 Additional Labs: Accuchecks 11/22/18 11/21/18 11/21/18 11:43 22:22 16:03 POC Glucose 185 H 146 H 161 H 11/21/18 11/21/18 12:08 10:11 POC Glucose 144 H 174 H Phys Exam - Physical Examination HEENT: PERRLA, moist MMs Neck: no JVD, supple Respiratory: no wheezing, no rales Cardiovascular: RRR, no significant murmur Gastrointestinal: soft, non-tender, positive bowel sounds Musculoskeletal: no edema, pulses present Neurological: non-focal, moves all 4 limbs Psychiatric: A&O x 3 Dx/Plan (1) SAH (subarachnoid hemorrhage) Code(s): I60.9 - NONTRAUMATIC SUBARACHNOID HEMORRHAGE, UNSPECIFIED Status: Acute Comment: due to aneurismal rupture, s/p clipping Left PCOM and Left MCA aneurysms (2) Intracranial aneurysm Code(s): I67.1 - CEREBRAL ANEURYSM, NONRUPTURED Status: Resolved Comment: s/ p clipping (3) HTN (hypertension) Code(s): I10 - ESSENTIAL (PRIMARY) HYPERTENSION Status: Acute Qualifiers: Hypertension type: essential hypertension Qualified Code(s): I10 - Essential (primary) hypertension Comment: on levophed now. - Plan is off nimodipine -: electrolytes stable -: still on norepinephrine for pressure support -: neurologically no motor deficits clinically -: will f/u * . Review of Systems - Medications/Allergies Allergies/Adverse Reactions: Allergies Allergy/AdvReac Type Severity Reaction Status Date / Time No Known Allergies Allergy Verified 09/19/13 17:25 Medications: Current Medications Acetaminophen (Tylenol) 650 mg PO Q4H PRN PRN Reason: Headache/Fever or Mild Pain Last Admin: 11/22/18 15:11 Dose: 650 mg Acetaminophen (Tylenol) 650 mg [place] Q4H PRN PRN Reason: Headache/Fever or Pain Al Hydroxide/Mg Hydroxide (Maalox) 30 ml PO Q6H PRN PRN Reason: Indigestion Bisacodyl (Dulcolax) 10 mg [place] DAILYPRN PRN PRN Reason: Constipation Last Admin: 11/20/18 16:12 Dose: 10 mg Diphenhydramine HCl (Benadryl) 50 mg PO Q6H PRN PRN Reason: Itching or Insomnia Last Admin: 11/18/18 22:40 Dose: 50 mg Docusate Sodium (Colace) 100 mg PO BIDPRN PRN PRN Reason: Constipation Last Admin: 11/20/18 10:31 Dose: 100 mg Famotidine (Pepcid) 20 mg SLOW IVP Q12HR ARIEL Last Admin: 11/22/18 09:01 Dose: 20 mg Glucagon (Glucagon) 1 mg IM PRN PRN PRN Reason: Hypoglycemia Hydralazine HCl (Apresoline) 5 mg SLOW IVP Q15M PRN PRN Reason: SBP > 190 Potassium Chloride 40 meq/ (Sodium Chloride) 270 mls @ 135 mls/hr IVPB ASDIR PRN PRN Reason: FOR SERUM K+ 2.5 - 3.5 Last Admin: 11/09/18 16:25 Dose: 270 mls Potassium Chloride 40 meq/ (Device) 100 mls @ 50 mls/hr IVPB ASDIR PRN PRN Reason: FOR SERUM K+ 2.5 - 3.5 Last Admin: 11/18/18 05:07 Dose: 100 mls Magnesium Sulfate 1 gm/ Sodium (Chloride) 102 mls @ 102 mls/hr IV PRN PRN PRN Reason: MAG LEVEL 1.4 - 2.0 Last Admin: 11/09/18 16:25 Dose: 102 mls Magnesium Sulfate 2 gm/ Device 50 mls @ 50 mls/hr IVPB ASDIR PRN PRN Reason: MAGNESIUM < 1.4 Potassium Phosphate 9 mmol/ (Sodium Chloride) 103 mls @ 25.75 mls/hr IVPB ASDIR PRN PRN Reason: Phosphate 1.0-1.8 Potassium Phosphate 12 mmol/ (Sodium Chloride) 254 mls @ 63.5 mls/hr IV ASDIR PRN PRN Reason: Serum phosphate 0.5-0.9 Potassium Phosphate 15 mmol/ (Sodium Chloride) 255 mls @ 63.75 mls/hr IV ASDIR PRN PRN Reason: Serum Phos < 0.5 Promethazine HCl 6.25 mg/ (Sodium Chloride) 50.25 mls @ 201 mls/hr IVPB Q6H PRN PRN Reason: Nausea Last Admin: 11/11/18 21:00 Dose: 50.25 mls Cefepime HCl 1 gm/ Sodium (Chloride) 100 mls @ 200 mls/hr IVPB Q12HR ARIEL Last Admin: 11/22/18 08:59 Dose: 100 mls Norepinephrine Bitartrate (Levophed) 250 mls @ 0 mls/hr IVPB INF ARIEL; Protocol Last Admin: 11/22/18 09:02 Dose: 250 mls Sodium Chloride 256.66 meq/ (Sterile Water) 1,000.165 mls @ 80 mls/hr IV .[id number] ARIEL Last Admin: 11/22/18 13:00 Dose: 1,000.165 mls Insulin Human Lispro (Humalog) 0 units SC .MODERATE SLIDING SC PRN PRN Reason: Moderate Correctional Scale Last Admin: 11/22/18 11:56 Dose: 2 unit Labetalol HCl (Normodyne) 10 mg SLOW IVP Q15M PRN PRN Reason: SBP > 190 Magnesium Oxide (Magnesium Oxide) 400 mg PO BIDPRN PRN PRN Reason: FOR SERUM MAG 1.4 - 2.0 Magnesium Oxide (Magnesium Oxide) 800 mg PO PRN PRN PRN Reason: FOR SERUM MAG < 1.4 Melatonin (Melatonin) 3 mg PO HS PRN PRN Reason: Insomnia Last Admin: 11/18/18 00:17 Dose: 3 mg Miscellaneous Medication (Phos-Nak) 1 pkt PO TIDPRN PRN PRN Reason: FOR PHOS LEVEL 1.0 - 1.8 Miscellaneous Medication (Phos-Nak) 2 pkt PO TIDPRN PRN PRN Reason: FOR PHOS LEVEL 0.5 - 1.0 Morphine Sulfate (Morphine) 2 mg SLOW IVP Q4H PRN PRN Reason: Pain Last Admin: 11/22/18 03:33 Dose: 2 mg Ccu Electrolyte (Replacement Protocol) 0 each FS PRN PRN PRN Reason: FOR ELECTROLYTE REPLACEMENT No Hypotonic Solns 0 each FS .NO HYPOTONIC SOLNS ARIEL Ondansetron HCl (Zofran) 4 mg IVP Q6H PRN PRN Reason: Nausea/Vomiting Last Admin: 11/18/18 16:06 Dose: 4 mg Potassium Chloride (K-Dur) 40 meq PO ASDIR PRN PRN Reason: FOR SERUM K+ 2.5 - 3.5 Last Admin: 11/21/18 09:17 Dose: 40 meq Potassium Chloride (Klor-Con) 40 meq PER TUBE ASDIR PRN PRN Reason: FOR SERUM K+ 2.5-3.5 Promethazine HCl (Phenergan) 6.25 mg SLOW IVP Q6H PRN PRN Reason: Nausea/Vomiting Last Admin: 11/09/18 17:50 Dose: 6.25 mg Sodium Chloride (Flush - Normal Saline) 10 ml IVF Q12HR ARIEL Last Admin: 11/22/18 09:10 Dose: Not Given Sodium Chloride (Flush - Normal Saline) 10 ml IVF PRN PRN PRN Reason: Saline Flush Tramadol HCl (Ultram) 50 mg PO Q6H PRN PRN Reason: Pain Last Admin: 11/22/18 15:11 Dose: 50 mg
[2018-11-22] MEDS: Melatonin 3 MG TAB PO PRN (20:15)
[2018-11-23] MEDS: STERILE WATER IV SCH (02:00)
[2018-11-23] MEDS: SODIUM CHLORIDE IV SCH (02:00)
[2018-11-23 05:04] VITALS: BMI 29.2
[2018-11-23] MEDS: Morphine 2 MG/ML SYRINGE SLOW IVP PRN (05:34)
[2018-11-23 05:51] LABS: Anion Gap 16 mmol/L (10-20); BUN (Urea Nitrogen) 7 mg/dL (9.8-20.1); Calc. Creatinine Clearance 126 mL/min (70-130); Calcium 9.2 mg/dL (7.8-10.44); Carbon Dioxide 23 mmol/L (22-29); Chloride 105 mmol/L (98-107); Estimated GFR-MDRD Greater than 90; Glucose 146 mg/dL (70-105); Potassium 3.6 mmol/L (3.5-5.1); Sodium 140 mmol/L (136-145)
[2018-11-23] MEDS: HumaLOG 300 UNITS/3 ML VIAL SC PRN (06:21)
[2018-11-23 07:52] LABS: #Basophils 0.1 thou/uL (0.0-0.2); #Eosinphils 0.2 thou/uL (0.0-0.7); #Lymphocytes 1.7 thou/uL (1.20-3.40); #Monocytes 0.6 thou/uL (0.11-0.59); #Neutrophils 4.9 thou/uL (1.40-6.50); %Basophils 0.8 % (0.0-1.0); %Eosinophils 2.6 % (0.0-10.0); %Lymphocytes 22.9 % (21.0-51.0); %Monocytes 7.5 % (0.0-10.0); %Neutrophils 66.2 % (42.0-75.0); Hemoglobin 10.4 g/dL (12.0-16.0); Mean Corpuscular Hemoglobin 30.2 pg (27.0-31.0); Mean Corpuscular Volume 91.4 fL (78.0-98.0); Mean Platelet Volume 6.5 fL (7.4-10.4); Platelet Count 407 thou/uL (130-400); Red Blood Cell (RBC) Count 3.46 mill/uL (4.20-5.40); White Blood Cell (WBC) Count 7.4 thou/uL (4.8-10.8)
[2018-11-23] MEDS: Cefepime 1 GM in Sodium Chloride 0.9% 100 ML IVPB SCH ×2 (08:33→19:56)
[2018-11-23] MEDS: Famotidine/PF 20 mg/2ml Vial SLOW IVP SCH ×2 (08:33→19:56)
[2018-11-23] MEDS: Acetaminophen 325 MG TAB PO PRN ×3 (08:36→23:43)
--- NOTE | 2018-11-23 08:45 | ULT ---
FBilateral lower extremity venous Doppler ultrasound: 11/23/2018 COMPARISON: None HISTORY: Impaired mobility, increased risk for developing DVT, assess for DVT TECHNIQUE: Multiplanar grayscale sonographic imaging of the venous structures of the bilateral lower extremities obtained with color flow and spectral analysis FINDINGS:Bilateral common femoral vein, greater saphenous vein, profunda femoral vein, femoral vein, popliteal vein, and posterior tibial vein appear patent. Normal blood flow, augmentation, and taylor corby within the deep venous system. No evidence for DVT. IMPRESSION: No evidence for deep venous thrombosis of either lower extremity.
--- NOTE | 2018-11-23 08:59 | PRG ---
DATE OF SERVICE: 11/23/2018 This is Greg Chilel PA-C dictating a report for Maxi Cifuentes MD. Ms. Mota is now hospital day #15 and postoperative day #13, status post ruptured aneurysm with clipping of left PCOM and MCA aneurysms. The patient is overall slowly improving. She has had less confusion according to her daughter. She has had some headache. Otherwise, we have discontinued the nimodipine and today we have discontinued the Levophed without a target blood pressure to see if we can transition her out of the unit in the next day or two. I have also changed her fluids from 1.5 saline to normal saline at 100 mL an hour. Her sodium today is 140, although her platelets were high yesterday. They are trending downward. Her white blood cell count is also trending downward. She follows commands equally in all 4 extremities. She is awake and alert. Our plan today is to mobilize and I will follow up on bilateral lower extremity ultrasound given her impaired mobility. She remains on cefepime as well and her blood cultures preliminary remain negative. Please call with any changes in the patient's neurologic status. Otherwise, we will hope to transition her out of the unit tomorrow. Job ID: [id number]
[2018-11-23] MEDS: Ondansetron PF 4 MG/2 ML Vial IVP PRN (09:10)
[2018-11-23] MEDS: Sodium Chloride 0.45% 1,000 ML IV SCH ×3 (09:12→19:57)
--- NOTE | 2018-11-23 09:12 | PRG ---
DATE OF SERVICE: 11/23/2018 SUBJECTIVE: Ms. Mota is complaining of a headache. Otherwise, she has been doing well. Her family says her mentation is normal. OBJECTIVE: VITAL SIGNS: Temperature 99.2, pulse 63, blood pressure 150/72, O2 saturation 98%. She is currently on Levophed at 10 mcg/minute. Intake for the last 24 hours has been 3913, output 4440. Weight 164 pounds. HEENT: She has scalp sonali present in the left shinto area. NECK: No JVD. CHEST: Clear. CARDIAC: S1, S2. Regular. ABDOMEN: Soft, nontender. LABORATORY DATA: Sodium 140, potassium 3.6, BUN 7, creatinine , glucose 146. White blood cell count 7.4, hematocrit 31.6, and platelet count 407. ASSESSMENT: 1. Status post aneurysmal bleed. 2. Status post aneurysmal clippings. 3. Cerebral vasospasm. 4. Fever of unknown etiology. PLAN: 1. The patient will continue on the antibiotics through today and then probably discontinue. 2. Leave her in the ICU, see how she does off the Levophed and make sure she does have recurrence of the vasospasm symptoms. Job ID: [id number]
--- NOTE | 2018-11-23 15:49 | PDOC.PN ---
- Subjective Encounter Start Date: 11/23/18 Encounter Start Time: 11:20 Subjective: is sitting in chair, family at bedside -: feels better - Objective MAR Reviewed: Yes Vital Signs & Weight: Vital Signs (12 hours) Temp Pulse Pulse Pulse BP BP BP 11/23/18 12:00 99.2 F 11/23/18 10:30 91 80 86 97/61 109/48 L 101/45 L 11/23/18 07:01 11/23/18 07:00 99.2 F 11/23/18 04:00 98.8 F Pulse Ox Pulse Ox Pulse Ox Pulse Ox 11/23/18 12:00 11/23/18 10:30 95 96 98 11/23/18 07:01 98 11/23/18 07:00 11/23/18 04:00 Weight Admit Weight 168 lb Weight 164 lb 10.965 oz Most Recent Monitor Data Heart Rate from ECG 86 NIBP 94/39 NIBP BP-Mean 57 Respiration from ECG 17 SpO2 96 I&O: 11/22/18 11/23/18 11/24/18 06:59 06:59 06:59 Intake Total 5030 3913 360 Output Total 4790 4440 510 Balance 240 -527 -150 Result Diagrams: 11/23/18 07:40 11/23/18 04:54 Additional Labs: Accuchecks 11/22/18 11/22/18 21:11 17:14 POC Glucose 149 H 114 H Phys Exam - Physical Examination HEENT: PERRLA, moist MMs Neck: no JVD, supple Respiratory: no wheezing, no rales Cardiovascular: RRR, no significant murmur Gastrointestinal: soft, non-tender, positive bowel sounds Musculoskeletal: no edema, pulses present Neurological: non-focal, moves all 4 limbs Psychiatric: A&O x 3 Dx/Plan (1) SAH (subarachnoid hemorrhage) Code(s): I60.9 - NONTRAUMATIC SUBARACHNOID HEMORRHAGE, UNSPECIFIED Status: Acute Comment: due to aneurismal rupture, s/p clipping Left PCOM and Left MCA aneurysms (2) Intracranial aneurysm Code(s): I67.1 - CEREBRAL ANEURYSM, NONRUPTURED Status: Resolved Comment: s/ p clipping (3) HTN (hypertension) Code(s): I10 - ESSENTIAL (PRIMARY) HYPERTENSION Status: Acute Qualifiers: Hypertension type: essential hypertension Qualified Code(s): I10 - Essential (primary) hypertension - Plan hemo/neurostable -: is off levophed, sbp around 100 -: PT/OT to mobilize as tolerated -: usg venous doppler is -ve for dvt -: on cefepime till am * . Review of Systems - Medications/Allergies Allergies/Adverse Reactions: Allergies Allergy/AdvReac Type Severity Reaction Status Date / Time No Known Allergies Allergy Verified 09/19/13 17:25 Medications: Current Medications Acetaminophen (Tylenol) 650 mg PO Q4H PRN PRN Reason: Headache/Fever or Mild Pain Last Admin: 11/23/18 08:36 Dose: 650 mg Acetaminophen (Tylenol) 650 mg [place] Q4H PRN PRN Reason: Headache/Fever or Pain Al Hydroxide/Mg Hydroxide (Maalox) 30 ml PO Q6H PRN PRN Reason: Indigestion Bisacodyl (Dulcolax) 10 mg [place] DAILYPRN PRN PRN Reason: Constipation Last Admin: 11/20/18 16:12 Dose: 10 mg Diphenhydramine HCl (Benadryl) 50 mg PO Q6H PRN PRN Reason: Itching or Insomnia Last Admin: 11/18/18 22:40 Dose: 50 mg Docusate Sodium (Colace) 100 mg PO BIDPRN PRN PRN Reason: Constipation Last Admin: 11/20/18 10:31 Dose: 100 mg Famotidine (Pepcid) 20 mg SLOW IVP Q12HR ARIEL Last Admin: 11/23/18 08:33 Dose: 20 mg Glucagon (Glucagon) 1 mg IM PRN PRN PRN Reason: Hypoglycemia Hydralazine HCl (Apresoline) 5 mg SLOW IVP Q15M PRN PRN Reason: SBP > 190 Potassium Chloride 40 meq/ (Sodium Chloride) 270 mls @ 135 mls/hr IVPB ASDIR PRN PRN Reason: FOR SERUM K+ 2.5 - 3.5 Last Admin: 11/09/18 16:25 Dose: 270 mls Potassium Chloride 40 meq/ (Device) 100 mls @ 50 mls/hr IVPB ASDIR PRN PRN Reason: FOR SERUM K+ 2.5 - 3.5 Last Admin: 11/18/18 05:07 Dose: 100 mls Magnesium Sulfate 1 gm/ Sodium (Chloride) 102 mls @ 102 mls/hr IV PRN PRN PRN Reason: MAG LEVEL 1.4 - 2.0 Last Admin: 11/09/18 16:25 Dose: 102 mls Magnesium Sulfate 2 gm/ Device 50 mls @ 50 mls/hr IVPB ASDIR PRN PRN Reason: MAGNESIUM < 1.4 Potassium Phosphate 9 mmol/ (Sodium Chloride) 103 mls @ 25.75 mls/hr IVPB ASDIR PRN PRN Reason: Phosphate 1.0-1.8 Potassium Phosphate 12 mmol/ (Sodium Chloride) 254 mls @ 63.5 mls/hr IV ASDIR PRN PRN Reason: Serum phosphate 0.5-0.9 Potassium Phosphate 15 mmol/ (Sodium Chloride) 255 mls @ 63.75 mls/hr IV ASDIR PRN PRN Reason: Serum Phos < 0.5 Promethazine HCl 6.25 mg/ (Sodium Chloride) 50.25 mls @ 201 mls/hr IVPB Q6H PRN PRN Reason: Nausea Last Admin: 11/11/18 21:00 Dose: 50.25 mls Cefepime HCl 1 gm/ Sodium (Chloride) 100 mls @ 200 mls/hr IVPB Q12HR ARIEL Last Admin: 11/23/18 08:33 Dose: 100 mls Sodium Chloride (1/2 Normal Saline) 1,000 mls @ 100 mls/hr IV .Q10H ARIEL Last Admin: 11/23/18 09:12 Dose: 1,000 mls Insulin Human Lispro (Humalog) 0 units SC .MODERATE SLIDING SC PRN PRN Reason: Moderate Correctional Scale Last Admin: 11/23/18 06:21 Dose: 2 unit Labetalol HCl (Normodyne) 10 mg SLOW IVP Q15M PRN PRN Reason: SBP > 190 Magnesium Oxide (Magnesium Oxide) 400 mg PO BIDPRN PRN PRN Reason: FOR SERUM MAG 1.4 - 2.0 Magnesium Oxide (Magnesium Oxide) 800 mg PO PRN PRN PRN Reason: FOR SERUM MAG < 1.4 Melatonin (Melatonin) 3 mg PO HS PRN PRN Reason: Insomnia Last Admin: 11/22/18 20:15 Dose: 3 mg Miscellaneous Medication (Phos-Nak) 1 pkt PO TIDPRN PRN PRN Reason: FOR PHOS LEVEL 1.0 - 1.8 Miscellaneous Medication (Phos-Nak) 2 pkt PO TIDPRN PRN PRN Reason: FOR PHOS LEVEL 0.5 - 1.0 Morphine Sulfate (Morphine) 2 mg SLOW IVP Q4H PRN PRN Reason: Pain Last Admin: 11/23/18 05:34 Dose: 2 mg Ccu Electrolyte (Replacement Protocol) 0 each FS PRN PRN PRN Reason: FOR ELECTROLYTE REPLACEMENT No Hypotonic Solns 0 each FS .NO HYPOTONIC SOLNS ARIEL Ondansetron HCl (Zofran) 4 mg IVP Q6H PRN PRN Reason: Nausea/Vomiting Last Admin: 11/23/18 09:10 Dose: 4 mg Potassium Chloride (K-Dur) 40 meq PO ASDIR PRN PRN Reason: FOR SERUM K+ 2.5 - 3.5 Last Admin: 11/21/18 09:17 Dose: 40 meq Potassium Chloride (Klor-Con) 40 meq PER TUBE ASDIR PRN PRN Reason: FOR SERUM K+ 2.5-3.5 Promethazine HCl (Phenergan) 6.25 mg SLOW IVP Q6H PRN PRN Reason: Nausea/Vomiting Last Admin: 11/09/18 17:50 Dose: 6.25 mg Sodium Chloride (Flush - Normal Saline) 10 ml IVF Q12HR ARIEL Last Admin: 11/23/18 08:33 Dose: 10 ml Sodium Chloride (Flush - Normal Saline) 10 ml IVF PRN PRN PRN Reason: Saline Flush Tramadol HCl (Ultram) 50 mg PO Q6H PRN PRN Reason: Pain Last Admin: 11/22/18 15:11 Dose: 50 mg
[2018-11-23] MEDS: traMADol HCl 50 MG TAB PO PRN (17:15)
[2018-11-23] MEDS: Melatonin 3 MG TAB PO PRN (21:50)
[2018-11-24] MEDS: traMADol HCl 50 MG TAB PO PRN ×2 (02:05→20:16)
[2018-11-24] MEDS: Sodium Chloride 0.45% 1,000 ML IV SCH (05:15)
[2018-11-24 05:51] LABS: Anion Gap 12 mmol/L (10-20); BUN (Urea Nitrogen) 7 mg/dL (9.8-20.1); Calc. Creatinine Clearance 140 mL/min (70-130); Carbon Dioxide 25 mmol/L (22-29); Chloride 104 mmol/L (98-107); Estimated GFR-MDRD Greater than 90; Glucose 113 mg/dL (70-105); Potassium 3.8 mmol/L (3.5-5.1); Sodium 137 mmol/L (136-145)
[2018-11-24] MEDS: Acetaminophen 325 MG TAB PO PRN ×3 (07:31→20:16)
--- NOTE | 2018-11-24 09:17 | PRG ---
DATE OF SERVICE: 11/24/2018 SUBJECTIVE: The patient is up in a chair today. She is still having problems with headaches. Her blood pressures also been labile and systolics in the 90s this morning. Her family does not think she is quite as clear with the mentation this morning as she was yesterday. OBJECTIVE: VITAL SIGNS: Temperature 98.3, pulse 79, blood pressure 107/53. HEENT: Unremarkable, except for bandage. NECK: No JVD. CHEST: Clear. CARDIAC: S1 and S2, regular. ABDOMEN: Soft. LABORATORY DATA: Sodium 137, potassium 3.8, BUN 7, creatinine 0.5, glucose 113. ASSESSMENT: 1. Status post aneurysmal bleed. 2. Status post aneurysmal clipping. 3. Cerebral vasospasms. 4. Labile blood pressure. PLANS: 1. Start midodrine 5 mg t.i.d. to help the elevate blood pressure somewhat. 2. I would put her back on normal saline as opposed to half-normal saline as I do not want her sodium to get much lower than . Job ID: [id number]
[2018-11-24] MEDS: Sodium Chloride 0.9% 1,000 ML IV SCH ×2 (09:21→21:17)
[2018-11-24] MEDS: Famotidine 20 MG TAB PO SCH ×2 (09:21→20:16)
[2018-11-24] MEDS: Midodrine HCl 5 MG TAB PO SCH ×3 (10:40→20:17)
--- NOTE | 2018-11-24 10:43 | PRG ---
DATE OF SERVICE: 11/24/2018 SUBJECTIVE: Ms. Mota is 16 days out from her bleed and 14 days out from her surgical clipping. She is alert and in a bedside chair this morning. Her daughter translates for her. She is nonfocal. Remove her Lima catheter and hopefully plan for transfer to the floor. We can stop her pressors. Job ID: [id number]
--- NOTE | 2018-11-24 14:37 | PDOC.PN ---
- Subjective Encounter Start Date: 11/24/18 Encounter Start Time: 13:15 Subjective: awakens to touch, family at bedside -: has more headache today per daughter -: is moving all extremities - Objective MAR Reviewed: Yes Vital Signs & Weight: Vital Signs (12 hours) Temp Pulse Ox 11/24/18 11:00 98.5 F 11/24/18 08:00 100 11/24/18 07:00 98.3 F 11/24/18 03:00 98.0 F Weight Admit Weight 168 lb Weight 160 lb 7.944 oz Most Recent Monitor Data Heart Rate from ECG 82 NIBP 99/47 NIBP BP-Mean 64 Respiration from ECG 24 SpO2 96 I&O: 11/23/18 11/24/18 11/25/18 06:59 06:59 06:59 Intake Total 3913 3016 920 Output Total 4440 2375 1075 Balance -527 641 -155 Result Diagrams: 11/23/18 07:40 11/24/18 05:04 Additional Labs: Accuchecks 11/24/18 11/23/18 11/23/18 11:43 19:56 16:05 POC Glucose 149 H 147 H 137 H 11/23/18 11/23/18 11:05 06:17 POC Glucose 138 H 158 H Phys Exam - Physical Examination HEENT: PERRLA, moist MMs Neck: no JVD, supple Respiratory: no wheezing, no rales Cardiovascular: RRR, no significant murmur Gastrointestinal: soft, non-tender, positive bowel sounds Musculoskeletal: no edema, pulses present Neurological: non-focal, moves all 4 limbs Dx/Plan (1) SAH (subarachnoid hemorrhage) Code(s): I60.9 - NONTRAUMATIC SUBARACHNOID HEMORRHAGE, UNSPECIFIED Status: Acute Comment: due to aneurismal rupture, s/p clipping Left PCOM and Left MCA aneurysms (2) Intracranial aneurysm Code(s): I67.1 - CEREBRAL ANEURYSM, NONRUPTURED Status: Resolved Comment: s/ p clipping (3) HTN (hypertension) Code(s): I10 - ESSENTIAL (PRIMARY) HYPERTENSION Status: Acute Qualifiers: Hypertension type: essential hypertension Qualified Code(s): I10 - Essential (primary) hypertension (4) Physical deconditioning Code(s): R53.81 - OTHER MALAISE Status: Acute - Plan is on iv fluids -: midodrine to keep sbp >110 -: off antibiotics -: has amb a bit with PT yesterday -: encourage po intake * . Review of Systems - Medications/Allergies Allergies/Adverse Reactions: Allergies Allergy/AdvReac Type Severity Reaction Status Date / Time No Known Allergies Allergy Verified 09/19/13 17:25 Medications: Current Medications Acetaminophen (Tylenol) 650 mg PO Q4H PRN PRN Reason: Headache/Fever or Mild Pain Last Admin: 11/24/18 11:51 Dose: 650 mg Acetaminophen (Tylenol) 650 mg [place] Q4H PRN PRN Reason: Headache/Fever or Pain Al Hydroxide/Mg Hydroxide (Maalox) 30 ml PO Q6H PRN PRN Reason: Indigestion Bisacodyl (Dulcolax) 10 mg [place] DAILYPRN PRN PRN Reason: Constipation Last Admin: 11/20/18 16:12 Dose: 10 mg Diphenhydramine HCl (Benadryl) 50 mg PO Q6H PRN PRN Reason: Itching or Insomnia Last Admin: 11/18/18 22:40 Dose: 50 mg Docusate Sodium (Colace) 100 mg PO BIDPRN PRN PRN Reason: Constipation Last Admin: 11/20/18 10:31 Dose: 100 mg Famotidine (Pepcid) 20 mg PO BID ARIEL Last Admin: 11/24/18 09:21 Dose: 20 mg Glucagon (Glucagon) 1 mg IM PRN PRN PRN Reason: Hypoglycemia Hydralazine HCl (Apresoline) 5 mg SLOW IVP Q15M PRN PRN Reason: SBP > 190 Potassium Chloride 40 meq/ (Sodium Chloride) 270 mls @ 135 mls/hr IVPB ASDIR PRN PRN Reason: FOR SERUM K+ 2.5 - 3.5 Last Admin: 11/09/18 16:25 Dose: 270 mls Potassium Chloride 40 meq/ (Device) 100 mls @ 50 mls/hr IVPB ASDIR PRN PRN Reason: FOR SERUM K+ 2.5 - 3.5 Last Admin: 11/18/18 05:07 Dose: 100 mls Magnesium Sulfate 1 gm/ Sodium (Chloride) 102 mls @ 102 mls/hr IV PRN PRN PRN Reason: MAG LEVEL 1.4 - 2.0 Last Admin: 11/09/18 16:25 Dose: 102 mls Magnesium Sulfate 2 gm/ Device 50 mls @ 50 mls/hr IVPB ASDIR PRN PRN Reason: MAGNESIUM < 1.4 Potassium Phosphate 9 mmol/ (Sodium Chloride) 103 mls @ 25.75 mls/hr IVPB ASDIR PRN PRN Reason: Phosphate 1.0-1.8 Potassium Phosphate 12 mmol/ (Sodium Chloride) 254 mls @ 63.5 mls/hr IV ASDIR PRN PRN Reason: Serum phosphate 0.5-0.9 Potassium Phosphate 15 mmol/ (Sodium Chloride) 255 mls @ 63.75 mls/hr IV ASDIR PRN PRN Reason: Serum Phos < 0.5 Promethazine HCl 6.25 mg/ (Sodium Chloride) 50.25 mls @ 201 mls/hr IVPB Q6H PRN PRN Reason: Nausea Last Admin: 11/11/18 21:00 Dose: 50.25 mls Sodium Chloride (Normal Saline 0.9%) 1,000 mls @ 70 mls/hr IV .[id number] [facility] Last Admin: 11/24/18 09:21 Dose: 1,000 mls Insulin Human Lispro (Humalog) 0 units SC .MODERATE SLIDING SC PRN PRN Reason: Moderate Correctional Scale Last Admin: 11/23/18 06:21 Dose: 2 unit Labetalol HCl (Normodyne) 10 mg SLOW IVP Q15M PRN PRN Reason: SBP > 190 Magnesium Oxide (Magnesium Oxide) 400 mg PO BIDPRN PRN PRN Reason: FOR SERUM MAG 1.4 - 2.0 Magnesium Oxide (Magnesium Oxide) 800 mg PO PRN PRN PRN Reason: FOR SERUM MAG < 1.4 Melatonin (Melatonin) 3 mg PO HS PRN PRN Reason: Insomnia Last Admin: 11/23/18 21:50 Dose: 3 mg Midodrine (Proamatine) 5 mg PO TID ARIEL Last Admin: 11/24/18 10:40 Dose: 5 mg Miscellaneous Medication (Phos-Nak) 1 pkt PO TIDPRN PRN PRN Reason: FOR PHOS LEVEL 1.0 - 1.8 Miscellaneous Medication (Phos-Nak) 2 pkt PO TIDPRN PRN PRN Reason: FOR PHOS LEVEL 0.5 - 1.0 Morphine Sulfate (Morphine) 2 mg SLOW IVP Q4H PRN PRN Reason: Pain Last Admin: 11/23/18 05:34 Dose: 2 mg Ccu Electrolyte (Replacement Protocol) 0 each FS PRN PRN PRN Reason: FOR ELECTROLYTE REPLACEMENT No Hypotonic Solns 0 each FS .NO HYPOTONIC SOLNS ARIEL Ondansetron HCl (Zofran) 4 mg IVP Q6H PRN PRN Reason: Nausea/Vomiting Last Admin: 11/23/18 09:10 Dose: 4 mg Potassium Chloride (K-Dur) 40 meq PO ASDIR PRN PRN Reason: FOR SERUM K+ 2.5 - 3.5 Last Admin: 11/21/18 09:17 Dose: 40 meq Potassium Chloride (Klor-Con) 40 meq PER TUBE ASDIR PRN PRN Reason: FOR SERUM K+ 2.5-3.5 Promethazine HCl (Phenergan) 6.25 mg SLOW IVP Q6H PRN PRN Reason: Nausea/Vomiting Last Admin: 11/09/18 17:50 Dose: 6.25 mg Sodium Chloride (Flush - Normal Saline) 10 ml IVF Q12HR ARIEL Last Admin: 11/24/18 09:22 Dose: 10 ml Sodium Chloride (Flush - Normal Saline) 10 ml IVF PRN PRN PRN Reason: Saline Flush Tramadol HCl (Ultram) 50 mg PO Q6H PRN PRN Reason: Pain Last Admin: 11/24/18 02:05 Dose: 50 mg
[2018-11-24] MEDS: Melatonin 3 MG TAB PO PRN (20:18)
[2018-11-25 05:18] LABS: Anion Gap 15 mmol/L (10-20); BUN (Urea Nitrogen) 9 mg/dL (9.8-20.1); Calc. Creatinine Clearance 118 mL/min (70-130); Calcium 9.4 mg/dL (7.8-10.44); Carbon Dioxide 25 mmol/L (22-29); Chloride 103 mmol/L (98-107); Estimated GFR-MDRD Greater than 90; Glucose 115 mg/dL (70-105); Potassium 3.9 mmol/L (3.5-5.1); Sodium 139 mmol/L (136-145)
[2018-11-25 08:22] LABS: #Eosinphils 0.2 thou/uL (0.0-0.7); #Lymphocytes 1.7 thou/uL (1.20-3.40); #Monocytes 0.6 thou/uL (0.11-0.59); #Neutrophils 4.1 thou/uL (1.40-6.50); %Basophils 0.3 % (0.0-1.0); %Eosinophils 2.7 % (0.0-10.0); %Lymphocytes 25.8 % (21.0-51.0); %Monocytes 9.1 % (0.0-10.0); %Neutrophils 62.1 % (42.0-75.0); Hemoglobin 10.1 g/dL (12.0-16.0); Mean Corpuscular HGB CONC 33.1 g/dL (32.0-36.0); Mean Corpuscular Hemoglobin 30.3 pg (27.0-31.0); Mean Corpuscular Volume 91.8 fL (78.0-98.0); Mean Platelet Volume 7.1 fL (7.4-10.4); Platelet Count 406 thou/uL (130-400); RBC Distribution Width 12.9 % (11.5-14.5); Red Blood Cell (RBC) Count 3.31 mill/uL (4.20-5.40); White Blood Cell (WBC) Count 6.6 thou/uL (4.8-10.8)
[2018-11-25] MEDS: Acetaminophen 325 MG TAB PO PRN ×3 (09:11→17:05)
[2018-11-25] MEDS: Midodrine HCl 5 MG TAB PO SCH ×3 (09:11→20:46)
[2018-11-25] MEDS: traMADol HCl 50 MG TAB PO PRN ×3 (09:11→21:50)
[2018-11-25] MEDS: Famotidine 20 MG TAB PO SCH ×2 (09:11→20:47)
--- NOTE | 2018-11-25 09:34 | PRG ---
DATE OF SERVICE: 11/25/2018 SUBJECTIVE: The patient is currently sitting up, eating, appears to be doing well. Had no events overnight. OBJECTIVE: VITAL SIGNS: Temperature 98.2, pulse 87, blood pressure 103/67, O2 saturation 97%. HEENT: Unremarkable. NECK: No adenopathy. No JVD. CARDIAC: S1, S2. Regular. ABDOMEN: Soft. EXTREMITIES: No edema. LABORATORY DATA: Sodium 139, potassium 3.9, BUN 9, creatinine 0.6, glucose 115. ASSESSMENT: 1. Status post aneurysmal clipping. 2. Cerebral vasospasm, which appears to be resolved. 3. Transient high blood pressure. PLAN: Continue midodrine as needed for low blood pressure. I think she can probably wean off this medicine in the upcoming days. Continue physical therapy. Job ID: [id number]
--- NOTE | 2018-11-25 12:57 | PDOC.PN ---
- Subjective Encounter Start Date: 11/25/18 Encounter Start Time: 07:15 Subjective: is sitting in chair, eating breakfast -: has headache -: is able to move all extremities, family at bedside - Objective MAR Reviewed: Yes Vital Signs & Weight: Vital Signs (12 hours) Temp Pulse Resp BP Pulse Ox 11/25/18 11:15 97.6 F 78 22 H 126/80 99 11/25/18 08:00 98.4 F 94 24 H 89/59 L 99 11/25/18 04:23 98.2 F 77 16 103/67 97 Weight Admit Weight 168 lb Weight 160 lb Most Recent Monitor Data Heart Rate from ECG 82 NIBP 99/47 NIBP BP-Mean 64 Respiration from ECG 24 SpO2 96 I&O: 11/24/18 11/25/18 11/26/18 06:59 06:59 06:59 Intake Total 3016 1330 Output Total 3875 2075 Balance 641 -685 Result Diagrams: 11/25/18 07:38 11/25/18 04:33 Additional Labs: Accuchecks 11/25/18 11/25/18 11/24/18 11:22 05:42 21:47 POC Glucose 121 H 113 H 129 H 11/24/18 16:47 POC Glucose 168 H Phys Exam - Physical Examination HEENT: PERRLA, moist MMs Neck: no JVD, supple Respiratory: no wheezing, no rales Cardiovascular: RRR, no significant murmur Gastrointestinal: soft, non-tender, positive bowel sounds Musculoskeletal: no edema, pulses present Neurological: non-focal, moves all 4 limbs Psychiatric: A&O x 3 Dx/Plan (1) SAH (subarachnoid hemorrhage) Code(s): I60.9 - NONTRAUMATIC SUBARACHNOID HEMORRHAGE, UNSPECIFIED Status: Acute Comment: due to aneurysmal rupture, s/p clipping Left PCOM and Left MCA aneurysms (2) Intracranial aneurysm Code(s): I67.1 - CEREBRAL ANEURYSM, NONRUPTURED Status: Resolved Comment: s/ p clipping (3) HTN (hypertension) Code(s): I10 - ESSENTIAL (PRIMARY) HYPERTENSION Status: Acute Qualifiers: Hypertension type: essential hypertension Qualified Code(s): I10 - Essential (primary) hypertension Comment: currently hypotensive on midodrine (4) Physical deconditioning Code(s): R53.81 - OTHER MALAISE Status: Acute (5) Postoperative anemia Code(s): D64.9 - ANEMIA, UNSPECIFIED Status: Acute - Plan hemostable -: to work with PT and mobilize more as tolerated -: on midodrine, gentle iv hydration, add feso4 -: If sbp remains stable then dc planning to ?rehab * . Review of Systems - Medications/Allergies Allergies/Adverse Reactions: Allergies Allergy/AdvReac Type Severity Reaction Status Date / Time No Known Allergies Allergy Verified 09/19/13 17:25 Medications: Current Medications Acetaminophen (Tylenol) 650 mg PO Q4H PRN PRN Reason: Headache/Fever or Mild Pain Last Admin: 11/25/18 09:11 Dose: 650 mg Acetaminophen (Tylenol) 650 mg IN Q4H PRN PRN Reason: Headache/Fever or Pain Al Hydroxide/Mg Hydroxide (Maalox) 30 ml PO Q6H PRN PRN Reason: Indigestion Bisacodyl (Dulcolax) 10 mg IN DAILYPRN PRN PRN Reason: Constipation Last Admin: 11/20/18 16:12 Dose: 10 mg Diphenhydramine HCl (Benadryl) 50 mg PO Q6H PRN PRN Reason: Itching or Insomnia Last Admin: 11/18/18 22:40 Dose: 50 mg Docusate Sodium (Colace) 100 mg PO BIDPRN PRN PRN Reason: Constipation Last Admin: 11/20/18 10:31 Dose: 100 mg Famotidine (Pepcid) 20 mg PO BID ARIEL Last Admin: 11/25/18 09:11 Dose: 20 mg Glucagon (Glucagon) 1 mg IM PRN PRN PRN Reason: Hypoglycemia Hydralazine HCl (Apresoline) 5 mg SLOW IVP Q15M PRN PRN Reason: SBP > 190 Potassium Chloride 40 meq/ (Sodium Chloride) 270 mls @ 135 mls/hr IVPB ASDIR PRN PRN Reason: FOR SERUM K+ 2.5 - 3.5 Last Admin: 11/09/18 16:25 Dose: 270 mls Potassium Chloride 40 meq/ (Device) 100 mls @ 50 mls/hr IVPB ASDIR PRN PRN Reason: FOR SERUM K+ 2.5 - 3.5 Last Admin: 11/18/18 05:07 Dose: 100 mls Magnesium Sulfate 1 gm/ Sodium (Chloride) 102 mls @ 102 mls/hr IV PRN PRN PRN Reason: MAG LEVEL 1.4 - 2.0 Last Admin: 11/09/18 16:25 Dose: 102 mls Magnesium Sulfate 2 gm/ Device 50 mls @ 50 mls/hr IVPB ASDIR PRN PRN Reason: MAGNESIUM < 1.4 Potassium Phosphate 9 mmol/ (Sodium Chloride) 103 mls @ 25.75 mls/hr IVPB ASDIR PRN PRN Reason: Phosphate 1.0-1.8 Potassium Phosphate 12 mmol/ (Sodium Chloride) 254 mls @ 63.5 mls/hr IV ASDIR PRN PRN Reason: Serum phosphate 0.5-0.9 Potassium Phosphate 15 mmol/ (Sodium Chloride) 255 mls @ 63.75 mls/hr IV ASDIR PRN PRN Reason: Serum Phos < 0.5 Promethazine HCl 6.25 mg/ (Sodium Chloride) 50.25 mls @ 201 mls/hr IVPB Q6H PRN PRN Reason: Nausea Last Admin: 11/11/18 21:00 Dose: 50.25 mls Sodium Chloride (Normal Saline 0.9%) 1,000 mls @ 70 mls/hr IV .[id number] COUNTS INCLUDE 234 BEDS AT THE [facility] Last Admin: 11/24/18 21:17 Dose: Not Given Insulin Human Lispro (Humalog) 0 units SC .MODERATE SLIDING SC PRN PRN Reason: Moderate Correctional Scale Last Admin: 11/23/18 06:21 Dose: 2 unit Labetalol HCl (Normodyne) 10 mg SLOW IVP Q15M PRN PRN Reason: SBP > 190 Magnesium Oxide (Magnesium Oxide) 400 mg PO BIDPRN PRN PRN Reason: FOR SERUM MAG 1.4 - 2.0 Magnesium Oxide (Magnesium Oxide) 800 mg PO PRN PRN PRN Reason: FOR SERUM MAG < 1.4 Melatonin (Melatonin) 3 mg PO HS PRN PRN Reason: Insomnia Last Admin: 11/24/18 20:18 Dose: 3 mg Midodrine (Proamatine) 5 mg PO TID COUNTS INCLUDE 234 BEDS AT THE [facility] Last Admin: 11/25/18 09:11 Dose: 5 mg Miscellaneous Medication (Phos-Nak) 1 pkt PO TIDPRN PRN PRN Reason: FOR PHOS LEVEL 1.0 - 1.8 Miscellaneous Medication (Phos-Nak) 2 pkt PO TIDPRN PRN PRN Reason: FOR PHOS LEVEL 0.5 - 1.0 Morphine Sulfate (Morphine) 2 mg SLOW IVP Q4H PRN PRN Reason: Pain Last Admin: 11/23/18 05:34 Dose: 2 mg Ccu Electrolyte (Replacement Protocol) 0 each FS PRN PRN PRN Reason: FOR ELECTROLYTE REPLACEMENT No Hypotonic Solns 0 each FS .NO HYPOTONIC SOLNS ARIEL Ondansetron HCl (Zofran) 4 mg IVP Q6H PRN PRN Reason: Nausea/Vomiting Last Admin: 11/23/18 09:10 Dose: 4 mg Potassium Chloride (K-Dur) 40 meq PO ASDIR PRN PRN Reason: FOR SERUM K+ 2.5 - 3.5 Last Admin: 11/21/18 09:17 Dose: 40 meq Potassium Chloride (Klor-Con) 40 meq PER TUBE ASDIR PRN PRN Reason: FOR SERUM K+ 2.5-3.5 Promethazine HCl (Phenergan) 6.25 mg SLOW IVP Q6H PRN PRN Reason: Nausea/Vomiting Last Admin: 11/09/18 17:50 Dose: 6.25 mg Sodium Chloride (Flush - Normal Saline) 10 ml IVF Q12HR ARIEL Last Admin: 11/25/18 09:13 Dose: 10 ml Sodium Chloride (Flush - Normal Saline) 10 ml IVF PRN PRN PRN Reason: Saline Flush Tramadol HCl (Ultram) 50 mg PO Q6H PRN PRN Reason: Pain Last Admin: 11/25/18 09:11 Dose: 50 mg
[2018-11-25] MEDS: Sodium Chloride 0.9% 1,000 ML IV SCH (14:59)
--- NOTE | 2018-11-25 15:52 | PRG ---
DATE OF SERVICE: 11/25/2018 Ms. Mota is hospital day #17, postoperative day #15, having undergone left craniotomy for multiple aneurysm clippings. She was transferred to the floor, and her daughter notes that she has had significant insomnia which she has at baseline. She has not had any reported hallucinations. She does have continued headache, but this has improved with Tylenol and tramadol. She follows commands equally in all 4 extremities. She will likely need inpatient rehab, and we will work towards this. Her blood cultures remain negative, and her sodium today is 139 with normal white cell count. We will keep her on 70 mL of normal saline. Her cefepime has been discontinued. Please call with any changes in the patient's neurologic status. Job ID: [id number]
[2018-11-25] MEDS: Melatonin 3 MG TAB PO PRN (21:51)
[2018-11-26] MEDS: Acetaminophen 325 MG TAB PO PRN ×3 (00:41→17:05)
[2018-11-26] MEDS: Sodium Chloride 0.9% 1,000 ML IV SCH (03:25)
[2018-11-26] MEDS: traMADol HCl 50 MG TAB PO PRN (06:09)
[2018-11-26 06:25] LABS: #Basophils 0.1 thou/uL (0.0-0.2); #Eosinphils 0.2 thou/uL (0.0-0.7); #Lymphocytes 2.4 thou/uL (1.20-3.40); #Monocytes 0.5 thou/uL (0.11-0.59); #Neutrophils 2.3 thou/uL (1.40-6.50); %Basophils 1.7 % (0.0-1.0); %Eosinophils 3.5 % (0.0-10.0); %Monocytes 9.2 % (0.0-10.0); %Neutrophils 41.5 % (42.0-75.0); Hemoglobin 10.5 g/dL (12.0-16.0); Mean Corpuscular HGB CONC 33.7 g/dL (32.0-36.0); Mean Corpuscular Volume 91.9 fL (78.0-98.0); Platelet Count 390 thou/uL (130-400); RBC Distribution Width 12.9 % (11.5-14.5); Red Blood Cell (RBC) Count 3.37 mill/uL (4.20-5.40); White Blood Cell (WBC) Count 5.4 thou/uL (4.8-10.8)
[2018-11-26 06:41] LABS: Anion Gap 11 mmol/L (10-20); BUN (Urea Nitrogen) 10 mg/dL (9.8-20.1); Calc. Creatinine Clearance 114 mL/min (70-130); Calcium 9.5 mg/dL (7.8-10.44); Carbon Dioxide 28 mmol/L (22-29); Chloride 101 mmol/L (98-107); Estimated GFR-MDRD Greater than 90; Glucose 109 mg/dL (70-105); Potassium 3.9 mmol/L (3.5-5.1); Sodium 136 mmol/L (136-145)
[2018-11-26] MEDS ORDERED: Ferrous Sulfate 325 MG TAB PO SCH (08:00)
[2018-11-26] MEDS: Famotidine 20 MG TAB PO SCH (08:14)
[2018-11-26] MEDS: Morphine 2 MG/ML SYRINGE SLOW IVP PRN (08:18)
[2018-11-26] MEDS: Midodrine HCl 5 MG TAB PO SCH (09:07)
--- NOTE | 2018-11-26 10:04 | PRG ---
DATE OF SERVICE: 11/26/2018 SUBJECTIVE: Ms. Mota is feeling better. She wants to go home. She is complaining of some mild abdominal pain. OBJECTIVE: VITAL SIGNS: Her temperature is 97.9, pulse 86, respirations 14, O2 saturation 99%, and blood pressure 122/58. HEENT: Unremarkable. NECK: No adenopathy or JVD. LUNGS: Clear to auscultation. CARDIAC: S1, S2. Regular. ABDOMEN: Soft. EXTREMITIES: No edema. LABORATORY DATA: White blood cell count 5.4, hematocrit 31, platelet count 390. Sodium 136, potassium 3.9, chloride 101, CO2 of 28, BUN 10, creatinine 0.6 and glucose 109. ASSESSMENT: 1. Status post aneurysmal bleed. 2. Status post aneurysmal clipping. 3. Problems with vasospasm, which seem to have been resolved. 4. Problems with persistent hypotension, which seems to have resolved. PLAN: I will stop her midodrine and make sure she does okay over the next 24 hours. I would think she is going to be able to be discharged soon. We will stop her IV fluids and see if we can keep her vasospasm symptoms from reoccurring. Job ID: [id number]
--- NOTE | 2018-11-26 12:26 | PRG ---
DATE OF SERVICE: 11/26/2018 SUBJECTIVE: Ms. Mota looks much better today than she did yesterday. Her family notes that she did sleep some last night. Her normal saline has been discontinued and her sodium is at 136 today. White blood cell count is within normal limits. We will continue to work with therapies. OBJECTIVE: On physical exam, the patient is awake, alert, and appropriate. She follows commands equally in all four extremities. She looks more comfortable today than she did yesterday. ASSESSMENT AND PLAN: The main thing now is getting her to inpatient rehab, and from neurosurgical standpoint, we are fine with this. I would like to remove her sonali prior to discharge. She does have her bone flap, so no need for a cranial helmet on discharge. Also, the patient has no need for repeat imaging at this time, and in regard to followup, we would like a phone call from the family in 6 weeks. Certainly, should her symptoms change, they may call sooner, but otherwise we will work towards dismissal and the patient is overall improving well. Please call with any changes in the patient's neurologic status. Job ID: [id number]
[2018-11-26] MEDS: Promethazine HCl 25 MG/ML VIAL SLOW IVP PRN (14:16)
[2018-11-26 15:39] VITALS: BP 114/75; TEMP 98.5
[2018-11-26] MEDS ORDERED: traMADol HCl 50 MG TAB PO PRN (16:34)
--- NOTE | 2018-11-29 15:18 | DIS ---
DATE OF ADMISSION: 11/08/2018 DATE OF DISCHARGE: 11/26/2018 This is Greg Chilel PA-C dictating a report for Maxi Cifuentes MD. DISCHARGE DIAGNOSES: 1. Subarachnoid hemorrhage secondary to ruptured aneurysm, left PCOM and left MCA. 2. Hypertension. 3. Diabetes mellitus, type 2. HOSPITAL COURSE: Ms. Mota presented to [facility] with sudden onset of worst headache of her life. She was later found to have two aneurysms, one in the left SORTING MACHINE OPERATOR and one in the left MCA. The SORTING MACHINE OPERATOR which had a rupture resulting in subarachnoid hemorrhage. Our colleague, Dr. Crow attempted to coil the aneurysm; however, they were unable to do this, and Dr. Cifuentes performed aneurysm clipping of both the left MCA and SORTING MACHINE OPERATOR aneurysm. The patient tolerated the procedure well and required several overnight stays in the ICU as well as on the surgical floor for adequate control of blood pressure, monitoring for vasospasm in rehab. The patient was later discharged to inpatient rehab to undergo continued physical therapy, and her sonali were removed prior to her discharge. Appropriate patient education was provided with the understanding that her family will call the office in roughly 6 weeks with an update. At the time of discharge, the patient was in good condition. Job ID: [id number]
== END 2018-11-26 17:20 | DRG 20 ==
LOC: ERS 01:34 → CCU 02:21 → SURG B 11-18 19:49 → CCU 11-19 09:56 → SURG A 11-24 16:19
PROVIDERS: ADMIT Neurological Surgery; ATTEND Neurological Surgery
PROC: B31F1ZZ Fluoroscopy of Left Vertebral Artery using Low Osmolar Contrast (ICD-10-PCS; 2018-11-08)
PROC: 03LG0CZ Occlusion of Intracranial Artery with Extraluminal Device, Open Approach (ICD-10-PCS; principal; 2018-11-10)
PROC: 03LG0CZ Occlusion of Intracranial Artery with Extraluminal Device, Open Approach (ICD-10-PCS; 2018-11-10)
PROC: 02HV33Z Insertion of Infusion Device into Superior Vena Cava, Percutaneous Approach (ICD-10-PCS; 2018-11-11)
PROC: 0DH67UZ Insertion of Feeding Device into Stomach, Via Natural or Artificial Opening (ICD-10-PCS; 2018-11-16)
PROC: 3E033XZ Introduction of Vasopressor into Peripheral Vein, Percutaneous Approach (ICD-10-PCS; 2018-11-19)
DX: I60.32 Nontraumatic subarachnoid hemorrhage from left posterior communicating artery (principal); G93.6 Cerebral edema; G93.41 Metabolic encephalopathy; A41.9 Sepsis, unspecified organism; I67.848 Other cerebrovascular vasospasm and vasoconstriction; E87.1 Hypo-osmolality and hyponatremia; I16.1 Hypertensive emergency; I67.1 Cerebral aneurysm, nonruptured; E11.22 Type 2 diabetes mellitus with diabetic chronic kidney disease; G47.00 Insomnia, unspecified; E87.6 Hypokalemia; I12.9 Hypertensive chronic kidney disease with stage 1 through stage 4 chronic kidney disease, or unspecified chronic kidney disease; N18.2 Chronic kidney disease, stage 2 (mild); Z79.84 Long term (current) use of oral hypoglycemic drugs; Z79.899 Other long term (current) drug therapy
CPT/HCPCS: 36215; 36415; 36416; 36569; 51702; 70450; 70496; 71045; 74018; 80048; 80053; 80202; 81002; 81003; 81015; 82805; 83735; 83930; 84100; 84295; 85025; 85610; 85730; 86850; 86900; 86901; 87040; 87086; 93970; 96365; 96366; 96375; A4217; A4353; C1713; C1751; C1769; J0131; J0692; J1100; J1200; J1644; J1815; J2001; J2250; J2270; J2405; J2440; J2550; J2704; J2765; J3010; J3370; J3475; J3480; J3490; J7050; Q9966; Q9967; S0028

== ENCOUNTER 2019-03-04 19:52 | Emergency (ER) | payer BC ==
[2019-03-04 20:46] LABS: #Basophils 0.1 thou/uL (0.0-0.2); #Eosinphils 0.1 thou/uL (0.0-0.7); #Lymphocytes 3.1 thou/uL (1.20-3.40); #Monocytes 0.6 thou/uL (0.11-0.59); #Neutrophils 4.5 thou/uL (1.40-6.50); %Basophils 0.8 % (0.0-1.0); %Eosinophils 1.7 % (0.0-10.0); %Lymphocytes 37.2 % (21.0-51.0); %Monocytes 6.8 % (0.0-10.0); %Neutrophils 53.5 % (42.0-75.0); Hemoglobin 13.6 g/dL (12.0-16.0); Mean Corpuscular HGB CONC 32.5 g/dL (32.0-36.0); Mean Corpuscular Volume 89.4 fL (78.0-98.0); Mean Platelet Volume 7.6 fL (7.4-10.4); Platelet Count 268 thou/uL (130-400); RBC Distribution Width 12.9 % (11.5-14.5); Red Blood Cell (RBC) Count 4.67 mill/uL (4.20-5.40); White Blood Cell (WBC) Count 8.3 thou/uL (4.8-10.8)
[2019-03-04 21:06] LABS: ALT (SGPT) 14 U/L (8-55); AST (SGOT) 15 U/L (5-34); Albumin 4.3 g/dL (3.5-5.0); Alkaline Phosphatase 137 U/L (40-150); Anion Gap 13 mmol/L (10-20); BUN (Urea Nitrogen) 15 mg/dL (9.8-20.1); Bilirubin, Total 0.3 mg/dL (0.2-1.2); Calc. Creatinine Clearance 0 mL/min (70-130); Calcium 9.5 mg/dL (7.8-10.44); Carbon Dioxide 24 mmol/L (22-29); Chloride 105 mmol/L (98-107); Estimated GFR-MDRD Greater than 90; Globulin 3.9 g/dL (2.4-3.5); Glucose 102 mg/dL (70-105); Potassium 3.9 mmol/L (3.5-5.1); Protein, Total 8.2 g/dL (6.0-8.3); Sodium 138 mmol/L (136-145)
--- NOTE | 2019-03-04 23:03 | CT ---
CT Brain WO Con: 03/04/2019 12:00 AM CLINICAL HISTORY: Emergency exam, hypertension. COMPARISON: 11/19/2018 FINDINGS: Hemorrhage: None. Ventricular system: Normal in size and morphology for the patient's age. Cerebral parenchyma: Multifocal encephalomalacia of the left cerebral hemisphere. Midline shift: None. Mass: No mass effect. Calvarium: Postoperative alteration of the left calvarium from prior craniotomy. Visualized Paranasal sinuses: Scattered mild inflammatory mucosal thickening. Redemonstration of aneurysm clipping at the left middle cranial fossa and left parasellar region. IMPRESSION: Postoperative head CT, with evidence of prior left side craniotomy and associated aneurysm clips. No acute intracranial hemorrhage or mass effect.
== END 2019-03-04 23:57 | disposition home or self-care (01) ==
LOC: ERS 19:52
DX: I10 Essential (primary) hypertension (principal); E11.9 Type 2 diabetes mellitus without complications; E78.00 Pure hypercholesterolemia, unspecified; I67.1 Cerebral aneurysm, nonruptured; Z79.891 Long term (current) use of opiate analgesic; Z79.899 Other long term (current) drug therapy; Z79.84 Long term (current) use of oral hypoglycemic drugs
CPT/HCPCS: 36415; 70450; 80053; 85025